=== PATIENT | female | born 1970 | race Caucasian/White ===

== ENCOUNTER 2018-01-17 07:38 | Inpatient (IN) ==
--- NOTE | 2018-01-17 07:41 | Emergency Department Note ---
Disposition Clinical Impression: Chest pain, Elevated troponin I level, NSTEMI (non-ST elevated myocardial infarction) Disposition: Admitted As Inpatient Condition: Good General Adult HPI - General Chief complaint: ED Chest Pain Stated complaint: Chest pain Time Seen by Provider: 01/17/18 07:40 - Related Data Home Medications Medication Instructions Recorded Confirmed Atorvastatin [Lipitor] 10 mg PO HS 10/12/17 01/17/18 Clopidogrel [Plavix] 75 mg PO DAILY 10/12/17 01/17/18 Levothyroxine [Synthroid] 75 mcg PO 0630 10/12/17 01/17/18 Lisinopril [Zestril] 10 mg PO DAILY 10/12/17 01/17/18 Aspirin [Lo-Dose Aspirin EC] 81 mg PO DAILY 01/17/18 01/17/18 Previous Rx's Medication Instructions Recorded Tramadol HCl [Ultram] 50 mg PO TID PRN 3 Days #9 tab 01/14/18 Allergies Allergy/AdvReac Type Severity Reaction Status Date / Time codeine AdvReac Vomiting Verified 01/17/18 08:16 anesthesia AdvReac Drowsy Uncoded 01/17/18 08:16 Past Medical History - Past Medical History Medical history: Reports: non-contributory Surgical history: Reports: angioplasty/stent Psychiatric history: Reports: no psych history - Social History Smoking Status: Never smoker Smokeless Tobacco Status: No Alcohol use: Reports: none Drug use: Reports: none Course Vital Signs Temperature 98.5 F 01/17/18 07:39 Pulse Rate 75 01/17/18 07:39 Respiratory Rate 16 01/17/18 07:39 Blood Pressure 126/65 01/17/18 07:39 O2 Sat by Pulse Oximetry 100 01/17/18 07:39 Temperature 98.2 F 01/17/18 15:30 Pulse Rate 79 01/17/18 15:30 Respiratory Rate 18 01/17/18 15:30 Blood Pressure 107/64 01/17/18 15:30 O2 Sat by Pulse Oximetry 95 01/17/18 15:30 Oxygen Delivery Oxygen Delivery Room Air Medical Decision Making - Lab Data Result diagrams: 01/17/18 14:35 01/17/18 08:06 Lab Results 01/17/18 01/17/18 01/17/18 Range/Units 08:06 08:06 08:06 WBC 14.2 H (4.3-11.1) K/mcL RBC 4.61 (3.82-4.97) M/mcL Hgb 13.1 (11.5-15.4) g/dL Hct 40.6 (35.3-44.9) % MCV 88.1 (83.0-100.0) fL MCH 28.4 (28.0-33.3) pg MCHC 32.3 (31.6-35.5) g/dL RDW 13.2 (11.5-14.5) % Plt Count 269 (140-400) K/mcL MPV 10.6 (9.4-12.4) fL Immature Gran % 0.7 (0-4) % Seg Neutrophils % 65.4 % Lymphocytes % 26.3 % Monocytes % 5.9 % Eosinophils % 1.3 % Basophils % 0.4 % Neutrophils # 9.3 H (1.6-8.9) K/mcL Lymphocytes # 3.7 (0.6-4.6) K/mcL Monocytes # 0.8 (0.0-1.3) K/mcL Eosinophils # 0.2 (0.0-0.6) K/mcL Basophils # 0.1 (0.0-0.2) K/mcL Immature Plt Fraction 5.1 (1.1-6.1) % PT 10.9 (9.4-12.1) Seconds INR 1.0 APTT 26.3 (26.0-36.0) Seconds Sodium 137 (136-145) mEq/L Potassium 4.5 (3.5-5.1) mEq/L Chloride 105 (98-107) mEq/L Carbon Dioxide 26 (23-29) mEq/L BUN 14 (6-20) mg/dL Creatinine 0.83 (0.60-1.20) mg/dL Est GFR ( Amer) > 60 (> 60) Est GFR (Non-Af Amer) > 60 (> 60) BUN/Creatinine Ratio 17 (6-26) Glucose 150 H (70-105) mg/dL Calculated Osmolality 287 (280-300) Calcium 8.9 (8.6-10.3) mg/dL Troponin I (< 0.04) ng/mL 01/17/18 Range/Units 08:06 WBC (4.3-11.1) K/mcL RBC (3.82-4.97) M/mcL Hgb (11.5-15.4) g/dL Hct (35.3-44.9) % MCV (83.0-100.0) fL MCH (28.0-33.3) pg MCHC (31.6-35.5) g/dL RDW (11.5-14.5) % Plt Count (140-400) K/mcL MPV (9.4-12.4) fL Immature Gran % (0-4) % Seg Neutrophils % % Lymphocytes % % Monocytes % % Eosinophils % % Basophils % % Neutrophils # (1.6-8.9) K/mcL Lymphocytes # (0.6-4.6) K/mcL Monocytes # (0.0-1.3) K/mcL Eosinophils # (0.0-0.6) K/mcL Basophils # (0.0-0.2) K/mcL Immature Plt Fraction (1.1-6.1) % PT (9.4-12.1) Seconds INR APTT (26.0-36.0) Seconds Sodium (136-145) mEq/L Potassium (3.5-5.1) mEq/L Chloride (98-107) mEq/L Carbon Dioxide (23-29) mEq/L BUN (6-20) mg/dL Creatinine (0.60-1.20) mg/dL Est GFR ( Amer) (> 60) Est GFR (Non-Af Amer) (> 60) BUN/Creatinine Ratio (6-26) Glucose (70-105) mg/dL Calculated Osmolality (280-300) Calcium (8.6-10.3) mg/dL Troponin I 0.05 H* (< 0.04) ng/mL Attestation Statement - Attestation Attestation: I examined this patient and my medical decision-making was reviewed with the Resident Physician. I agree with the documented findings, disposition and treatment plan as described except to the extent set forth below. Reri-[id number]-[id number] time provided Patient arrives complaining of chest discomfort. She arrives by EMS from home. She was evaluated upon arrival by both myself and the resident physician Dr. Soria. ECG ordered
--- NOTE | 2018-01-17 07:44 | Emergency Department Note ---
Disposition Clinical Impression: Elevated troponin I level, NSTEMI (non-ST elevated myocardial infarction) Chest pain Qualifiers: Chest pain type: unspecified Qualified Code(s): R07.9 - Chest pain, unspecified Disposition: Admitted As Inpatient Condition: Good Chest Pain HPI - General Chief Complaint: ED Chest Pain Stated Complaint: Chest pain Time Seen by Provider: 01/17/18 07:40 Source: patient Limitations: no limitations Vital Signs Reviewed: Yes Nursing Notes Reviewed: Yes - History of Present Illness HPI Narrative: 39-year-old female history of CAD, status post 2 stents, presents complaint of chest pain, substernal with radiation to her neck, she did take aspirin in route by EMS but refused nitroglycerin initially. She states her pain is 8 out of 10, cramping feels like pressure and tightness in quality. Patient is no history of DVT or PE. No history of recent hemoptysis hematochezia or melena. Pt complaint: chest pain Severity scale (1-10): 9 - Related Data Home Medications Medication Instructions Recorded Confirmed Atorvastatin [Lipitor] 10 mg PO HS 10/12/17 01/17/18 Clopidogrel [Plavix] 75 mg PO DAILY 10/12/17 01/17/18 Levothyroxine [Synthroid] 75 mcg PO 0630 10/12/17 01/17/18 Lisinopril [Zestril] 10 mg PO DAILY 10/12/17 01/17/18 Aspirin [Lo-Dose Aspirin EC] 81 mg PO DAILY 01/17/18 01/17/18 Previous Rx's Medication Instructions Recorded Tramadol HCl [Ultram] 50 mg PO TID PRN 3 Days #9 tab 01/14/18 Allergies Allergy/AdvReac Type Severity Reaction Status Date / Time codeine AdvReac Vomiting Verified 01/17/18 08:16 anesthesia AdvReac Drowsy Uncoded 01/17/18 08:16 All systems ED: reviewed and negative except as stated. Review of Systems: As Per HPI Constitutional: Denies: fever, chills Eyes: Denies: eye pain ENT ED: Denies: ear pain Cardiovascular: Reports: as per HPI, chest pain Respiratory: Denies: cough, dyspnea Gastrointestinal: Denies: abdominal pain Genitourinary: Denies: urgency, dysuria Musculoskeletal: Denies: back pain Integumentary: Denies: rash Chest Pain PMH - Past Medical History Medical history: Reports: non-contributory Surgical history: Reports: angioplasty/stent Psychiatric history: Reports: no psych history - Social History Smoking Status: Never smoker Alcohol use: Reports: none Drug use: Reports: none Physical Exam Constitutional: Middle-aged female appears uncomfortable. Vital signs stable Neck: normal inspection, neck is supple, no JVD Resp: normal chest inspection, CTA bilaterally, no resp distress, no wheezes/ rales/rhonchi CV: RRR, no murmurs/gallops/rubs, S1 and S2 heard Extremity: +2 bilateral radial and posterial tibial pulses, no pedal edema GI: normal inspection, Soft, NTND, no peritoneal signs, no palpable abdominal aortic aneurysm Back: normal inspection, no tenderness to palpation Neuro: A&O3, no gross motor or sensory deficits bilaterally MSK: normal inspection, bilateral UE and LE with normal ROM Skin: No rashes, skin warm, dry, intact - General Limitations: no limitations General appearance: alert, in distress Course Course Narrative: 39-year-old female with CAD, records request obtain CBC BMP troponin, EKG shows no acute ischemic changes, nitroglycerin trial started. Aspirin was already given prehospital. - Reevaluation(s) Reevaluation #1: Admitted to the hospitalist Dr. Ventura currently completely chest pain- free, admitted for an STEMI, elevated troponin chest pain, hospital service Time: 10:51 Vital Signs Temperature 98.5 F 01/17/18 07:39 Pulse Rate 75 01/17/18 07:39 Respiratory Rate 16 01/17/18 07:39 Blood Pressure 126/65 01/17/18 07:39 O2 Sat by Pulse Oximetry 100 01/17/18 07:39 Temperature 98.5 F 01/17/18 07:39 Pulse Rate 78 01/17/18 08:37 Respiratory Rate 20 01/17/18 09:46 Blood Pressure 137/75 01/17/18 09:46 O2 Sat by Pulse Oximetry 98 01/17/18 08:37 Oxygen Delivery Oxygen Delivery Room Air Chest Pain - Differential Diagnosis Likely: atypical chest pain, chest pain - Medical Records Medical records reviewed: Yes I reviewed the patient's medical records. - Lab Data Lab results reviewed: Yes I reviewed the patient's lab results. Result diagrams: 01/17/18 08:06 01/17/18 08:06 Lab Results 01/17/18 01/17/18 01/17/18 Range/Units 08:06 08:06 08:06 WBC 14.2 H (4.3-11.1) K/mcL RBC 4.61 (3.82-4.97) M/mcL Hgb 13.1 (11.5-15.4) g/dL Hct 40.6 (35.3-44.9) % MCV 88.1 (83.0-100.0) fL MCH 28.4 (28.0-33.3) pg MCHC 32.3 (31.6-35.5) g/dL RDW 13.2 (11.5-14.5) % Plt Count 269 (140-400) K/mcL MPV 10.6 (9.4-12.4) fL Immature Gran % 0.7 (0-4) % Seg Neutrophils % 65.4 % Lymphocytes % 26.3 % Monocytes % 5.9 % Eosinophils % 1.3 % Basophils % 0.4 % Neutrophils # 9.3 H (1.6-8.9) K/mcL Lymphocytes # 3.7 (0.6-4.6) K/mcL Monocytes # 0.8 (0.0-1.3) K/mcL Eosinophils # 0.2 (0.0-0.6) K/mcL Basophils # 0.1 (0.0-0.2) K/mcL Immature Plt Fraction 5.1 (1.1-6.1) % PT 10.9 (9.4-12.1) Seconds INR 1.0 APTT 26.3 (26.0-36.0) Seconds Sodium 137 (136-145) mEq/L Potassium 4.5 (3.5-5.1) mEq/L Chloride 105 (98-107) mEq/L Carbon Dioxide 26 (23-29) mEq/L BUN 14 (6-20) mg/dL Creatinine 0.83 (0.60-1.20) mg/dL Est GFR ( Amer) > 60 (> 60) Est GFR (Non-Af Amer) > 60 (> 60) BUN/Creatinine Ratio 17 (6-26) Glucose 150 H (70-105) mg/dL Calculated Osmolality 287 (280-300) Calcium 8.9 (8.6-10.3) mg/dL Troponin I (< 0.04) ng/mL 01/17/18 Range/Units 08:06 WBC (4.3-11.1) K/mcL RBC (3.82-4.97) M/mcL Hgb (11.5-15.4) g/dL Hct (35.3-44.9) % MCV (83.0-100.0) fL MCH (28.0-33.3) pg MCHC (31.6-35.5) g/dL RDW (11.5-14.5) % Plt Count (140-400) K/mcL MPV (9.4-12.4) fL Immature Gran % (0-4) % Seg Neutrophils % % Lymphocytes % % Monocytes % % Eosinophils % % Basophils % % Neutrophils # (1.6-8.9) K/mcL Lymphocytes # (0.6-4.6) K/mcL Monocytes # (0.0-1.3) K/mcL Eosinophils # (0.0-0.6) K/mcL Basophils # (0.0-0.2) K/mcL Immature Plt Fraction (1.1-6.1) % PT (9.4-12.1) Seconds INR APTT (26.0-36.0) Seconds Sodium (136-145) mEq/L Potassium (3.5-5.1) mEq/L Chloride (98-107) mEq/L Carbon Dioxide (23-29) mEq/L BUN (6-20) mg/dL Creatinine (0.60-1.20) mg/dL Est GFR ( Amer) (> 60) Est GFR (Non-Af Amer) (> 60) BUN/Creatinine Ratio (6-26) Glucose (70-105) mg/dL Calculated Osmolality (280-300) Calcium (8.6-10.3) mg/dL Troponin I 0.05 H* (< 0.04) ng/mL - Radiology Data Radiology results reviewed: Yes I reviewed the patient's radiology results. Chest X-Ray 01/17/18 07:43 IMPRESSION: No acute process. D/ / Kaleb Renee MD / Kaleb Renee MD Interpreting Provider: Kaleb Renee MD - EKG Data EKG attestation: Yes I reviewed and interpreted this EKG. EKG shows normal: sinus rhythm Rate: normal Rhythm: NSR (95 bpm [place] 120 QRS [address] segment elevations or depressions.) [place]/QRS: normal Heart Score - Score History: Moderately Suspicious EKG: Non Specific repolarisation Disturbance Age: 45-65 Risk Factors: 1-2 risk factors Troponin: Less than normal limit HEART Score Total: 4
[2018-01-17 08:14] LABS: Basophils # 0.1 K/mcL (0.0-0.2); Basophils % 0.4 %; Eosinophils # 0.2 K/mcL (0.0-0.6); Eosinophils % 1.3 %; Hematocrit 40.6 % (35.3-44.9); Hemoglobin 13.1 g/dL (11.5-15.4); Immature Granulocytes % 0.7 % (0-4); Immature Platelets 5.1 % (1.1-6.1); Lymphocytes # 3.7 K/mcL (0.6-4.6); Lymphocytes % 26.3 %; Mean Corpuscular HGB Conc 32.3 g/dL (31.6-35.5); Mean Corpuscular Hemoglobin 28.4 pg (28.0-33.3); Mean Corpuscular Volume 88.1 fL (83.0-100.0); Mean Platelet Volume 10.6 fL (9.4-12.4); Monocytes # 0.8 K/mcL (0.0-1.3); Monocytes % 5.9 %; Neutrophils # 9.3 K/mcL (1.6-8.9); Platelet Count 269 K/mcL (140-400); Red Blood Count 4.61 M/mcL (3.82-4.97); Red Cell Distribution Width 13.2 % (11.5-14.5); Segmented Neutrophils % 65.4 %
[2018-01-17 08:23] LABS: Prothrombin Time 10.9 Seconds (9.4-12.1)
[2018-01-17 08:25] LABS: Activated Partial Thrombo Time 26.3 Seconds (26.0-36.0)
[2018-01-17] MEDS: Nitroglycerin 0.4 MG TAB.SUBL SL ONE ×2 (08:28→08:33)
[2018-01-17 08:30] LABS: BUN/Creatinine Ratio 17 (6-26); Blood Urea Nitrogen 14 mg/dL (6-20); Calcium 8.9 mg/dL (8.6-10.3); Carbon Dioxide 26 mEq/L (23-29); Chloride 105 mEq/L (98-107); Glucose 150 mg/dL (70-105); Osmolality,Calculated 287 (280-300); Potassium 4.5 mEq/L (3.5-5.1); Sodium 137 mEq/L (136-145); eGFR For African Americans > 60 (> 60); eGFR For Non-African Americans > 60 (> 60)
[2018-01-17] MEDS ORDERED: *HR* HYDROcodone/Acet 5/325 mg TABLET PO PRN (09:31)
[2018-01-17] MEDS ORDERED: *HR* Promethazine 25 MG/ML VIAL IVP PRN (09:31)
[2018-01-17] MEDS ORDERED: Acetaminophen 325 MG TABLET PO PRN (09:31)
[2018-01-17] MEDS ORDERED: Ondansetron ODT 4 MG TAB.RAPDIS SL PRN (09:31)
[2018-01-17] MEDS ORDERED: Naloxone 0.4 MG/ML INJ IVP PRN (09:31)
[2018-01-17] MEDS ORDERED: traMADol 50 MG TABLET PO PRN (11:00)
[2018-01-17] MEDS ORDERED: Nitroglycerin 0.4 MG TAB.SUBL SL PRN (11:00)
--- NOTE | 2018-01-17 12:35 | Internal Med History&Physical ---
Date of Encounter: 01/17/18 Time of Encounter: 11:40 Assessment and Plan (1) Chest pain Current visit: Yes Status: Acute Will admit the pt into Tele for observation Will place pt on topline beading machine tender check serial troponin Her initial troponin slightly elevated at 0.05 EKG reviewed - NSR, no acute ischemic changes, Cont ASA + Plavix + Statin + B mireille Will check FLP in AM Card consulted Keep her NPO until next Troponin, if her troponin keep trending up will consider starting her on Heparin gtt and may need LHC too Will defer to Card about further testing LHC vs Stress test Qualifiers: Chest pain type: unspecified Qualified Code(s): R07.9 - Chest pain, unspecified (2) Elevated troponin I level Current visit: Yes Status: Acute trend on trop (3) CAD (coronary artery disease) Current visit: Yes Status: Acute s/p stent as per pt will try to obtain medical records from [facility] cont ASA + Plavix + Statin + BB Qualifiers: Coronary Disease-Associated Artery/Lesion type: [place] artery [place] vs. transplanted heart: [place] heart Associated angina: with stable angina Qualified Code(s): I25.118 - Atherosclerotic heart disease of [place] coronary artery with other forms of angina pectoris (4) HTN (hypertension) Current visit: Yes Status: Acute stable resumed home meds will give hydralazine IV PRN Qualifiers: Hypertension type: essential hypertension Qualified Code(s): I10 - Essential (primary) hypertension (5) HLD (hyperlipidemia) Current visit: Yes Status: Acute on statin Qualifiers: Hyperlipidemia type: unspecified Qualified Code(s): E78.5 - Hyperlipidemia , unspecified (6) Tobacco dependence Current visit: Yes Status: Acute counseled to quit on nicotine patch (7) Borderline diabetes mellitus Current visit: Yes Status: Acute will check HbA1C In AM Internal Medicine - H&P: HPI Chief complaint: Chest pain Admitted From: Emergency Dept Plans for Post Hospital Care: Home History of present illness: Ms. Youssef is a 47 year old female with known borderline DM2, HTN, HLD and CAD s/p stent x 2 in March 2017 @ [place], [place] now she presented to our ER with worsening Left chest wall pain radiating to her left side of neck and left arm. Pt stated her pain started this morning 8/10 in severity, radiating to her Left arm, associated with some nausea, pressure and tightness like pain which improved with SL Nitro. She does smoke 1/2 PPD. Denied any cold / cough / SOB. Past Med Surg Social Fam HX - Past Medical History Medical history: hyperlipidemia, hypertension, myocardial infarction Psychiatric history: no psych history - Past Surgical History Surgical History: angioplasty/stent - Social History Smoking Status: Never smoker Smokeless Tobacco Status: No Alcohol use: none Drug use: none - Family History Father Age at : 42 Cause of : MD Hx Family Cardiac Disorders: Yes Mother Living Status: Cause of : COPD Hx Family Respiratory Disorders: Yes Internal Medicine - H&P: Meds Atorvastatin [Lipitor] 10 mg PO HS 10/12/17 [History] Clopidogrel [Plavix] 75 mg PO DAILY 10/12/17 [History] Levothyroxine [Synthroid] 75 mcg PO 0630 10/12/17 [History] Lisinopril [Zestril] 10 mg PO DAILY 10/12/17 [History] Tramadol HCl [Ultram] 50 mg PO TID PRN 3 Days #9 tab 01/14/18 [Rx] Aspirin [Lo-Dose Aspirin EC] 81 mg PO DAILY 01/17/18 [History] 3 Allergy/AdvReac Type Severity Reaction Status Date / Time codeine AdvReac Vomiting Verified 01/17/18 08:16 anesthesia AdvReac Drowsy Uncoded 01/17/18 08:16 All Systems PM: A 10-system review of systems was performed and is negative for pertinent findings except as documented above in the HPI. Review of systems: All the systems are reviewed everything is benign except the systems and symptoms I mentioned in the history of present illness - Constitutional Vitals: Temp Pulse Resp BP Pulse Ox 98.0 F 73 14 145/76 97 01/17/18 11:32 01/17/18 11:32 01/17/18 11:32 01/17/18 11:32 01/17/18 11:32 General appearance: Present: cooperative, A&O X 3, answers questions appropriately - Head Head exam: Present: atraumatic, normal inspection - Neck Neck exam general surgery: Present: supple - Respiratory Respiratory exam: Present: decreased breath sounds. Absent: rales, respiratory distress, rhonchi, wheezes - Cardiovascular Cardiovascular exam: Present: RRR, +S1, +S2. Absent: tachycardia - GI/Abdominal GI/Abdominal exam: Present: normal bowel sounds, soft. Absent: rebound, rigid, tenderness - Extremities Exam Extremities exam: Absent: calf tenderness, pedal edema, tenderness - Back Exam Back exam: Absent: CVA tenderness (L), CVA tenderness (R) - Neurological Exam Neurological exam: Present: alert, oriented X3 - Psychiatric Psychiatric exam: Present: normal affect, normal mood - Skin Skin exam: Absent: rash Internal Med - H&P Results - Labs CBC & Chem 7: 01/17/18 08:06 01/17/18 08:06
--- NOTE | 2018-01-17 13:02 | Electrocardiograph Report ---
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
--- NOTE | 2018-01-17 13:03 | Electrocardiograph Report ---
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
[2018-01-17] MEDS: Nicotine 14 MG PATCH.TD24 TD SCH (13:38)
--- NOTE | 2018-01-17 14:12 | Cardiology Consult Note ---
<Jaspal Kamara R - Last Filed: 01/17/18 14:38> Date of Encounter: 01/17/18 Time of Encounter: 14:04 Assessment and Plan (1) NSTEMI (non-ST elevated myocardial infarction) Current Visit: Yes Status: Acute Troponin 0.05, 0.35. Trend for total of 3. EKG shows no acute ischemic changes compared to prior 09/2017. Per HPI, woke to left sided chest pain, heaviness with radiation to left arm and neck, associated with nausea, vomiting, diaphoresis. Pain improved with nitro in ED, has now subsided and currently chest pain free. Hx CAD with PCI 03/2017 at [place]. C report reviewed. Pt initially had LHC , revealed 50% mLAD, 90% distal LCx, 90% OM1, 80-90% pRCA, RPDA diffuse plaque disease. Cath report states consider CABG vs medical management. Upon questioning pt, she states CABG was never mentioned to her. No family at bedside to confirm or deny this. Cath report 04/16/17 states KAVITA was placed to OM1 with residual stenosis of 0% with ANN 3 flow. Pt admits to missing Plavix multiple times per week due to "being bad at taking medication". Echo to evaluate structure and function. Will request prior echo from [facility] as it does not appear LV gram was done on [facility] and EF is unknown. Heparin gtt started. Continue ASA, Plavix, Statin. Start BB and Imdur. Given her known remaining disease that was not intervened on and noncompliance with Plavix, will need to determine if LHC is warranted vs. medical management. Further recommendations to follow once seen and evaluated by Dr. Villalobos. (2) CAD (coronary artery disease) Current Visit: Yes Status: Acute As above. ASA, Plavix, Statin, BB, Imdur. Qualifiers: Coronary Disease-Associated Artery/Lesion type: [place] artery [place] vs. transplanted heart: [place] heart Associated angina: with stable angina Qualified Code(s): I25.118 - Atherosclerotic heart disease of [place] coronary artery with other forms of angina pectoris (3) Chest pain Current Visit: Yes Status: Acute As above and HPI. Woke from sleep, improved with nitro and now chest pain free. NSTEMI, troponin 0.05, 0.35. Add Imdur 30mg daily. Qualifiers: Chest pain type: unspecified Qualified Code(s): R07.9 - Chest pain, unspecified (4) Tobacco dependence Current Visit: Yes Status: Acute Smoking cessation counseling given. Discussion w patient/family: The assessment and plan as outlined above was discussed with the patient and/or family members who expressed understanding and agreement. All questions were answered. Thank you for involving us in the care of your patient. Please call with any questions. I will discuss all the above with Dr. Villalobos and make changes as necessary. History of Present Illness Consult date: 01/17/18 Requesting physician: Nathalia Ventura Consult reason: elevated troponin Chief complaint: chest pain History of present illness: Ms. Youssef is a 47 year old female with known borderline DM2, HTN, retroperitoneal fibrosis, HLD and CAD s/p PCI in March 2017 at [facility] that presented to ED with left sided chest pain, described as heaviness, radiating to her left side of neck and left arm. Pt states her pain started this morning 810 in severity waking her from sleep. It was also associated with an episode of nausea/vomiting, diaphoresis. She states pain was improved after receiving nitro in ED and has since subsided. Currently chest pain free. Initial troponin 0.05, then 0.35. Cardiology consulted for further recommendations. Pt reports she misses doses of Plavix multiple times per week due to "being bad at taking medicine and difficult to remember". She unfortunately continues to smoke 1PPD. EKG no significant change from prior 2016. Reviewed C records from [place]. Appears she had a LHC 04/15/17 with 50% mLAD , 90% distal LCx, 90% OM1, 80-90% pRCA, RPDA diffuse plaque disease. Cath report states consider CABG vs medical management. Upon questioning pt, she states CABG was never mentioned to her. Cath report 04/16/17 states KAVITA was placed to OM1 with residual stenosis of 0% with TIMI3. Past Med Surg Social Fam HX - Past Medical History Medical history: hyperlipidemia, hypertension, myocardial infarction Psychiatric history: no psych history - Past Surgical History Surgical History: angioplasty/stent - Social History Smoking Status: Never smoker Smokeless Tobacco Status: No Alcohol use: none Drug use: none - Family History Father Age at : 42 Cause of : NC Hx Family Cardiac Disorders: Yes Mother Living Status: Cause of : COPD Hx Family Respiratory Disorders: Yes Medications and Allergies Atorvastatin [Lipitor] 10 mg PO HS 10/12/17 [History] Clopidogrel [Plavix] 75 mg PO DAILY 10/12/17 [History] Levothyroxine [Synthroid] 75 mcg PO 0630 10/12/17 [History] Lisinopril [Zestril] 10 mg PO DAILY 10/12/17 [History] Tramadol HCl [Ultram] 50 mg PO TID PRN 3 Days #9 tab 01/14/18 [Rx] Aspirin [Lo-Dose Aspirin EC] 81 mg PO DAILY 01/17/18 [History] 3 Allergy/AdvReac Type Severity Reaction Status Date / Time codeine AdvReac Vomiting Verified 01/17/18 08:16 anesthesia AdvReac Drowsy Uncoded 01/17/18 08:16 All Systems Review: The remainder of the systems were reviewed and are negative - Cardiovascular Cardiovascular: as per HPI, chest pain at rest, chest pain with exertion, diaphoresis, dyspnea on exertion, radiating jaw, neck or arm pain - Gastrointestinal Gastrointestinal: nausea Physical Examination Vital Signs, Last 4 Hours Temp Pulse Resp BP Pulse Ox 01/17/18 11:32 98.0 F 73 14 145/76 97 01/17/18 10:13 98.4 F 70 18 153/71 92 Vital Signs Temp Pulse Resp BP Pulse Ox 01/17/18 11:32 98.0 F 73 14 145/76 97 01/17/18 10:13 98.4 F 70 18 153/71 92 01/17/18 09:46 20 137/75 01/17/18 08:37 78 20 103/61 98 01/17/18 08:32 79 20 129/74 96 01/17/18 08:28 78 20 140/77 98 01/17/18 08:18 65 20 141/72 96 01/17/18 08:17 99 01/17/18 07:39 98.5 F 75 16 126/65 100 Intake and Output 01/16/18 01/17/18 01/17/18 23:59 07:59 15:59 Other: # Voids 1 Weight 86.183 kg 85.36 kg Blood Glucose* 100 Patient Weight 01/17/18 23:59 Weight 85.36 kg General: Conversant, No Apparent Distress HEENT: Atraumatic, Normocephaly, Mucus Membranes Moist Neck: No JVD, Normal carotid pulses Cardiac: Reg Rate and Rhythm, Normal S1 and S2, No Murmur Lungs: Normal Breath Sounds, No Wheeze, Rales, Rhonchi Neuro: Alert and responsive, No focal deficits noted Abdomen: Soft, Non-Tender Skin: No rashes noted on visualized skin Musculoskeletal: No Chest Wall Tenderness Extremities: No Clubbing, No Cyanosis, No Edema, Normal Pulses Results 01/17/18 08:06 01/17/18 08:06 Short CBC 01/17/18 Range/Units 08:06 WBC 14.2 H (4.3-11.1) K/mcL Hgb 13.1 (11.5-15.4) g/dL Hct 40.6 (35.3-44.9) % Plt Count 269 (140-400) K/mcL Neutrophils # 9.3 H (1.6-8.9) K/mcL BMP 01/17/18 Range/Units 08:06 Sodium 137 (136-145) mEq/L Potassium 4.5 (3.5-5.1) mEq/L Chloride 105 (98-107) mEq/L Carbon Dioxide 26 (23-29) mEq/L BUN 14 (6-20) mg/dL Creatinine 0.83 (0.60-1.20) mg/dL Glucose 150 H (70-105) mg/dL Calcium 8.9 (8.6-10.3) mg/dL Cardiac Enzymes 01/17/18 01/17/18 Range/Units 13:47 08:06 Troponin I 0.35 H* 0.05 H* (< 0.04) ng/mL Impressions Chest X-Ray 01/17/18 07:43 IMPRESSION: No acute process. D/ / Kaleb Renee MD / Kaleb Renee MD Interpreting Provider: Kaleb Renee MD Active Medications Acetaminophen (Tylenol) 650 mg PO Q6HR PRN PRN Reason: Mild Pain/Fever Stop: 07/19/18 09:32 Hydrocodone Bitart/Acetaminophen (Switchback 5-325 Mg) 1 tab PO Q6HR PRN PRN Reason: Moderate Pain Stop: 07/19/18 09:32 Aspirin (Aspirin Ec) 81 mg PO DAILY [facility] Stop: 07/20/18 09:01 Atorvastatin Calcium (Lipitor) 10 mg PO HS [facility] Stop: 07/19/18 21:01 Clopidogrel Bisulfate (Plavix) 75 mg PO DAILY [facility] Stop: 07/19/18 11:01 Last Admin: 01/17/18 11:43 Dose: 75 mg Heparin Sodium (Porcine) (Heparin) 4,000 unit IVP Q6HR PRN PRN Reason: SEE COMMENTS Stop: 07/19/18 14:18 Heparin Sodium (Porcine) (Heparin) 2,000 unit IVP Q6H PRN PRN Reason: SEE COMMENTS Stop: 07/19/18 14:18 Hydralazine HCl (Hydralazine) 10 mg IVP Q6HR PRN PRN Reason: Hypertension Stop: 07/19/18 12:47 Heparin Sodium/Dextrose (Heparin 25,000 Unit/500 Ml D5w) 25,000 unit in 500 mls @ 20.486 mls/hr IVC .Q24H PARUL; 12 UNIT/KG/HR PRN Reason: Protocol Stop: 07/19/18 14:31 Levothyroxine Sodium (Synthroid) 75 mcg PO 0630 [facility] Stop: 07/20/18 06:31 Lisinopril (Zestril) 10 mg PO DAILY [facility] PRN Reason: Protocol Stop: 07/19/18 11:01 Last Admin: 01/17/18 11:43 Dose: 10 mg Naloxone HCl (Narcan) 0.4 mg IVP Q2MIN PRN PRN Reason: SEE COMMENTS Stop: 07/19/18 09:32 Nicotine (Nicoderm) 14 mg TD DAILY [facility] PRN Reason: Protocol Stop: 07/19/18 12:46 Last Admin: 01/17/18 13:38 Dose: 14 mg Nitroglycerin (Nitroglycerin) 0.4 mg SL Q5MIN PRN PRN Reason: Chest Pain Stop: 07/19/18 11:01 Ondansetron HCl (Zofran Odt) 4 mg SL Q8HR PRN PRN Reason: Nausea And Vomiting Stop: 07/19/18 09:32 Promethazine HCl (Phenergan) 12.5 mg IVP Q6HR PRN PRN Reason: Nausea And Vomiting Stop: 07/19/18 09:32 Tramadol HCl (Ultram) 50 mg PO TID PRN PRN Reason: Pain Stop: 07/19/18 11:01 - Imaging and Cardiology Cardiac cath: report reviewed - EKG Interpretation EKG results cardiology: personally reviewed, other (12 hr tele AVG HR 77, SR, no significant pauses or arrhythmias) Consult Discharge Plan - Plan Referrals: Evangelina Mehta MD [Primary Care Provider] - <DarianlalitHelen - Last Filed: 01/17/18 16:56> Date of Encounter: 01/17/18 - Attending Attestation I examined this patient and my medical decision-making was reviewed with the APARTMENT COORDINATOR. I agree with the documented findings, disposition and treatment plan as described. Ms. Youssef presents with acute onset chest pain overnight. She is presently chest pain free. ECG demonstrates no acute changes compared to prior. Troponin initially 0.05, now 0.35. Reviewed cath report from [place] in March 2017 demonstrating significant multivessel disease. Impression from the report states medical management vs. CABG. It appears they placed a KAVITA in OM1. Details of the admission are unclear - will request admission and discharge report and consultations. Recommend heparin for anticoagulation, asa, plavix, statin. Discussed consideration for LHC with patient - recommend review of records, trend troponin and await echo. Further recommendations to follow clinical course and review of records. Of note, patient states that she doesn't always remember to take her plavix. She doesn't seem to be aware of DAPT recommendations post PCI. When asked if she would be able to be compliant with DAPT after PCI, she says she would be able to take medicines regularly. Assessment and Plan Discussion w patient/family: The assessment and plan as outlined above was discussed with the patient and/or family members who expressed understanding and agreement. All questions were answered. Thank you for involving us in the care of your patient. Please call with any questions. History of Present Illness History of present illness: Ms. Youssef is a 47 year old female All Systems Review: The remainder of the systems were reviewed and are negative Physical Examination Vital Signs, Last 4 Hours Temp Pulse Resp BP Pulse Ox 01/17/18 15:30 98.2 F 79 18 107/64 95 Results 01/17/18 14:35 01/17/18 08:06 Lab Results 01/17/18 01/17/18 01/17/18 13:47 14:35 14:35 WBC 13.7 H Hgb 12.8 Hct 39.3 Plt Count 294 INR 1.1 APTT 28.2 Troponin I 0.35 H*
[2018-01-17] MEDS ORDERED: *HR* Heparin 5,000 UNIT/ML VIAL IVP PRN ×2 (14:17)
[2018-01-17] MEDS ORDERED: *HR* Heparin 5,000 UNIT/ML VIAL IVP ONE (14:17)
[2018-01-17] MEDS ORDERED: Heparin 25,000 UNIT/500 ML D5W 25,000 UNIT/500 ML BAG IVC SCH (14:30)
[2018-01-17 14:48] LABS: Hematocrit 39.3 % (35.3-44.9); Hemoglobin 12.8 g/dL (11.5-15.4); Mean Corpuscular HGB Conc 32.6 g/dL (31.6-35.5); Mean Corpuscular Hemoglobin 28.6 pg (28.0-33.3); Mean Corpuscular Volume 87.7 fL (83.0-100.0); Mean Platelet Volume 10.5 fL (9.4-12.4); Platelet Count 294 K/mcL (140-400); Red Blood Count 4.48 M/mcL (3.82-4.97); Red Cell Distribution Width 13.2 % (11.5-14.5)
[2018-01-17 14:53] LABS: INR 1.1; Prothrombin Time 11.4 Seconds (9.4-12.1)
[2018-01-17 14:55] LABS: Activated Partial Thrombo Time 28.2 Seconds (26.0-36.0)
[2018-01-17] MEDS: Isosorbide MONOnitrate (24 HR) 30 MG TAB.ER.24H PO SCH (16:06)
[2018-01-17] MEDS: Metoprolol XL (24 HR) Succ 25 MG TAB.ER.24H PO SCH (16:06)
[2018-01-18 02:53] LABS: Basophils # 0.1 K/mcL (0.0-0.2); Basophils % 0.4 %; Eosinophils # 0.2 K/mcL (0.0-0.6); Eosinophils % 1.8 %; Hematocrit 40.2 % (35.3-44.9); Hemoglobin 13.1 g/dL (11.5-15.4); Immature Granulocytes % 0.7 % (0-4); Immature Platelets 4.3 % (1.1-6.1); Lymphocytes # 4.7 K/mcL (0.6-4.6); Lymphocytes % 38.4 %; Mean Corpuscular HGB Conc 32.6 g/dL (31.6-35.5); Mean Corpuscular Hemoglobin 28.9 pg (28.0-33.3); Mean Corpuscular Volume 88.5 fL (83.0-100.0); Mean Platelet Volume 10.6 fL (9.4-12.4); Monocytes # 0.7 K/mcL (0.0-1.3); Monocytes % 5.5 %; Neutrophils # 6.5 K/mcL (1.6-8.9); Platelet Count 284 K/mcL (140-400); Red Blood Count 4.54 M/mcL (3.82-4.97); Red Cell Distribution Width 13.2 % (11.5-14.5); Segmented Neutrophils % 53.2 %
[2018-01-18 03:02] LABS: Hemoglobin A1C 6.5 %
[2018-01-18 03:18] LABS: Chol/HDL Ratio 8.4 (0-4.9); Cholesterol 235 mg/dL (< 200); HDL Cholesterol 28 mg/dL (40-59); Triglycerides 451 mg/dL (< 150)
[2018-01-18] MEDS: Aspirin Enteric Coated 81 MG Tablet PO SCH (08:51)
[2018-01-18] MEDS: Nicotine 14 MG PATCH.TD24 TD SCH (08:51)
[2018-01-18] MEDS: Metoprolol XL (24 HR) Succ 25 MG TAB.ER.24H PO SCH (08:51)
[2018-01-18] MEDS: Isosorbide MONOnitrate (24 HR) 30 MG TAB.ER.24H PO SCH (08:51)
--- NOTE | 2018-01-18 10:06 | Event Note ---
Date of Encounter: 01/18/18 Time of Encounter: 10:00 - Cardiology Event Note Reviewed outside cath records from [facility]. Discussed options with pt and - LHC vs aggressive medical tx. Pt opts for LHC to evaluate for progession of known CAD in setting of nonSTEMI. All risks/benefits discussed by me with patient and . All questions answered. Pt agreeable to proceed with LHC today.
--- NOTE | 2018-01-18 10:07 | Pre-Sedation Evaluation ---
Pre-sedation evaluation - Pre-sedation checklist Date of procedure: 01/18/18 Procedure: [facility] Recent Vitals: Last Vital Signs Temp 98.4 F 01/18/18 06:21 Pulse 89 01/18/18 06:21 Resp 14 01/18/18 06:21 BP 119/69 01/18/18 06:21 Pulse Ox 97 01/18/18 06:21 H&P (including ROS) documented in medical record: Yes Previous reaction to sedatives/anesthetics: No Dietary Status: NPO after Midnight Airway Assessment: Patient can open mouth completely, TMJ function normal, Micrognathia (under-bite, receding chin) absent, Neck with adequate range of motion Dentition: No loose teeth or bridges Possible difficult airway: No ASA Classification *see protocol: CLASS II-Mild systemic disease Plan of Care: Pt appropriate candidate for procedure/moderate/conscious sedation , Risks/benefits of procedure/sedation discussed w/ patient/family
--- NOTE | 2018-01-18 10:43 | Internal Med Progress Note ---
Date of Encounter: 01/18/18 Time of Encounter: 10:20 - Assessment and plan (1) NSTEMI (non-ST elevated myocardial infarction) Current Visit: Yes Status: Acute Assessment and plan: Patient with acute non-ST elevation NC. Cardiology consultation. On IV heparin. Plan for left heart catheterization today. High risk for complications. (2) Diabetes mellitus Current Visit: Yes Status: Chronic Assessment and plan: A1c 6.5. New diagnosis of diabetes. Place patient on diabetic diet. Monitor blood sugars. Sliding scale insulin. Qualifiers: Diabetes mellitus type: type 2 Diabetes mellitus complication status: without complication Diabetes mellitus fci insulin use: without fci use Qualified Code(s): E11.9 - Type 2 diabetes mellitus without complications (3) CAD (coronary artery disease) Current Visit: Yes Status: Chronic Assessment and plan: With chest pain and acute non-ST elevation NC. Continue aspirin and Plavix. Cardiology following. Qualifiers: Coronary Disease-Associated Artery/Lesion type: [place] artery [place] vs. transplanted heart: [place] heart Associated angina: with stable angina Qualified Code(s): I25.118 - Atherosclerotic heart disease of [place] coronary artery with other forms of angina pectoris (4) HTN (hypertension) Current Visit: Yes Status: Chronic Assessment and plan: Controlled at this time. Continue current medications. Qualifiers: Hypertension type: essential hypertension Qualified Code(s): I10 - Essential (primary) hypertension (5) Tobacco dependence Current Visit: Yes Status: Acute Assessment and plan: On nicotine patch. - Subjective Interval history: Patient is doing better today. Denies any chest pain but continues to have some twinges of pain intermittently. On IV heparin. No overt bleeding. Awaiting left heart catheterization planned for later today. - Constitutional Vitals: Temp Pulse Resp BP Pulse Ox 98.4 F 89 14 119/69 97 01/18/18 06:21 01/18/18 06:21 01/18/18 06:21 01/18/18 06:21 01/18/18 06:21 General appearance: Present: cooperative, A&O X 3, answers questions appropriately - Neck Neck exam general surgery: Present: supple, trachea midline. Absent: lymphadenopathy - Respiratory Respiratory exam: Present: CTAB. Absent: accessory muscle use, rales, rhonchi, wheezes - Cardiovascular Cardiovascular exam: Present: RRR, +S1, +S2. Absent: diastolic murmur, gallop, rubs, systolic murmur - GI/Abdominal GI/Abdominal exam: Present: normal bowel sounds, soft, no peritoneal signs. Absent: distended, tenderness - Extremities Exam Extremities exam: Present: warm, radial pulses palpable and symmetrical. Absent : calf tenderness, cyanotic, pedal edema - Neurological Exam Neurological exam: Present: oriented X3, no focal deficits. Absent: facial droop, speech deficit Internal Medicine: Result - Labs CBC & Chem 7: 01/18/18 02:37 01/17/18 08:06 Labs: Short CBC 01/17/18 01/18/18 Range/Units 14:35 02:37 WBC 13.7 H 12.3 H (4.3-11.1) K/mcL Hgb 12.8 13.1 (11.5-15.4) g/dL Hct 39.3 40.2 (35.3-44.9) % Plt Count 294 284 (140-400) K/mcL Neutrophils # 6.5 (1.6-8.9) K/mcL Cardiac Enzymes 01/17/18 01/17/18 Range/Units 13:47 20:28 Troponin I 0.35 H* 0.32 H* (< 0.04) ng/mL - ABG Interpretation ABG results: PT/INR, D-dimer PT 11.4 Seconds (9.4-12.1) 01/17/18 14:35 Consult Discharge Plan - Plan Referrals: Evangelina Mehta MD [Primary Care Provider] -
[2018-01-18] MEDS ORDERED: 0.9 % Sodium Chloride 1,000 ML ONE ×2 (11:38→11:57)
[2018-01-18] MEDS ORDERED: Heparin 1,000 UNITS/500 mL 500 ML ONE (11:38)
[2018-01-18] MEDS ORDERED: ISOVUE-370 200 ML INFUS..BTL IV ONE (11:39)
[2018-01-18] MEDS ORDERED: *HR* Heparin 10,000 UNIT/10 ML VIAL ONE (11:39)
[2018-01-18] MEDS ORDERED: *HR* FentaNYL (PF) 100 MCG/2 ML VIAL ONE (11:40)
[2018-01-18] MEDS ORDERED: *HR* Midazolam HCl 2 MG/2 ML VIAL ONE ×2 (11:40→12:31)
[2018-01-18] MEDS ORDERED: Nitroglycerin 1,000 MCG/10 ML VIAL IV ONE (11:47)
[2018-01-18] MEDS ORDERED: *HR* Bivalirudin 250 MG VIAL IVC ONE (12:30)
--- NOTE | 2018-01-18 14:52 | Invasive Diagnostic Lab Proc ---
Name: Benita Youssef Date of Study: 01/18/2018 Date: 1970 Ht: 65.0in Medical Record#: [id number] Age: 47 Wt: 182.98lb Gender: Female BSA: 1.9 Order #: [id number] BMI: 30.49 Physicians Procedure Physician: Talisha Baker MD, [facility] Referring MD: Referring MD: Staff Name Position Time In Maria M Treviño RN Monitor 12:03 PM Yuridia Zhao RN [employer] 12:03 PM Dipika Prather RT (R) Scrub 12:03 PM Indications Indication Non-Stemi Procedures Performed Procedure L HRT ARTERY/VENTRICLE ANGIO PRQ CARD KAVITA STENT W/ANGIO 1 VSL Pre-Procedure Checklist Informed consent is complete signed and on chart. H&P is on chart. ID band is on and ID verified with patient. Patient NPO for procedure The procedure was described for the patient and questions were answered. ECG is on chart. Plan of Care Patient will tolerate the procedure without complications. Adequate level of comfort will be maintained. Hemodynamics will remain stable Patient will recover from procedure without complications. Respiratory function will be maintained. Cardiac rhythm will remain stable. Patient temperature will be maintained. Patient and/or family have verbalized understanding of the procedure. Patient Education Chief Complaint/Reason for Test: Cardiac Cath Developmental Category: Adult (18-64 years) Developmentally Appropriate for Age: Yes Learning Barriers: None Education Needs: Procedure Education Method: Verbal Information Taught: Cardiac Cath Educational Evaluation: Able to repeat information Intravenous Access Time IV Size Location DC'd Fluid/Drip Rate Units RN 09:04 PM 20g 1 11/28" Patent On Arrival Lt Arm 0.9NaCl 25 ml/hr Yuridia Zhao RN Allergies codeine anesthesia Vital Signs Time BP (mmHg) HR (bpm) O2 Sat. RR (bpm) LOC 12:06 PM / % 5 = Fully awake and oriented or at pre-proc level 12:06 PM / % 4 = Oriented but drowsy 12:21 PM / % 4 = Oriented but drowsy 12:36 PM / % 5 = Fully awake and oriented or at pre-proc level 12:02 PM 119 / 70 91 98 % 11 12:07 PM 127 / 72 90 100 % 9 12:12 PM 119 / 68 89 92 % 19 12:17 PM 98 / 56 91 93 % 15 12:22 PM 105 / 60 93 93 % 15 12:27 PM 108 / 65 90 92 % 15 12:32 PM 121 / 69 83 94 % 13 12:37 PM 124 / 72 85 95 % 16 12:42 PM 135 / 83 80 97 % 15 12:47 PM 140 / 84 87 98 % 9 12:53 PM 162 / 87 77 97 % 10 01:05 PM 123 / 79 80 99 % 18 5 = Fully awake and oriented or at pre-proc level 01:20 PM 114 / 77 84 92 % 18 5 = Fully awake and oriented or at pre-proc level 01:30 PM 103 / 76 80 93 % 16 5 = Fully awake and oriented or at pre-proc level 01:45 PM 106 / 76 80 92 % 16 5 = Fully awake and oriented or at pre-proc level 02:00 PM 124 / 77 77 96 % 13 5 = Fully awake and oriented or at pre-proc level 02:15 PM 112 / 77 79 98 % 13 5 = Fully awake and oriented or at pre-proc level 02:30 PM 121 / 76 84 93 % 13 5 = Fully awake and oriented or at pre-proc level Procedural Medications Time Medication Dose Units Method Given By 12:06 PM Oxygen 2 L/min nasal cannula Yuridia Zhao RN 12:06 PM Versed 2 mg Intravenous Yuridia Zhao RN 12:06 PM Fentanyl 50 mcg Intravenous Yuridia Zhao RN 12:15 PM Lidocaine 2% 17 ml Subcutaneous Talisha Baker MD, FACC 12:33 PM Angiomax 0.75mg/kg bolus: 13 ml Intravenous Yuridia Zhao RN 12:33 PM Angiomax 1.75mg/kg/hr: 30 ml/hr Intravenous Yuridia Zhao RN 12:46 PM Nitroglycerin 200 mcg Intracoronary Talisha Baker MD, FACC 12:48 PM Plavix 600 mg Orally Yuridia Zhao RN 01:38 PM Angiomax 1.75mg/kg/hr: Dc'd Yuridia Zhao RN ASA Classification: CLASS II- Mild systemic disease (i.e. well-controlled diabetes, hypertension, asthma, cigarette smoking) Bart Score Preprocedure Postprocedure Activity 2- Moves 4 extremities sustained head lift Activity 2- Moves 4 extremities sustained head lift Circulation 2- SBP +/= 20 points of pre-anesthetic level Circulation 2- SBP +/= 20 points of pre-anesthetic level Consciousness 2- Awake and alert oriented x 3 Consciousness 2- Awake and alert oriented x 3 O2 Saturation 2- Able to maintain O2 satruation of 92% on room air O2 Saturation 2- Able to maintain O2 satruation of 92% on room air Respiratory 2- Able to deep breathe and cough well Respiratory 2- Able to deep breathe and cough well Total Score 10 Total Score 10 Contrast Agent: Isovue Diagnostic Contrast: 232 ml Total Contrast: 232 ml Fluoro Dose: 425 mGy Procedure Log Time Note Enter By 12:02 PM CathStat 12:02 PM Vitals capture started with the following parameters, Patient=Adult, Interval=5 min, Initial Oljudbfh=702 mmHg, Deflation Rate=5 mmHg, Cuff placed on Right Arm 12:02 PM Pt arrived to dairy lab technician 2 at 12:02 [facility] 12:02 PM HR=91 bpm, MOFB=334/70 mmhg, SpO2=98.0 %, Resp=11 B/min, Comment=NSR 12:02 PM Physician arrived 12: [facility] 12:02 PM ASA Class CLASS II- Mild systemic disease (i.e. well-controlled diabetes, hypertension, asthma, cigarette smoking) [facility] 12:[facility] PM Jose and luca completed [facility] 12:02 PM Sign in performed according to hospital policy. [facility] 12:02 PM Procedure start 12:02 [facility] 12:03 PM Recorded ECG: HR=85 Condition=Condition 1 12:03 PM Maria M Treviño RN Position: Monitor Time in: 12:03 [facility] 12:03 PM Yuridia Zhao RN Position: [employer] Time in: 12:03 [facility] 12:03 PM Dipika Prather RT (R) Position: Scrub Time in: 12:03 [facility] 12:04 PM Patient charges- Angio tray pack, Navilyst 3mm J, Pulse Oximetry and ACIST tubing and transducer [facility] 12:05 PM Case Delayed No [facility] 12:06 PM Hair removed from procedure site in procedure lab using clippers. Bilateral groin prepped with Chloraprep by Yuridia Zhao RN, then patient was draped. Skin intact. [facility] 12:06 PM Time: 12:06 Oxygen on at 2 L/min per nasal cannula [facility] PM Time: 12: Versed 2 mg Intravenous Given by Yuridia Zhao RN 12: PM Time: 12:06 Fentanyl 50 mcg Intravenous Given by Yuridia Zhao RN 12: PM Time: 12:06 Patient comfortable and pain free: Yes [facility] 12: PM Time: 12:LOC: 5 = Fully awake and oriented or at pre-proc level [facility] 12:06 PM Clinical Presentation: Non-STEMI [facility] 12:07 PM HR=90 bpm, IAIV=687/72 mmhg, YcA7=010.0 %, Resp=9 B/min, Comment=NSR 12:12 PM Pressure channel 1 zeroed. 12:12 PM HR=89 bpm, GGSF=089/68 mmhg, SpO2=92.0 %, Resp=19 B/min, Comment=NSR 12:13 PM Time out performed according to hospital policy [facility] 12:15 PM Time: :15 17 ml Lidocaine 2% to right groin Subcutaneous Given by Talisha Baker MD, [facility] 12:15 PM Access obtained by percutaneous puncture. 5Fr 10cm Terumo [place] sheath placed in right Femoral artery. [id number] [facility] 12:16 PM 5Fr FL 4 catheter inserted over the wire [facility] 12:16 PM 0.035 145cm Navilyst 3mmJ wire [id number] [facility] 12:16 PM LCA angiography performed in multiple views. [facility] 12:16 PM Recorded Pressure: Ao, HR=94, Condition=Condition 1 (Aorta) Ao 94/73/82 12:17 PM HR=91 bpm, NIBP=98/56 mmhg, SpO2=93.0 %, Resp=15 B/min, Comment=NSR 12:19 PM Catheter removed [facility] 12:19 PM 5Fr FL3.5 catheter inserted over the wire [id number] [facility] 12: PM Time: 12:LOC: 4 = Oriented but drowsy [facility] 12: PM Time: 12:06 Patient comfortable and pain free: Yes [facility] 12: PM LCA angiography performed in multiple views. [facility] 12:21 PM Recorded Pressure: Ao, HR=90, Condition=Condition 1 (Aorta) Ao 94/74/84 12:22 PM HR=93 bpm, QBUM=692/60 mmhg, SpO2=93.0 %, Resp=15 B/min, Comment=NSR 12:23 PM [facility]ter [facility] 12:23 PM 5Fr FR 4 catheter inserted over the wire [facility] 12:23 PM RCA angiography performed in multiple views. [facility] 12:24 PM Recorded Pressure: Ao, HR=93, Condition=Condition 1 (Aorta) Ao 96/79/88 12:24 PM Catheter removed [facility] 12:24 PM 5Fr Pigtail catheter inserted over the wire [facility] 12:24 PM Catheter selectively placed in left ventricle [facility] 12:25 PM Bolus angiogram of left Ventricle complete: 8 ml/sec for a total of 24 mls [facility] 12:25 PM Pressure channel 1 zero failed. 12:25 PM Pressure channel 1 zeroed. 12:26 PM Recorded Pressure: LV, HR=93, Condition=Condition 1 (Left Ventricle) LV 80/5/7 12:26 PM Recorded Pressure: LV, Ao, HR=95, Condition=Condition 1 (Left Ventricle) LV 81/14/23, (Aorta) Ao 88/64/77 12:26 PM [facility]atheter [facility] 12:27 PM HR=90 bpm, ESTS=811/65 mmhg, SpO2=92.0 %, Resp=15 B/min, Comment=NSR 12:29 PM Coronary Dominance: right [facility] 12:30 PM Spoke with bed management regarding needs for a bed on 2N. No beds available at this time. Will move patient and clean room for 2N bed. [facility] 12:31 PM PCI Status Urgent [facility] 12:31 PM PCI Indication: PCI for high risk Non-STEMI or unstable angina [facility] 12:32 PM PCI lesion in Mid Circumflex. Pre Stenosis: 95 Pre ANN Flow: 3: Complete and Brisk Flow/Perfusion [facility] 12:32 PM PCI lesion in Distal Circumflex. Pre Stenosis: 95 Pre ANN Flow: 3: Complete and Brisk Flow/Perfusion [facility] 12:32 PM HR=83 bpm, CZVZ=748/69 mmhg, SpO2=94.0 %, Resp=13 B/min, Comment=NSR 12:32 PM Sheath exchanged for a 6 Fr 11 cm Cordis Amparo sheath [id number] [facility] 12:33 PM Time: 12:33 Angiomax 0.75mg/kg bolus: 13 ml Intravenous Given by Yuridia Zhao RN Good pump [facility] 12:33 PM Time: 12:33 Angiomax 1.75mg/kg/hr: 30 ml/hr Intravenous Given by Yuridia Zhao RN Good pump [facility] 12:33 PM 6Fr XB LAD 3.5 Culver Bright-Tip guide catheter was used to cannulate the PCI vessel successfully. reused? No [facility] 12:34 PM Recorded Pressure: Ao, HR=85, Condition=Condition 1 (Aorta) Ao 102/54/75 12:34 PM .014 Prowater 180cm guide wire across target lesion- successful. reused? No [facility] 12:36 PM Inflation device was opened. [facility] 12:36 PM 2.0 mm x 12 mm Emerge Monorail balloon across target lesion- successful. reused? No [facility] 12:36 PM Time: 12:21 Patient comfortable and pain free: Yes [facility] 12:36 PM Time: 12:21LOC: 4 = Oriented but drowsy [facility] 12:37 PM Balloon inflated @ 8 slick for 20 seconds [facility] 12:37 PM HR=85 bpm, BLZO=213/72 mmhg, SpO2=95.0 %, Resp=16 B/min, Comment=NSR 12:37 PM Balloon inflated @ 8 slick for 20 seconds [facility] 12:38 PM Recorded Pressure: Ao, HR=87, Condition=Condition 1 (Aorta) Ao 99/72/85 12:40 PM Balloon catheter removed intact. [facility] 12:41 PM 2.25mm x 24mm Synergy drug-eluting stent across target lesion- successful Lot #[id number] [facility] 12:42 PM Recorded Pressure: Ao, HR=85, Condition=Condition 1 (Aorta) Ao 108/70/86 12:42 PM HR=80 bpm, GIVN=708/83 mmhg, SpO2=97.0 %, Resp=15 B/min, Comment=NSR 12:44 PM Stent deployed @ 12 slick for 30 seconds [facility] 12:44 PM Stent balloon reinflated @ 18 slick for 15 seconds [facility] 12:45 PM Stent delivery system removed intact. [facility] 12:45 PM Recorded Pressure: Ao, HR=82, Condition=Condition 1 (Aorta) Ao 143/76/104 12:46 PM Time: 12:46 Nitroglycerin 200 mcg Intracoronary Given by Talisha Baker MD, [facility] 12:47 PM Guide wire removed intact. [facility] 12:47 PM HR=87 bpm, CTJP=095/84 mmhg, SpO2=98.0 %, Resp=9 B/min, Comment=NSR 12:47 PM Guide catheter removed intact. [facility] 12:48 PM Time: 12:48 Plavix 600 mg Orally Given by Yuridia Zhao RN [facility] 12:49 PM Bolus angiogram of right Femoral complete: 4 ml/sec for a total of 7 mls [facility] 12:51 PM Procedure completed at 12:51 [facility] 12:51 PM Did you address ANN flow and Dominance? Yes [facility] 12:51 PM Time: 12:36LOC: 5 = Fully awake and oriented or at pre-proc level [facility] 12:51 PM Time: 12:36 Patient comfortable and pain free: Yes [facility] 12:52 PM Sign out completed: Radiation Dose 424.87 mGy Fluoro Time: 8.8 Isovue 370 - 200ml contrast 232 ml given by Talisha Baker MD, [facility]. Complications: NoneCardiac Rehab Consult needed: YesConfirmed administered medications: Yes [facility] 12:52 PM Isovue 370 - 200ml,2 Bottle(s) used. [facility] 12:52 PM Sheath left in place to be pulled on floor/holding area [facility] 12:52 PM Estimated Blood Loss: less than 20cc [facility] 12:53 PM Post ECG NSR [facility] 12:53 PM Post Blood Pressure 140/84 [facility] 12:53 PM 12:53 Post Pulses Bilateral DP & PT 2+ [facility] 12:53 PM Information taught Cardiac Cath and PCI [facility] 12:53 PM HR=77 bpm, ZSCG=789/87 mmhg, SpO2=97.0 %, Resp=10 B/min, Comment=NSR 12:53 PM Education needs Procedure, Plan of Care, and Safe & Effective Use of Medications [facility] 12:53 PM Learning barriers :None [facility] 12:53 PM Education Methods Verbal [facility] 12:53 PM Education evaluation Able to repeat information [facility] 12:53 PM Site status No bleeding/hematoma - Rt Groin as reported by Dipika Prather RT (R) at 12:53 [facility] 12:53 PM Opsite applied [facility] 01:02 PM Lesion found in Proximal RCA. Pre Stenosis: 99 [facility] 01:02 PM Lesion found in Mid RCA. Pre Stenosis: 60 [facility] 01:02 PM Lesion found in Proximal LAD. Pre Stenosis: 30 [facility] 01:02 PM Lesion found in 2nd Diagonal. Pre Stenosis: 30 [facility] 01:02 PM Lesion found in Proximal Circumflex. Pre Stenosis: 30 [facility] 01:03 PM Proximal Left Anterior Descending Coronary Artery with 30% stenosis. [facility] 01:03 PM Mid/Distal Left Anterior Descending Coronary Artery and diagonal branches with 30% stenosis. [facility] 01:03 PM Circumflex, Obtuse Marginal, Left Posterior Descending, and Left Posterolateral Coronary Arteries with 95 % stenosis. [facility] 01:04 PM Right Coronary, Right Posterior Descending Arteries with Right Posterolateral and Acute Marginal branches with 99 % stenosis. [facility] 01:05 PM Plavix, Effient or Brilinta given Yes [facility] 01:05 PM Delay to floor Bed availability [facility] 01:05 PM Patient out of room: 13:05 Taken to holding area while waiting for bed on 2N [facility] 01:05 PM Family placed in holding area. [facility] 01:05 PM Complications: None [facility] 01:05 PM Fluoro Time: 8.8 [facility] 01:05 PM Isovue 370 - 200ml contrast 232 ml given by Talisha Baker MD, [facility]. [facility] 01:05 PM Radiation Dose 424.87 mGy [facility] 01:24 PM Report given to Libia WEEKS. Waiting for report from 2A so patient can be moved [facility] 01:38 PM Time: 13:38 Angiomax 1.75mg/kg/hr: D/C'd Given by Yuridia Zhao RN Good pump [facility] 02:00 PM Called 2N spoke with Moira. Bed still not available. [facility] 02:02 PM Spoke with Pinky on 2A. Bed is available. [facility] 02:15 PM Called housekeeping for stat clean in 2N5. [facility] 02:36 PM Patient out of room: 14:36 taken to 2N5 cande Complications Complication None Hemodynamics Pressures Site Systolic/A Wave Diastolic/V Wave Mean AO 94 73 82 AO 94 74 84 AO 96 79 88 LV 80 5 7 LV 81 14 23 AO 88 64 77 AO 102 54 75 AO 99 72 85 AO 108 70 86 AO 143 76 104 Post Procedure Information Blood Pressure: 140/84 mmHg Rhythm: NSR Post procedural instructions were given Site Checks Time Location Status Staff Sheath In? Note 12:53 PM Rt Groin No bleeding/hematoma Dipika Prather RT (R) Yes 01:00 PM Rt Groin No bleeding/ No Hematoma Maria M Treviño RN Yes 01:15 PM Rt Groin No bleeding/ No Hematoma Maria M Treviño RN Yes 01:30 PM Rt Groin No bleeding/ No Hematoma Maria M Treviño RN Yes 01:45 PM Rt Groin No bleeding/ No Hematoma Maria M Treviño RN Yes 02:00 PM Rt Groin No bleeding/ No Hematoma Maria M Treviño RN Yes 02:15 PM Rt Groin No bleeding/ No Hematoma Maria M Treviño RN Yes 02:30 PM Rt Groin No bleeding/ No Hematoma Maria M Treviño RN Yes Pulses Time Site Pre-Procedure Post-Procedure Note 01/18/2018 12:04:00 PM Bilateral DP & PT 2+ 01/18/2018 12:04:00 PM Bilateral radial 2+ 12:53:00 PM Bilateral DP & PT 2+ 01/18/2018 1:05:00 PM Bilateral DP & PT 2+ 01/18/2018 1:20:00 PM Bilateral DP & PT 2+ 01/18/2018 1:30:00 PM Bilateral DP & PT 2+ 01/18/2018 1:45:00 PM Bilateral DP & PT 2+ 01/18/2018 2:00:00 PM Bilateral DP & PT 2+ 01/18/2018 2:15:00 PM Bilateral DP & PT 2+ 01/18/2018 2:30:00 PM Bilateral DP & PT 2+ Updated by Maria M Treviño RN on 01/18/2018 2:46:18 PM electronically signed on 01/18/2018 2:46:42 PM with status of Final
[2018-01-18] MEDS ORDERED: *HR* Atropine Sulfate 1 MG/10 ML SYRINGE ONE (15:43)
[2018-01-19 04:55] LABS: Hematocrit 40.6 % (35.3-44.9); Hemoglobin 13.5 g/dL (11.5-15.4)
[2018-01-19 05:16] LABS: BUN/Creatinine Ratio 15 (6-26); Blood Urea Nitrogen 14 mg/dL (6-20); eGFR For African Americans > 60 (> 60); eGFR For Non-African Americans > 60 (> 60)
[2018-01-19 06:55] VITALS: BP 118/71
[2018-01-19] MEDS: Metoprolol XL (24 HR) Succ 25 MG TAB.ER.24H PO SCH (07:50)
[2018-01-19] MEDS: Aspirin Enteric Coated 81 MG Tablet PO SCH (07:50)
[2018-01-19] MEDS: Nicotine 14 MG PATCH.TD24 TD SCH (07:50)
[2018-01-19] MEDS: Isosorbide MONOnitrate (24 HR) 30 MG TAB.ER.24H PO SCH (07:50)
--- NOTE | 2018-01-19 08:53 | Cardiology Progress Note ---
Date of Encounter: 01/19/18 Time of Encounter: 08:30 Assessment and Plan (1) NSTEMI (non-ST elevated myocardial infarction) Current Visit: Yes Status: Acute Pt underwent cardiac catheterization and PCI of mid/distal Cx yesterday with good angiographic results. Has residual RCA disease- would medically treat at this time- would be complex, high risk PCI. No recurrent angina overnight. Continue DAPT. Emphasized importance of compliance with DAPT and other medications multiple times yesterday with patient and . Can be discharged from cardiology standpoint. Will f/u as outpatient. (2) CAD (coronary artery disease) Current Visit: Yes Status: Chronic As above. ASA, Plavix, Statin, BB, Imdur. Qualifiers: Coronary Disease-Associated Artery/Lesion type: [place] artery [place] vs. transplanted heart: [place]q heart Associated angina: with unstable angina Qualified Code(s): I25.110 - Atherosclerotic heart disease of [place]q coronary artery with unstable angina pectoris (3) S/P drug eluting coronary stent placement Current Visit: Yes Status: Acute (4) HTN (hypertension) Current Visit: Yes Status: Chronic Controlled. Continue current meds. Qualifiers: Hypertension type: essential hypertension Qualified Code(s): I10 - Essential (primary) hypertension (5) HLD (hyperlipidemia) Current Visit: Yes Status: Acute Statin increased to 80mg daily atorvastatin. Qualifiers: Hyperlipidemia type: unspecified Qualified Code(s): E78.5 - Hyperlipidemia , unspecified (6) Tobacco dependence Current Visit: Yes Status: Acute Smoking cessation counseling given. Discussion w patient/family: The assessment and plan as outlined above was discussed with the patient and/or family members who expressed understanding and agreement. All questions were answered. Thank you for involving us in the care of your patient. Please call with any questions. Subjective Principal diagnosis: nonSTEMI Interval history: Pt did well overnight. No recurrent angina. No pain/bleeding at cathterization site. Had LHC with PCI of mid/distal Cx yesterday with good angiographic results. Objective Vital Signs, Last 4 Hours Temp Pulse Resp BP Pulse Ox 01/19/18 08:01 91 20 94 01/19/18 07:57 91 01/19/18 07:56 91 20 93 01/19/18 07:55 90 01/19/18 06:53 98.3 F 86 19 118/71 95 General: Conversant, No Apparent Distress HEENT: Atraumatic, Normocephaly, Mucus Membranes Moist Neck: No JVD, Normal carotid pulses Cardiac: Reg Rate and Rhythm, Normal S1 and S2, No Murmur Lungs: Normal Breath Sounds, No Wheeze, Rales, Rhonchi Neuro: Alert and responsive, No focal deficits noted Abdomen: Soft, Non-Tender Skin: No rashes noted on visualized skin Musculoskeletal: No Chest Wall Tenderness Extremities: No Clubbing, No Cyanosis, No Edema, Normal Pulses, Other (R groin cath site- no bleeding, no hematoma, soft, nontender) Results 01/19/18 04:37 01/19/18 04:37 Lab Results 01/18/18 01/19/18 01/19/18 17:40 04:37 04:37 Hgb 13.5 Hct 40.6 Plt Count 278 APTT 44.6 H BUN 14 Creatinine 0.92 Troponin I 01/19/18 04:37 Hgb Hct Plt Count APTT BUN Creatinine Troponin I 0.08 H* Consult Discharge Plan - Plan Referrals: Evangelina Mehta MD [Primary Care Provider] -
--- NOTE | 2018-01-19 09:57 | Discharge Summary ---
- NOTES TO OUTPATIENT PROVIDER Notes to Outpatient Provider: Pt underwent cardiac catheterization and PCI of mid/distal Cx. Has residual RCA disease - treating medically at this time as it would be complex, high risk PCI. Orders not resulted at time of discharge: Pending orders 01/18/18 13:11 ECG 12 lead ECG [ECG] Stat 01/19/18 06:00 ECG 12 lead ECG [ECG] AM 0600 Date of Encounter: 01/19/18 Time of Encounter: 09:52 - Discharge Diagnosis (1) NSTEMI (non-ST elevated myocardial infarction) Priority: Primary Status: Acute (2) Diabetes mellitus Priority: Secondary Status: Chronic Qualifiers: Diabetes mellitus type: type 2 Diabetes mellitus complication status: without complication Diabetes mellitus extermination inspector insulin use: without fdc use Qualified Code(s): E11.9 - Type 2 diabetes mellitus without complications (3) CAD (coronary artery disease) Priority: Secondary Status: Chronic Qualifiers: Coronary Disease-Associated Artery/Lesion type: [place] artery [place] vs. transplanted heart: [place] heart Associated angina: with unstable angina Qualified Code(s): I25.110 - Atherosclerotic heart disease of [place] coronary artery with unstable angina pectoris (4) HTN (hypertension) Priority: Secondary Status: Chronic Qualifiers: Hypertension type: essential hypertension Qualified Code(s): I10 - Essential (primary) hypertension (5) Tobacco dependence Priority: Secondary Status: Acute Hospital course: Ms. Youssef is a 47 year old female with history of coronary artery disease and prior coronary stents presented to the ER with complaints of chest pain. She had elevation in her troponin and was diagnosed with non-ST elevation [place]. Cardiology was consulted. Patient underwent left heart catheterization yesterday and was found to have double vessel coronary artery disease. Previously stented OM1 was patent. Patient underwent PTCA with drug-eluting stent placement in the mid to distal left circumflex artery. She also has residual RCA disease which will be treated medically. At this time cardiology has cleared her for discharge. She is advised to stay on general antiplatelet therapy compliantly and to follow up with cardiology after discharge. In addition, she was also diagnosed with diabetes mellitus. Her A1c is 6.5%. She is being placed on metformin And diabetic diet. Discharge discussed with: patient - Time Spent with Patient Total time spent providing and/or coordinating discharge services: Greater than 30 minutes (35 min) - Discharge Medications Prescriptions: Atorvastatin [Lipitor] 80 mg PO HS #60 tablet Clopidogrel [Plavix] 75 mg PO DAILY #30 tablet Isosorbide MONOnitrate (24 HR) [Imdur] 30 mg PO DAILY #30 tab.er.24h Metformin HCl [Metformin HCl ER] 500 mg PO DAILY #30 [id number] Metoprolol XL (24 HR) Succ [Toprol Xl] 25 mg PO DAILY #30 tab.er.24h Home Medications: Levothyroxine [Synthroid] 75 mcg PO 0630 10/12/17 [History] Lisinopril [Zestril] 10 mg PO DAILY 10/12/17 [History] Aspirin [Lo-Dose Aspirin EC] 81 mg PO DAILY 01/17/18 [History] Atorvastatin [Lipitor] 80 mg PO HS #60 tablet 01/19/18 [Rx] Clopidogrel [Plavix] 75 mg PO DAILY #30 tablet 01/19/18 [Rx] Isosorbide MONOnitrate (24 HR) [Imdur] 30 mg PO DAILY #30 tab.er.24h 01/19/18 [ Rx] Metformin HCl [Metformin HCl ER] 500 mg PO DAILY #30 [id number] 01/19/18 [Rx] Metoprolol XL (24 HR) Succ [Toprol Xl] 25 mg PO DAILY #30 tab.er.24h 01/19/18 [ Rx] Allergies/Adverse Reactions: 3 Allergy/AdvReac Type Severity Reaction Status Date / Time codeine AdvReac Vomiting Verified 01/17/18 08:16 anesthesia AdvReac Drowsy Uncoded 01/17/18 08:16 Date of admission: 01/18/18 10:42 Primary care physician: Evangelina Mehta Consults: 01/18/18 13:11 Consult to Cardiac Rehabilitation-Phase1 [CONS] Routine Comment: Reason for Consult: post op PCI Call Completed: Yes Discharging clinician: Moose Pennington Anticipated date of discharge: 01/19/18 - Constitutional Vitals: Temp Pulse Resp BP Pulse Ox 98.3 F 91 20 118/71 94 01/19/18 06:53 01/19/18 08:01 01/19/18 08:01 01/19/18 06:53 01/19/18 08:01 General appearance: Present: cooperative, A&O X 3, answers questions appropriately - Neck Neck exam general surgery: Present: supple, trachea midline. Absent: lymphadenopathy - Respiratory Respiratory exam: Present: CTAB. Absent: accessory muscle use, rales, rhonchi, wheezes - Cardiovascular Cardiovascular exam: Present: RRR, +S1, +S2. Absent: diastolic murmur, gallop, rubs, systolic murmur - GI/Abdominal GI/Abdominal exam: Present: normal bowel sounds, soft, no peritoneal signs. Absent: distended, tenderness - Extremities Exam Extremities exam: Present: warm, radial pulses palpable and symmetrical. Absent : calf tenderness, cyanotic, pedal edema - Patient Status Disposition: Home, Self-Care Condition: Good Functional capacity at discharge: independent ambulation Overall status at discharge: patient is progressing back to baseline - Discharge Instructions Instructions: Diabetes Mellitus Type 2 in Adults (DC) Follow Up With: Evangelina Mehta MD [Primary Care Provider] - (in 1-2 weeks) Talisha Baker MD [Partnered Physician] - (in 1-2 weeks) - Diet and Activity Activity: as per the cardiac rehab, increase activity as tolerated Diet: diabetic diet, low fat, low cholesterol, low salt diet
--- NOTE | 2018-01-21 18:21 | Electrocardiograph Report ---
[address] [address] Test Date: 2018-01-18 Pat Name: Benita Youssef Department: 110 Room: [facility] Gender: F Labeling Strategist: : 1970 Requested By: Talisha Baker Order Number: [id number] Reading MD: Aravind Baker Measurements Intervals [place] Rate: 78 P: 44 [place]: 157 QRS: -17 QRSD: 114 T: 34 QT: 385 QTc: 418 Interpretive Statements SINUS RHYTHM MODERATE INTRAVENTRICULAR CONDUCTION DELAY Electronically Signed On 01-21-2018 18:19:59 EST by Aravind Baker
== END 2018-01-19 11:51 | disposition home or self-care (01) | DRG 247 ==
LOC: EMEROO 07:38 → 2ANU 07:38 → 2NNU 01-18 14:55
PROVIDERS: ADMIT Family Medicine; ATTEND Internal Medicine

== ENCOUNTER 2018-12-01 04:12 | Inpatient (IN) ==
[2018-12-01] MEDS ORDERED: Nitroglycerin 0.4 MG TAB.SUBL SL PRN (04:24)
[2018-12-01] MEDS ORDERED: Aspirin 325 MG TABLET PO ONE (04:24)
--- NOTE | 2018-12-01 04:24 | Emergency Department Note ---
Disposition Clinical Impression: Chest pain Qualifiers: Chest pain type: unspecified Qualified Code(s): R07.9 - Chest pain, unspecified Disposition: Admitted As Inpatient Condition: Fair Time of Disposition: 06:25 Chest Pain HPI - General Chief Complaint: ED Chest Pain Stated Complaint: chest pain Time Seen by Provider: 12/01/18 04:13 Source: patient Mode of arrival: ambulatory Limitations: no limitations Vital Signs Reviewed: Yes Nursing Notes Reviewed: Yes - History of Present Illness HPI Narrative: 45 year old female history of hypertension, CAD with stents presents for evaluation of chest pain. Noted to occur approximately 2 hours prior to ED arrival. States it woke her up. Notes anterior chest pain without radiation. States it feels similar to her prior heart attacks. Patient states he took 2 nitroglycerin prior to ED arrival which did not improve the pain. Patient denies any nausea vomiting or diaphoresis. Patient states he has not been able to take her Plavix and aspirin or any of her medicines for approximately 6mo due to financial reasons. Patient denies any abdominal pain. No history of PE or DVTs. Patient states her last stent was last year. - Related Data Home Medications Medication Instructions Recorded Confirmed RX: Aspirin [Lo-Dose Aspirin EC] 81 mg PO DAILY 01/17/18 12/01/18 Allergies Allergy/AdvReac Type Severity Reaction Status Date / Time codeine AdvReac Vomiting Verified 12/01/18 07:44 anesthesia AdvReac Drowsy Uncoded 12/01/18 07:44 All systems ED: reviewed and negative except as stated. Constitutional: Denies: fever Cardiovascular: Reports: chest pain Respiratory: Denies: cough, dyspnea, sputum production Gastrointestinal: Denies: abdominal pain, nausea, vomiting Chest Pain PMH - Past Medical History Medical history: Reports: non-contributory Surgical history: Reports: angioplasty/stent Psychiatric history: Reports: no psych history - Social History Smoking Status: Never smoker Alcohol use: Reports: none Drug use: Reports: none Physical Exam - General Limitations: no limitations General appearance: alert, in no apparent distress - Head Head exam: atraumatic, normocephalic, normal inspection - Eye Eye exam: Present: normal appearance - ENT ENT exam: normal exam, mucous membranes moist - Neck Neck exam: Present: normal inspection - Chest Chest inspection: Present: normal inspection, symmetric chest wall rise - Respiratory Respiratory exam: Present: normal lung sounds bilaterally. Absent: respiratory distress - Cardiovascular Cardiovascular exam: Present: regular rate, normal rhythm. Absent: systolic murmur - Abdominal Exam Abdominal exam: Present: soft, Non-Tender - Extremities Exam Extremities exam: Present: normal inspection. Absent: pedal edema - Expanded Lower Extremity Exam Neurovascular/Tendon exam: Present: normal capillary refill - Back Exam Back exam: Present: normal inspection - Neurological Exam Neurological exam: Present: alert, oriented X3, CN II-XII intact - Skin Skin exam: Present: warm, dry, intact, normal color Course Course Narrative: Patient seen and examined. Known coronary artery disease. Patient history is concerning for unstable angina. We will pursue cardiopulmonary evaluation likely admission for chest pain. - Reevaluation(s) Reevaluation #1: Patient seen and examined. Patient's resting comfortably. States that her pain has improved. Given the patient's extensive cardiac history as well as chest pain with similar presentation with [place] in the past patient will be admitted to the hospital service for continued cardiopulmonary evaluation. Time: 05:05 Vital Signs Temperature 98.8 F 12/01/18 04:16 Pulse Rate 86 12/01/18 04:16 Respiratory Rate 18 12/01/18 04:16 Blood Pressure 150/84 12/01/18 04:16 O2 Sat by Pulse Oximetry 98 12/01/18 04:16 Temperature 98.8 F 12/01/18 04:16 Pulse Rate 102 12/01/18 05:23 Respiratory Rate 18 12/01/18 05:23 Blood Pressure 127/79 12/01/18 05:23 O2 Sat by Pulse Oximetry 97 12/01/18 05:23 Oxygen Delivery Oxygen Delivery Room Air Chest Pain - [facility] Narrative Medical decision making narrative: Patient presented for concerns of chest pain. Does have history of coronary artery disease. Patient's chest pain resolved in the ED. Received aspirin. Patient's been off her Plavix and aspirin for proximally 6 months due to financial reasons. With this concern and the patient's presentation the patient will be admitted to the hospital service for continued cardiopulmonary evaluation. No concerns for PE or DVT. - Medical Records Medical records reviewed: Yes I reviewed the patient's medical records. [facility] 12/2017 Impressions: Double vessel coronary artery disease. The left ventricle is normal and has normal contractility EF 65% Previously stented OM1 patent. Patient had successful PTCA/Drug-Eluting Stent placement in the mid-distal Circ. - Lab Data Lab results reviewed: Yes I reviewed the patient's lab results. Result diagrams: 12/02/18 05:14 12/01/18 04:24 Lab Results 12/01/18 12/01/18 12/01/18 Range/Units 04:24 04:24 04:24 WBC 14.1 H (4.3-11.1) K/mcL RBC 4.82 (3.82-4.97) M/mcL Hgb 14.1 (11.5-15.4) g/dL Hct 42.2 (35.3-44.9) % MCV 87.6 (83.0-100.0) fL MCH 29.3 (28.0-33.3) pg MCHC 33.4 (31.6-35.5) g/dL RDW 13.3 (11.5-14.5) % Plt Count 302 (140-400) K/mcL MPV 10.5 (9.4-12.4) fL Immature Gran % 0.5 (0-4) % Seg Neutrophils % 50.6 % Lymphocytes % 38.9 % Monocytes % 6.1 % Eosinophils % 3.3 % Basophils % 0.6 % Neutrophils # 7.1 (1.6-8.9) K/mcL Lymphocytes # 5.5 H (0.6-4.6) K/mcL Monocytes # 0.9 (0.0-1.3) K/mcL Eosinophils # 0.5 (0.0-0.6) K/mcL Basophils # 0.1 (0.0-0.2) K/mcL PT 10.2 (9.4-12.1) Seconds INR 0.9 APTT 34.0 (26.0-36.0) Seconds Sodium 138 (136-145) mEq/L Potassium 4.0 (3.5-5.1) mEq/L Chloride 106 (98-107) mEq/L Carbon Dioxide 23 (23-29) mEq/L BUN 11 (6-20) mg/dL Creatinine 0.88 (0.60-1.20) mg/dL Est GFR ( Amer) > 60 (> 60) Est GFR (Non-Af Amer) > 60 (> 60) BUN/Creatinine Ratio 13 (6-26) Glucose 166 H (70-105) mg/dL Calculated Osmolality 289 (280-300) Calcium 9.1 (8.6-10.3) mg/dL Troponin I 0.03 (< 0.04) ng/mL - Radiology Data Radiology results reviewed: Yes I reviewed the patient's radiology results. Chest X-Ray 12/01/18 04:17 IMPRESSION: Diffuse airway inflammation may be seen with asthma, bronchitis or smoking. No consolidative airspace disease. D/ / Magdy Denis / Magdy Denis Interpreting Provider: Magdy Denis - EKG Data EKG attestation: Yes I reviewed and interpreted this EKG. EKG shows normal: sinus rhythm Rate: normal Rhythm: NSR [place]/QRS: right axis deviation T wave inversions noted in: v1 When compared to previous EKG there are: changes noted Interpretation: no acute changes, nonspecific ST-T wave changes Heart Score - Score History: Highly Suspicious EKG: Non Specific repolarisation Disturbance Age: 45-65 Risk Factors: Equal/Greater than 3 risk factor or history of atherosclerotic disease Troponin: Less than normal limit HEART Score Total: 6 S.B.A.R. - S.B.A.R. Situation: Demographics Background: Presenting Complaint Assessment: Vital Signs, Course and respsone to treatment, Patient/Family Expectation Recommendation: Barrier(s) to disposition, Recommendation based on pending studi es, treatments, or consults S.B.A.R. Report Given to: Dr. Sher S.B.AMando Repor Time: 06:25 Attestation Statement - Attestation Attestation: Resident Attestation: I examined this patient and my medical decision making was reviewed with the Resident Physician. I agree with the documented findings, disposition and treatment plan as described except to the extent set forth below. We independently had [id number] contact with the patient. Patient history of CAD here for evaluation of chest pain that started to our prior to arrival. Patient will undergo further evaluation for chest pain No acute distress, regular rate and rhythm, clear to auscultation bilaterally, no significant peripheral edema. Patient's workup unremarkable at this time. Will be admitted for further inv estigation.
[2018-12-01 04:34] LABS: Basophils # 0.1 K/mcL (0.0-0.2); Basophils % 0.6 %; Eosinophils # 0.5 K/mcL (0.0-0.6); Eosinophils % 3.3 %; Hematocrit 42.2 % (35.3-44.9); Hemoglobin 14.1 g/dL (11.5-15.4); Immature Granulocytes % 0.5 % (0-4); Lymphocytes # 5.5 K/mcL (0.6-4.6); Lymphocytes % 38.9 %; Mean Corpuscular HGB Conc 33.4 g/dL (31.6-35.5); Mean Corpuscular Hemoglobin 29.3 pg (28.0-33.3); Mean Corpuscular Volume 87.6 fL (83.0-100.0); Mean Platelet Volume 10.5 fL (9.4-12.4); Monocytes # 0.9 K/mcL (0.0-1.3); Monocytes % 6.1 %; Neutrophils # 7.1 K/mcL (1.6-8.9); Platelet Count 302 K/mcL (140-400); Red Blood Count 4.82 M/mcL (3.82-4.97); Red Cell Distribution Width 13.3 % (11.5-14.5); Segmented Neutrophils % 50.6 %
[2018-12-01 04:41] LABS: INR 0.9; Prothrombin Time 10.2 Seconds (9.4-12.1)
[2018-12-01 04:57] LABS: BUN/Creatinine Ratio 13 (6-26); Blood Urea Nitrogen 11 mg/dL (6-20); Calcium 9.1 mg/dL (8.6-10.3); Carbon Dioxide 23 mEq/L (23-29); Chloride 106 mEq/L (98-107); Glucose 166 mg/dL (70-105); Osmolality,Calculated 289 (280-300); Sodium 138 mEq/L (136-145); eGFR For Non-African Americans > 60 (> 60)
[2018-12-01 04:59] LABS: Troponin I 0.03 ng/mL (< 0.04)
[2018-12-01] MEDS ORDERED: Acetaminophen 325 MG TABLET PO PRN (08:56)
[2018-12-01] MEDS ORDERED: Naloxone 0.4 MG/ML INJ IVP PRN (08:56)
--- NOTE | 2018-12-01 09:10 | Internal Med History&Physical ---
Date of Encounter: 12/01/18 Time of Encounter: 09:10 Internal Medicine - H&P: HPI Chief complaint: CP Admitted From: Emergency Dept Plans for Post Hospital Care: Home History of present illness: Ms. Youssef is a 48 year old female past medical history of hypertension CAD with stents diabetes retroperitoneal fibrosis hyperlipidemia presented to [facility] ED after experiencing anterior chest pain without radiation that woke her from sleep. She described the pain is similar to her prior heart attacks. She did take 2 nitroglycerin prior to ED arrival which did not improve her pain. She denied any associated symptoms of nausea vomiting or diaphoresis. The patient did have LHC approximately one year ago previous stented OM1 patent and drug- eluting stent placed and mid distal circumflex. She was placed on dual antipl atelet therapy however according to the patient she has not taken it for 6 months due to financial difficulties. EKG with sinus rhythm with no ST-T wave abnormality initial troponin negative she was given an aspirin and has been admitted for further workup and evaluation. Currently patient complains of 4 out of 10 midsternal chest pain which is reproducible with palpation. She does have tenderness across chest upon palpation as well as when she moves her left arm. Patient has been admitted for further work up and evaluation of chest pain I did discuss treatment plan with the patient who verbalized understanding currently she is hemodynamically stable at this time. Past Med Surg Social Fam HX - Past Medical History Medical history: coronary artery disease, hypertension Additional medical history: [place] disease Psychiatric history: no psych history - Past Surgical History Surgical History: angioplasty/stent, appendectomy, carotid endarterectomy, hysterectomy Additional surgical history: multiple urinary stent placement. wisdom teeth removal - Social History Smoking Status: Current every day smoker Packs per day: 1 Smokeless Tobacco Status: No Alcohol use: none Drug use: none - Family History Father Living Status: Hx Family Cardiac Disorders: Yes Mother Living Status: Hx Family Cardiac Disorders: Yes Hx Family Respiratory Disorders: Yes Internal Medicine - H&P: Meds Aspirin [Lo-Dose Aspirin EC] 81 mg PO DAILY 01/17/18 [History] Allergy/AdvReac Type Severity Reaction Status Date / Time codeine AdvReac Vomiting Verified 12/01/18 07:44 anesthesia AdvReac Drowsy Uncoded 12/01/18 07:44 All Systems PM: A 10-system review of systems was performed and is negative for pertinent findings except as documented above in the HPI. - Constitutional Constitutional: no chills, no fever(s), no night sweats - EENT Eyes: no change in vision, no discharge, no pain, no photophobia Ears: no ear discharge, no ear pain, no tinnitus Nose, mouth and throat: no dysphagia, no nasal discharge, no neck pain, no sore throat - Cardiovascular Cardiovascular ROS IM: chest pain - Respiratory Respiratory: no cough, no dyspnea, no wheezing, no excessive phlegm production - Gastrointestinal Gastrointestinal: no abdominal pain, no diarrhea, no hematemesis, no hematochezia, no melena, no nausea, no vomiting - Genitourinary Genitourinary: no change in urinary stream, no dysuria, no flank pain, no hematu sona - Musculoskeletal Musculoskeletal ROS IM: no numbness, no tingling - Integumentary Integumentary IM: no rash, no unusual bruising - Neurological Neurological ROS: no confusion, no convulsions, no focal weakness, no numbness, no tingling, no tremor(s) - Hematologic/Lymphatic Hematologic/Lymphatic: no easy bruising - Constitutional Vitals: Temp Pulse Resp BP Pulse Ox 98.8 F 102 18 190/89 97 12/01/18 04:16 12/01/18 05:23 12/01/18 07:05 12/01/18 07:05 12/01/18 05:23 General appearance: Present: A&O X 3 Exam: . - Head Head exam: Present: atraumatic, normocephalic - Eye Eye exam: Present: PERRL, conjuntiva pink, sclera anicteric Pupils: Present: PERRL - Neck Neck exam general surgery: Present: supple, trachea midline. Absent: lymphadenopathy - Respiratory Respiratory exam: Present: CTAB. Absent: accessory muscle use, rales, rhonchi, wheezes - Cardiovascular Cardiovascular exam: Present: RRR, +S1, +S2. Absent: diastolic murmur, gallop, rubs, systolic murmur - GI/Abdominal GI/Abdominal exam: Present: normal bowel sounds, soft, no peritoneal signs. Ab sent: distended, tenderness - Extremities Exam Extremities exam: Present: warm, radial pulses palpable and symmetrical. Absent: calf tenderness, cyanotic, pedal edema - Neurological Exam Neurological exam: Present: CN II-XII intact, oriented X3, no focal deficits. Absent: pronater drift, facial droop, speech deficit - Skin Skin exam: Present: dry, intact Internal Med - H&P Results - Labs CBC & Chem 7: 12/01/18 04:24 12/01/18 04:24 Labs: Short CBC 12/01/18 Range/Units 04:24 WBC 14.1 H (4.3-11.1) K/mcL Hgb 14.1 (11.5-15.4) g/dL Hct 42.2 (35.3-44.9) % Plt Count 302 (140-400) K/mcL Neutrophils # 7.1 (1.6-8.9) K/mcL BMP 12/01/18 04:24 Sodium 138 Potassium 4.0 Chloride 106 Carbon Dioxide 23 BUN 11 Creatinine 0.88 Glucose 166 H Calcium 9.1 Cardiac Enzymes 12/01/18 Range/Units 04:24 Troponin I 0.03 (< 0.04) ng/mL - Impressions ITS Impressions Chest X-Ray 12/01/18 04:17 IMPRESSION: Diffuse airway inflammation may be seen with asthma, bronchitis or smoking. No consolidative airspace disease. D/ / Magdy Denis / Magdy Denis Interpreting Provider: Magdy Denis - Diagnostic Studies Other Images Additional comments: Chest X-Ray 12/01/18 04:17 IMPRESSION: Diffuse airway inflammation may be seen with asthma, bronchitis or smoking. No consolidative airspace disease. D/ / Magdy Denis / Magdy Denis Interpreting Provider: Magdy Denis - Assessment and plan (1) Chest pain Current Visit: Yes Status: Acute Assessment and plan: Erin presented with chest pain which was nonradiating and is reproducible upon palpation of chest. EKG with no ST-T wave abnormalities Initial troponin has been negative we will continue to trend. Second troponin is 0.04 -I did have a curbside consult with cardiology FAMILY DENTIST Praveena Wilson we will continue to trend troponin and obtain TTE-if any abnormalities we will consult cardiology. Suspect possible musculoskeletal I will continue to observe-will hold off on stress test at this time may be performed as outpatient Resume aspirin and Plavix educate patient on importance of dual antiplatelet therapy and will have social media marketing manager consulted concerning financial hardship Beta mireille statin Will check lipid profile in a.m. Nitroglycerin as needed for chest pain Cardiac echo pending Qualifiers: Chest pain type: unspecified Qualified Code(s): R07.9 - Chest pain, unspecified (2) HLD (hyperlipidemia) Current Visit: No Status: Acute Assessment and plan: Atorvastatin 40 mg We will check lipid profile in a.m. Qualifiers: Hyperlipidemia type: unspecified Qualified Code(s): E78.5 - Hyperlipidemia, unspecified (3) Tobacco dependence Current Visit: No Status: Acute Assessment and plan: Encouraged patient to stop smoking (4) Diabetes mellitus Current Visit: No Status: Chronic Assessment and plan: Patient states she is diet-controlled Accu-Cheks before meals at bedtime with signs go and so I will check A1c in a.m. Qualifiers: Diabetes mellitus type: type 2 Diabetes mellitus extermination inspector insulin use: without assisted use Diabetes mellitus complication status: without complication Qualified Code(s): E11.9 - Type 2 diabetes mellitus without complications (5) HTN (hypertension) Current Visit: No Status: Chronic Assessment and plan: Stable at this time we will continue with low-dose beta mireille Qualifiers: Hypertension type: essential hypertension Qualified Code(s): I10 - Essential (primary) hypertension (6) DVT prophylaxis Current Visit: Yes Status: Acute Assessment and plan: Patient's ambulatory - Time Spent With Patient Total time spent is greater than 50% in coordination of care (as documented) at patient's floor/unit and/or counseling patient:
[2018-12-01] MEDS: Aspirin 81 MG TAB.CHEW PO SCH (09:47)
--- NOTE | 2018-12-01 15:27 | Electrocardiograph Report ---
[place] [address] Test Date: 2018-12-01 Pat Name: Benita Youssef Department: EXAM3 Room: [facility] Gender: F Supervisor Finish End: : 1970 Requested By: Migel Wilson Order Number: [id number] Reading MD: Aravind Baker Measurements Intervals [place] Rate: 89 P: 45 MD: 153 QRS: -30 QRSD: 103 T: 57 QT: 397 QTc: 484 Interpretive Statements Sinus rhythm Abnormal R-wave progression, late transition Left ventricular hypertrophy Electronically Signed On 12-01-2018 15:25:39 EST by Aravind Baker
[2018-12-01] MEDS ORDERED: D5% in Water 1,000 ML IVC PRN (15:59)
[2018-12-01] MEDS ORDERED: Dextrose Gel 15 GM/37.5 ML TUBE PO PRN ×2 (15:59)
[2018-12-01] MEDS ORDERED: *HR* Dextrose 50 % in Water (Syg) 50 ML SYRINGE IVP PRN (15:59)
[2018-12-01 16:51] LABS: Amphetamine Screen,Urine Negative ng/mL (Cutoff=1000); Barbiturate Screen,Urine Negative ng/mL (Cutoff=200); Benzodiazepines Screen,Urine Negative ng/mL (Cutoff=200); Cannabinoid Screen,Urine Negative ng/mL (Cutoff = 50); Cocaine Screen,Urine Negative ng/mL (Cutoff= 300); Opiate Screen,Urine Negative ng/mL (Cutoff=300); Phencyclidine Screen,Urine Negative ng/mL (Cutoff=25)
[2018-12-01] MEDS: Insulin LISPRO 300 UNITS/3 ML VIAL SQ SCH ×2 (17:27→21:15)
[2018-12-02 05:57] LABS: Basophils # 0.1 K/mcL (0.0-0.2); Basophils % 0.6 %; Eosinophils # 0.4 K/mcL (0.0-0.6); Eosinophils % 3.9 %; Hematocrit 41.8 % (35.3-44.9); Hemoglobin 13.6 g/dL (11.5-15.4); Immature Granulocytes % 0.6 % (0-4); Lymphocytes # 2.5 K/mcL (0.6-4.6); Lymphocytes % 24.2 %; Mean Corpuscular HGB Conc 32.5 g/dL (31.6-35.5); Mean Corpuscular Hemoglobin 28.9 pg (28.0-33.3); Mean Corpuscular Volume 88.9 fL (83.0-100.0); Mean Platelet Volume 10.9 fL (9.4-12.4); Monocytes # 0.8 K/mcL (0.0-1.3); Monocytes % 7.7 %; Neutrophils # 6.6 K/mcL (1.6-8.9); Platelet Count 284 K/mcL (140-400); Red Cell Distribution Width 13.4 % (11.5-14.5)
[2018-12-02 06:17] LABS: BUN/Creatinine Ratio 16 (6-26); Blood Urea Nitrogen 14 mg/dL (6-20); Calcium 9.4 mg/dL (8.6-10.3); Carbon Dioxide 26 mEq/L (23-29); Chloride 106 mEq/L (98-107); Chol/HDL Ratio 8.5 (0-4.9); Cholesterol 290 mg/dL (< 200); Glucose 181 mg/dL (70-105); HDL Cholesterol 34 mg/dL (40-59); LDL Cholesterol,Calculated 199 mg/dL (0-99); Magnesium 2.1 mg/dL (1.6-2.6); Osmolality,Calculated 291 (280-300); Potassium 3.9 mEq/L (3.5-5.1); Sodium 138 mEq/L (136-145); Triglycerides 283 mg/dL (< 150); eGFR For Non-African Americans > 60 (> 60)
[2018-12-02 06:43] LABS: Estimated Average Glucose 160 mg/dl; Hemoglobin A1C 7.2 %
[2018-12-02] MEDS: Insulin LISPRO 300 UNITS/3 ML VIAL SQ SCH ×4 (08:18→20:40)
[2018-12-02] MEDS: Aspirin 81 MG TAB.CHEW PO SCH (08:31)
--- NOTE | 2018-12-02 13:01 | Internal Med Progress Note ---
Hospitalist Progress Note - Encounter Date of Encounter: 12/02/18 Time of Encounter: 13:00 - Subjective Interval History: Patient seen and examined at bedside. Patient states that she feels better at this time. She reports some mild chest pain overnight but otherwise has been chest pain-free this morning. She does state due to financial difficulties she has not taken any of her cardiac medications other than aspirin for the last several months. She denies chest pain or shortness of breath, lower extremity edema - Exam Vitals: Temp Pulse Resp BP Pulse Ox 97.7 F 81 17 134/72 98 12/02/18 11:11 12/02/18 11:11 12/02/18 11:11 12/02/18 11:11 12/02/18 11:11 Exam: Gen.: Alert and oriented 3, no acute distress HEENT: Mucous membranes moist, no oral lesions noted Heart: Regular rate and rhythm, no murmurs, rubs, gallops Lungs: Clear to auscultation bilaterally, no rales, rhonchi, wheezes Chest: Tenderness to palpation. No deformity noted. Abdomen: Soft, nontender, nondistended. Normoactive bowel sounds Extremities: No clubbing, cyanosis, edema Neuro: CN 2-12 intact, no focal deficits. - Assessment and Plan (1) Chest pain Current Visit: Yes Status: Acute Assessment and Plan: Patient chest pain overnight but is chest pain-free at this time. Troponins were 0.03, 0.04, 0.03. No EKG changes. Echo unchanged from previous. Patient does have reproducible chest pain but she states this is different pain than what led to her admission. Discussed with patient given that she has been noncompliant due to financial reasons with her medication regimen and had a cardiac stent less than a year ago I do think it would be worthwhile for her to undergo stress test. Plan for stress test tomorrow, if negative then we will discharge. (2) HTN (hypertension) Current Visit: Yes Status: Chronic Assessment and Plan: Blood pressure stable. Continue home medications. (3) HLD (hyperlipidemia) Current Visit: No Status: Acute Assessment and Plan: Patient has been noncompliant with statin regimen. We will restart atorvastatin 40 mg daily (4) Tobacco dependence Current Visit: No Status: Acute Assessment and Plan: Encourage cessation (5) Diabetes mellitus Current Visit: Yes Status: Chronic Assessment and Plan: Hemoglobin A1c 7.2 on presentation. Not on any treatment currently. Continue sliding scale insulin while admitted, consider metformin at discharge. (6) Hip pain Current Visit: Yes Status: Chronic Assessment and Plan: Patient reports chronic and progressive right hip pain. Denies any trauma. Able to walk and put weight on it. We will obtain right hip x-ray. (7) DVT prophylaxis Current Visit: Yes Status: Acute Assessment and Plan: Patient's ambulatory - Time Spent with Patient Total time spent is greater than 50% in coordination of care (as documented) at patient's floor/unit and/or counseling patient: 25 - 35 minutes Plan of Care Discussed with: patient Internal Medicine: Result - Labs CBC & Chem 7: 12/02/18 05:14 12/02/18 05:14 Labs: Short CBC 12/02/18 Range/Units 05:14 WBC 10.4 (4.3-11.1) K/mcL Hgb 13.6 (11.5-15.4) g/dL Hct 41.8 (35.3-44.9) % Plt Count 284 (140-400) K/mcL Neutrophils # 6.6 (1.6-8.9) K/mcL BMP 12/02/18 05:14 Sodium 138 Potassium 3.9 Chloride 106 Carbon Dioxide 26 BUN 14 Creatinine 0.85 Glucose 181 H Calcium 9.4 Cardiac Enzymes 12/01/18 Range/Units 16:42 Troponin I 0.03 (< 0.04) ng/mL - ABG Interpretation ABG results: PT/INR, D-dimer PT 10.2 Seconds (9.4-12.1) 12/01/18 04:24 - Impressions Impressions Echocardiogram 12/01/18 08:58 Impressions: LVEF 55-60%. Mild segmental LV wall motion abnormality previously seen. Mild left ventricular diastolic dysfunction. Normal right ventricular structure and function. Mild mitral regurgitation. Mild tricuspid regurgitation. No pulmonary hypertension. Left Ventricular Wall Motion: Rest Echo Findings The basal inferior and basal inferior septal hills were hypokinetic. All other wall segments showed normal motion. Findings: Study Quality * Technically adequate exam. ECG Findings * Normal sinus rhythm. Left Ventricle * LVEF 55-60%. * Normal LV chamber size, wall thickness and function. * Mild left ventricular diastolic dysfunction. Right Ventricle * Normal right ventricular structure and function. Left Atrium * Moderately dilated left atrium. Right Atrium * Normal right atrial size. Aortic Valve * Trileaflet aortic valve. * No aortic stenosis. * Trace aortic regurgitation. Mitral Valve * No mitral stenosis. * Mild mitral regurgitation. * Normal mitral valve structure. Tricuspid Valve * Tricuspid valve not well visualized. * Mild tricuspid regurgitation. * Estimated RA pressure is 3 mmHg. * Estimated RVSP is 24 mmHg. * No pulmonary hypertension. Pulmonic Valve * Pulmonic valve is not well visualized. * No pulmonic stenosis. * No pulmonic regurgitation. Pulmonary Artery * Pulmonary artery not well visualized. Aorta * Normally sized aortic root. Pericardium * There is no pericardial effusion present. Interatrial Septum * No evidence of PFO by color Doppler. IVC * Normal IVC dimensions and inspiratory collapse. Hip X-Ray 12/02/18 08:25 IMPRESSION: No acute osseous abnormality or significant degenerative changes. D/ / Annetta Macario MD / Annetta Macario MD Interpreting Provider: Annetta Macario MD Consult Discharge Plan - Plan Referrals: NONE,PCP [Primary Care Provider] - (1) Chest pain Qualifiers: Chest pain type: unspecified Qualified Code(s): R07.9 - Chest pain, unspecified (2) HTN (hypertension) Qualifiers: Hypertension type: essential hypertension Qualified Code(s): I10 - Essential (primary) hypertension (3) HLD (hyperlipidemia) Qualifiers: Hyperlipidemia type: unspecified Qualified Code(s): E78.5 - Hyperlipidemia, unspecified (5) Diabetes mellitus Qualifiers: Diabetes mellitus type: type 2 Diabetes mellitus fdc insulin use: without fdc use Diabetes mellitus complication status: without complication Qualified Code(s): E11.9 - Type 2 diabetes mellitus without complications (6) Hip pain Qualifiers: Laterality: right Qualified Code(s): M25.551 - Pain in right hip
[2018-12-02] MEDS ORDERED: traMADol 50 MG TABLET PO ONE (21:14)
[2018-12-02] MEDS ORDERED: *HR* HYDROcodone/Acet 5/325 mg TABLET PO ONE (23:35)
[2018-12-03] MEDS ORDERED: Regadenoson 0.4 MG/5 ML SYRINGE IVP ONE (06:08)
[2018-12-03] MEDS: Insulin LISPRO 300 UNITS/3 ML VIAL SQ SCH ×4 (07:17→21:37)
[2018-12-03] MEDS: Aspirin 81 MG TAB.CHEW PO SCH (09:21)
[2018-12-03 09:39] LABS: Basophils # 0.1 K/mcL (0.0-0.2); Basophils % 0.5 %; Eosinophils # 0.4 K/mcL (0.0-0.6); Eosinophils % 3.6 %; Hematocrit 43.4 % (35.3-44.9); Hemoglobin 14.3 g/dL (11.5-15.4); Immature Granulocytes % 0.5 % (0-4); Lymphocytes # 3.2 K/mcL (0.6-4.6); Mean Corpuscular HGB Conc 32.9 g/dL (31.6-35.5); Mean Corpuscular Hemoglobin 29.3 pg (28.0-33.3); Mean Corpuscular Volume 88.9 fL (83.0-100.0); Mean Platelet Volume 10.8 fL (9.4-12.4); Monocytes # 0.7 K/mcL (0.0-1.3); Monocytes % 6.7 %; Neutrophils # 6.6 K/mcL (1.6-8.9); Platelet Count 284 K/mcL (140-400); Red Blood Count 4.88 M/mcL (3.82-4.97); Red Cell Distribution Width 13.2 % (11.5-14.5); Segmented Neutrophils % 59.7 %
[2018-12-03 09:52] LABS: BUN/Creatinine Ratio 20 (6-26); Blood Urea Nitrogen 16 mg/dL (6-20); Carbon Dioxide 25 mEq/L (23-29); Chloride 106 mEq/L (98-107); Glucose 143 mg/dL (70-105); Magnesium 1.8 mg/dL (1.6-2.6); Osmolality,Calculated 288 (280-300); Potassium 4.1 mEq/L (3.5-5.1); Sodium 137 mEq/L (136-145); eGFR For Non-African Americans > 60 (> 60)
--- NOTE | 2018-12-03 14:03 | Cardiology Consult Note ---
<Chelsie Wilson - Last Filed: 12/03/18 14:28> Date of Encounter: 12/03/18 Time of Encounter: 13:00 Assessment and Plan (1) Chest pain Current Visit: Yes Status: Acute Per cardiology: -Chest pain atypical, however states is similar to previous angina. -Denies current chest pain. -Troponin negative, 0.04, negative. -No acute ischemic ECG changes -Stress test with small sized, moderate intensity reversible basal inferoseptal perfusion defect consistent with ischemia. -LHC 01/2018 with 30% proximal LAD, 30% diagonal 2, 30% proximal circumflex, 95% mid to distal circumflex with KAVITA placed, 99% proximal RCA further noted to be tortuous and diffusely diseased, 60% mid RCA. -Of note, patient reports lost her insurance and was not taking any of her medications for about 6 months, including dual anti-platelet therapy. Reports insurance issues have now been resolved. -TTE with LVEF 55-60%, mild diastolic dysfunction, mild MR, mild TR, basal inferior and basal inferior septal hills hypokinetic. TTE similar to previous TTE. -On asa, plavix, statin, BB. -Recommend LHC, discussed with patient who is undecided whether she would proceed with LHC. Will make NPO after midnight for possible LHC in am. Qualifiers: Chest pain type: unspecified Qualified Code(s): R07.9 - Chest pain, unspecified (2) CAD (coronary artery disease) Current Visit: No Status: Chronic Per cardiology: -Known CAD s/p Previous PCI. -See chest pain as above. Qualifiers: Coronary Disease-Associated Artery/Lesion type: [place] artery [place] vs. transplanted heart: [place] heart Associated angina: with unspecified angina Qualified Code(s): I25.119 - Atherosclerotic heart disease of [place] coronary artery with unspecified angina pectoris Discussion w patient/family: The assessment and plan as outlined above was discussed with the patient and/or family members who expressed understanding and agreement. All questions were answered. Thank you for involving us in the care of your patient. Please call with any questions. Discussed and reviewed with History of Present Illness Consult date: 12/03/18 Requesting physician: Santosh Segovia Consult reason: abnormal stress test Chief complaint: chest pain History of present illness: Ms. Youssef is a 48 year old female with a relevant past medical history of DM, HTN, HLD, CAD s/p PCI, CA, hypothyroidism, Ormand's disease, retroperitoneal fibrosis, tobacco abuse, carotid stenosis s/p CEA who presented to [facility] with complaints of chest pressure. Patient reports chest pressure woke her up from sleeping. Denies aggravating or alleviating factors. Patient reports took 2 nitro without relief or change in symptoms. Patient reports symptoms spontaneously resolved after admission to [facility]. Reports symptoms lasted about 5 hours. Denies current chest pain, pressure. Denies shortness of breath. Past Med Surg Social Fam HX - Past Medical History Attestation: Yes The following information was validated with the patient. Source: patient, old records reviewed Medical history: coronary artery disease, diabetes, hyperlipidemia, hypertension, myocardial infarction Additional medical history: Ormands disease Psychiatric history: no psych history - Past Surgical History Surgical History: angioplasty/stent Additional surgical history: multiple urinary stent placement. wisdom teeth removal - Social History Smoking Status: Never smoker Packs per day: 1 Smokeless Tobacco Status: No Alcohol use: none Drug use: none - Family History Father Living Status: Hx Family Cardiac Disorders: Yes Mother Living Status: Hx Family Cardiac Disorders: Yes Hx Family Respiratory Disorders: Yes Medications and Allergies Aspirin [Lo-Dose Aspirin EC] 81 mg PO DAILY 01/17/18 [History] Allergy/AdvReac Type Severity Reaction Status Date / Time codeine AdvReac Vomiting Verified 12/01/18 07:44 anesthesia AdvReac Drowsy Uncoded 12/01/18 07:44 All Systems Review: The remainder of the systems were reviewed and are negative - Cardiovascular Cardiovascular: as per HPI, chest pain at rest Physical Examination Vital Signs, Last 4 Hours Temp Pulse Resp BP Pulse Ox 12/03/18 12:46 97.8 F 85 18 136/85 95 General: Conversant, No Apparent Distress HEENT: Atraumatic, Normocephaly, Mucus Membranes Moist Neck: No JVD, Normal carotid pulses Cardiac: Reg Rate and Rhythm, Normal S1 and S2, No Murmur Lungs: Normal Breath Sounds, No Wheeze, Rales, Rhonchi Neuro: Alert and responsive, No focal deficits noted Abdomen: Soft, Non-Tender Skin: No rashes noted on visualized skin Musculoskeletal: No Chest Wall Tenderness Extremities: No Clubbing, No Cyanosis, No Edema, Normal Pulses Results 12/03/18 09:21 12/03/18 09:21 Lab Results Active Medications Acetaminophen (Tylenol) 650 mg PO Q6HR PRN PRN Reason: Mild Pain/Fever Stop: 06/02/19 08:57 Last Admin: 12/01/18 11:21 Dose: 650 mg Aspirin (Aspirin) 81 mg PO DAILY [facility] Stop: 06/02/19 09:01 Last Admin: 12/03/18 09:21 Dose: 81 mg Atorvastatin Calcium (Lipitor) 40 mg PO HS [facility] Stop: 06/02/19 21:01 Last Admin: 12/02/18 20:22 Dose: 40 mg Clopidogrel Bisulfate (Plavix) 75 mg PO DAILY [facility] Stop: 06/02/19 11:01 Last Admin: 12/03/18 09:21 Dose: 75 mg Dextrose/Water (Dextrose 50% (Syg)) 25 ml IVP AD PRN PRN Reason: Hypoglycemia Stop: 06/02/19 16:00 Glucagon (Glucagen) 1 mg IM ONCE PRN PRN Reason: Hypoglycemia Stop: 06/02/19 16:00 Glucose (Gluctose) 15 gm PO ONCE PRN PRN Reason: Hypoglycemia Stop: 06/02/19 16:00 Glucose (Gluctose) 30 gm PO ONCE PRN PRN Reason: Hypoglycemia Stop: 06/02/19 16:00 Dextrose (Dextrose 5%) 1,000 mls @ 100 mls/hr IVC .Q10H PRN PRN Reason: HYPOGLYCEMIA Stop: 06/02/19 16:00 Insulin Human [facility]alog) [facility]; Protocol Stop: 06/02/19 16:31 Last Admin: 12/03/18 11:07 Dose: Not Given Insulin Human Lispro (Humalog) 0 units SQ [facility]; Protocol Stop: 06/02/19 21:01 Last Admin: 12/02/18 20:40 Dose: Not Given Metoprolol Tartrate (Lopressor) 25 mg PO BID [facility] Stop: 06/03/19 09:01 Last Admin: 12/02/18 20:22 Dose: 25 mg Naloxone HCl (Narcan) 0.4 mg IVP Q2MIN PRN PRN Reason: SEE COMMENTS Stop: 06/02/19 08:57 Nitroglycerin (Nitroglycerin) 0.4 mg SL Q5MIN PRN PRN Reason: Chest Pain Stop: 06/02/19 04:25 Last Admin: 12/01/18 05:18 Dose: 0.4 mg Ondansetron HCl (Zofran) 4 mg IVP Q8HR PRN PRN Reason: Nausea And Vomiting Stop: 06/02/19 08:59 Laboratory Tests 12/01/18 12/01/18 12/01/18 04:24 10:05 16:42 Hgb Creatinine Troponin I 0.03 0.04 H* 0.03 LDL Cholesterol, Calc 12/02/18 12/03/18 12/03/18 05:14 09:21 09:21 Hgb 14.3 Creatinine 0.81 Troponin I LDL Cholesterol, Calc 199 H - Imaging and Cardiology Chest Xray: report reviewed Stress Test: report reviewed Echo: report reviewed Cardiac cath: report reviewed - EKG Interpretation EKG results cardiology: personally reviewed (ECG with SR, HR 89. Non-specific T wave abnormalities noted, similar to previous.) Consult Discharge Plan - Plan Referrals: Evangelina Mehta MD [Partnered Physician] - 12/04/18 1:00 pm <Josiah Quick - Last Filed: 12/03/18 15:46> Date of Encounter: 12/03/18 - Attending Attestation I have personally performed a face to face evaluation on this patient. I have reviewed and agree with the documented findings and care plan as documented by the POSITION CLASSIFICATION MANAGER. History and Exam by me shows: 48-year-old female current everyday smoker with history of CAD status post stent, presenting with chest pressure at rest similar to her previous presentation last year when she received a stent to the left circumflex. She has missed multiple doses of her dual antiplatelets because of insurance issues. Now back on insurance. Found to have positive stress test in the right coronary artery territory. AAOX3 in NAD at the bedside Hemodynamically stable Cardiopulmonary exam revealed S1, S2, no murmur. Clear lungs Echo shows preserved ejection fraction. Impression/plan: Unstable angina with positive stress test, warrants cardiac catheterization. Details of procedure, risks, benefits and alternatives were explained to the patient and she agrees to proceed. It was explained to her in detail the need to take her dual antiplatelets unfailingly. She was encouraged to quit smoking as well. ThanksJosiah MD [facility] Assessment and Plan Discussion w patient/family: The assessment and plan as outlined above was discussed with the patient and/or family members who expressed understanding and agreement. All questions were answered. Thank you for involving us in the care of your patient. Please call with any questions. History of Present Illness History of present illness: Ms. Youssef is a 48 year old female All Systems Review: The remainder of the systems were reviewed and are negative Physical Examination Vital Signs, Last 4 Hours Temp Pulse Resp BP Pulse Ox 12/03/18 12:46 97.8 F 85 18 136/85 95 Results 12/03/18 09:21 12/03/18 09:21 Lab Results 12/03/18 12/03/18 09:21 09:21 WBC 11.0 Hgb 14.3 Hct 43.4 Plt Count 284 Sodium 137 Potassium 4.1 Chloride 106 Carbon Dioxide 25 BUN 16 Creatinine 0.81 Glucose 143 H Calcium 9.0 Magnesium 1.8
--- NOTE | 2018-12-03 16:20 | Internal Med Progress Note ---
Hospitalist Progress Note - Encounter Date of Encounter: 12/03/18 Time of Encounter: 16:17 - Subjective Interval History: Patient seen and examined at bedside. Patient states that she continues to feel good. She denies any active chest pain since admission. She denies shortness of breath, diaphoresis, nausea. - Exam Vitals: Temp Pulse Resp BP Pulse Ox 97.8 F 85 18 136/85 95 12/03/18 12:46 12/03/18 12:46 12/03/18 12:46 12/03/18 12:46 12/03/18 12:46 Exam: Gen.: Alert and oriented 3, no acute distress HEENT: Mucous membranes moist, no oral lesions noted Heart: Regular rate and rhythm, no murmurs, rubs, gallops Lungs: Clear to auscultation bilaterally, no rales, rhonchi, wheezes Chest: Mild tenderness to palpation. No deformity noted. Abdomen: Soft, nontender, nondistended. Normoactive bowel sounds Extremities: No clubbing, cyanosis, edema Neuro: CN 2-12 intact, no focal deficits. - Assessment and Plan (1) Abnormal stress test Current Visit: Yes Status: Acute Assessment and Plan: She underwent cardiac stress testing revealed small size, moderate intensity, reversible basal inferoseptal defect consistent with ischemia. Given these re sults cardiology was consulted and recommended left heart cath. Discussed with patient I recommended that she proceed with left heart cath, possibly tomorrow. (2) Chest pain Current Visit: Yes Status: Acute Assessment and Plan: Chest pain-free since admission. Likely due to underlying CAD given results of stress test as above. Cardiology following and recommended left heart catheterization. (3) Diabetes mellitus Current Visit: Yes Status: Chronic Assessment and Plan: Hemoglobin 7.2 on presentation. Discussed with patient she states she has been attempting to diet control her diabetes however she states this is her the highest her A1c has ever been. Discussed with patient the risks and complicat ions of diabetes including coronary disease and therefore have recommended that she go on medical therapy. Patient is agreeable to this. Continue sliding scale insulin while admitted and start metformin at discharge. (4) HTN (hypertension) Current Visit: Yes Status: Chronic Assessment and Plan: Blood pressure stable. Continue home medications. (5) HLD (hyperlipidemia) Current Visit: Yes Status: Acute Assessment and Plan: Continue statin therapy. (6) Tobacco dependence Current Visit: No Status: Acute Assessment and Plan: Encourage cessation (7) Hip pain Current Visit: Yes Status: Chronic Assessment and Plan: Stable. X-ray were reviewed from yesterday. No abnormality. Recommend outpatient follow-up (8) DVT prophylaxis Current Visit: Yes Status: Acute Assessment and Plan: Patient's ambulatory - Time Spent with Patient Total time spent is greater than 50% in coordination of care (as documented) at patient's floor/unit and/or counseling patient: Internal Medicine: Result - Labs CBC & Chem 7: 12/03/18 09:21 12/03/18 09:21 Labs: Short CBC 12/03/18 Range/Units 09:21 WBC 11.0 (4.3-11.1) K/mcL Hgb 14.3 (11.5-15.4) g/dL Hct 43.4 (35.3-44.9) % Plt Count 284 (140-400) K/mcL Neutrophils # 6.6 (1.6-8.9) K/mcL BMP 12/03/18 09:21 Sodium 137 Potassium 4.1 Chloride 106 Carbon Dioxide 25 BUN 16 Creatinine 0.81 Glucose 143 H Calcium 9.0 - ABG Interpretation ABG results: PT/INR, D-dimer PT 10.2 Seconds (9.4-12.1) 12/01/18 04:24 Consult Discharge Plan - Plan Referrals: Evangelina Mehta MD [Partnered Physician] - 12/04/18 1:00 pm (2) Chest pain Qualifiers: Chest pain type: unspecified Qualified Code(s): R07.9 - Chest pain, unspecified (3) Diabetes mellitus Qualifiers: Diabetes mellitus type: type 2 Diabetes mellitus long term care administrator insulin use: without long term care administrator use Diabetes mellitus complication status: without complication Qualified Code(s): E11.9 - Type 2 diabetes mellitus without complications (4) HTN (hypertension) Qualifiers: Hypertension type: essential hypertension Qualified Code(s): I10 - Essential (primary) hypertension (5) HLD (hyperlipidemia) Qualifiers: Hyperlipidemia type: unspecified Qualified Code(s): E78.5 - Hyperlipidemia, unspecified (7) Hip pain Qualifiers: Laterality: right Qualified Code(s): M25.551 - Pain in right hip
[2018-12-03] MEDS: *HR* HYDROcodone/Acet 5/325 mg TABLET PO PRN ×2 (16:54→23:47)
[2018-12-03] MEDS: Acetaminophen 325 MG TABLET PO PRN (20:11)
[2018-12-04 05:06] LABS: Basophils # 0.1 K/mcL (0.0-0.2); Basophils % 0.6 %; Eosinophils # 0.5 K/mcL (0.0-0.6); Eosinophils % 4.8 %; Hematocrit 39.8 % (35.3-44.9); Hemoglobin 13.2 g/dL (11.5-15.4); Immature Granulocytes % 0.7 % (0-4); Lymphocytes # 3.4 K/mcL (0.6-4.6); Lymphocytes % 33.3 %; Mean Corpuscular HGB Conc 33.2 g/dL (31.6-35.5); Mean Corpuscular Volume 87.5 fL (83.0-100.0); Mean Platelet Volume 10.4 fL (9.4-12.4); Monocytes # 0.8 K/mcL (0.0-1.3); Monocytes % 7.5 %; Neutrophils # 5.4 K/mcL (1.6-8.9); Platelet Count 277 K/mcL (140-400); Red Blood Count 4.55 M/mcL (3.82-4.97); Red Cell Distribution Width 13.2 % (11.5-14.5); Segmented Neutrophils % 53.1 %
[2018-12-04 05:23] LABS: BUN/Creatinine Ratio 21 (6-26); Blood Urea Nitrogen 17 mg/dL (6-20); Calcium 9.1 mg/dL (8.6-10.3); Carbon Dioxide 25 mEq/L (23-29); Chloride 107 mEq/L (98-107); Glucose 169 mg/dL (70-105); Magnesium 1.8 mg/dL (1.6-2.6); Osmolality,Calculated 293 (280-300); Potassium 3.9 mEq/L (3.5-5.1); Sodium 139 mEq/L (136-145); eGFR For Non-African Americans > 60 (> 60)
[2018-12-04] MEDS: Aspirin 81 MG TAB.CHEW PO SCH (08:20)
[2018-12-04] MEDS: Insulin LISPRO 300 UNITS/3 ML VIAL SQ SCH ×4 (08:20→22:48)
[2018-12-04] MEDS: *HR* HYDROcodone/Acet 5/325 mg TABLET PO PRN ×2 (08:25→18:42)
--- NOTE | 2018-12-04 12:19 | Internal Med Progress Note ---
Hospitalist Progress Note - Encounter Date of Encounter: 12/04/18 Time of Encounter: 09:00 - Subjective Interval History: Patient denies any recurrence of chest pain, shortness of breath, nausea/vomiting, or diaphoresis. No fever/chills - Exam Vitals: Temp Pulse Resp BP Pulse Ox 97.9 F 72 14 143/79 97 12/04/18 08:19 12/04/18 08:19 12/04/18 08:19 12/04/18 08:19 12/04/18 08:19 Exam: Gen.: Alert and oriented 3, no acute distress Heart: Regular rate and rhythm, no murmurs Lungs: Clear to auscultation bilaterally, no rales, rhonchi, wheezes Abdomen: Soft, nontender, nondistended. Normoactive bowel sounds Neuro: CN 2-12 intact, no focal deficits. - Assessment and Plan (1) Abnormal stress test Current Visit: Yes Status: Acute Assessment and Plan: History of PCI in 12/2017 cardiac stress test on 12/03 revealed small size, moderate intensity, reversible basal inferoseptal defect consistent with ischemia. Cardiology input appreciated, for [facility] today Continue aspirin, Plavix, statin, bb (2) Chest pain Current Visit: Yes Status: Acute Assessment and Plan: as above (3) HTN (hypertension) Current Visit: Yes Status: Chronic Assessment and Plan: Blood pressure stable. Continue home medications. (4) HLD (hyperlipidemia) Current Visit: Yes Status: Acute Assessment and Plan: Continue statin therapy. (5) Tobacco dependence Current Visit: No Status: Acute Assessment and Plan: Encourage cessation (6) Diabetes mellitus Current Visit: Yes Status: Chronic Assessment and Plan: A1c 7.2 low dose sliding scale metformin upon discharge (7) DVT prophylaxis Current Visit: Yes Status: Acute Assessment and Plan: EPCD - Time Spent with Patient Total time spent is greater than 50% in coordination of care (as documented) at patient's floor/unit and/or counseling patient: Plan of Care Discussed with: patient Internal Medicine: Result - Labs CBC & Chem 7: 12/04/18 04:50 12/04/18 04:50 Labs: Short CBC 12/04/18 Range/Units 04:50 WBC 10.1 (4.3-11.1) K/mcL Hgb 13.2 (11.5-15.4) g/dL Hct 39.8 (35.3-44.9) % Plt Count 277 (140-400) K/mcL Neutrophils # 5.4 (1.6-8.9) K/mcL BMP 12/04/18 04:50 Sodium 139 Potassium 3.9 Chloride 107 Carbon Dioxide 25 BUN 17 Creatinine 0.80 Glucose 169 H Calcium 9.1 - ABG Interpretation ABG results: PT/INR, D-dimer PT 10.2 Seconds (9.4-12.1) 12/01/18 04:24 Consult Discharge Plan - Plan Referrals: Evangelina Mehta MD [Partnered Physician] - 12/04/18 1:00 pm (2) Chest pain Qualifiers: Chest pain type: unspecified Qualified Code(s): R07.9 - Chest pain, unspecified (3) HTN (hypertension) Qualifiers: Hypertension type: essential hypertension Qualified Code(s): I10 - Essential (primary) hypertension (4) HLD (hyperlipidemia) Qualifiers: Hyperlipidemia type: unspecified Qualified Code(s): E78.5 - Hyperlipidemia, unspecified (6) Diabetes mellitus Qualifiers: Diabetes mellitus type: type 2 Diabetes mellitus intermodal dispatcher insulin use: without fci use Diabetes mellitus complication status: without complication Qualified Code(s): E11.9 - Type 2 diabetes mellitus without c omplications
[2018-12-04] MEDS ORDERED: Heparin 1,000 UNITS/500 mL 500 ML ONE (12:38)
[2018-12-04] MEDS ORDERED: *HR* Heparin 10,000 UNIT/10 ML VIAL ONE (12:38)
[2018-12-04] MEDS ORDERED: Nitroglycerin 1,000 MCG/10 ML VIAL IV ONE (12:38)
[2018-12-04] MEDS ORDERED: ISOVUE-370 200 ML INFUS..BTL ONE (12:38)
[2018-12-04] MEDS ORDERED: 0.9 % Sodium Chloride 1,000 ML ONE ×2 (12:38→13:15)
[2018-12-04] MEDS ORDERED: Verapamil 5 MG/2 ML VIAL ONE (12:38)
[2018-12-04] MEDS ORDERED: *HR* Midazolam HCl 2 MG/2 ML VIAL ONE ×2 (13:08→13:30)
[2018-12-04] MEDS ORDERED: *HR* FentaNYL (PF) 100 MCG/2 ML VIAL ONE (13:08)
--- NOTE | 2018-12-04 13:11 | Pre-Sedation Evaluation ---
Pre-sedation evaluation - Pre-sedation checklist Date of procedure: 12/04/18 Procedure: Heart cath Recent Vitals: Last Vital Signs Temp 97.9 F 12/04/18 08:19 Pulse 72 12/04/18 08:19 Resp 14 12/04/18 08:19 BP 143/79 12/04/18 08:19 Pulse Ox 97 12/04/18 08:19 H&P (including ROS) documented in medical record: Yes Previous reaction to sedatives/anesthetics: Yes; explain in comment Dietary Status: Clear fluids after Midnight Dentition: dentures removed ASA Classification *see protocol: CLASS II-Mild systemic disease Plan of Care: Pt appropriate candidate for procedure/moderate/conscious sedation, Risks/benefits of procedure/sedation discussed w/ patient/family Cardiac Registry (Cardio Only) - Functional Capacity Functional Capacity: >=4 METS with symptoms - Clincal Frailty Scale Clinical Frailty Scale: Managing Well
--- NOTE | 2018-12-04 14:05 | Invasive Diagnostic Lab Proc ---
Name: Benita Youssef Date of Study: 12/04/2018 Date: 1970 Ht: 65.0in Medical Record#: [id number] Age: 48 Wt: 189.82lb Gender: Female BSA: 1.93 Order #: [id number] BMI: 31.63 Physicians Procedure Physician: Berry Bianchi MD, [facility] Referring MD: Referring MD: Staff Name Position Time In Sites, Sandra RT (R) Monitor 01:17 PM Sandra Connell RT (R) Scrub 01:17 PM Maria M Treviño RN Truck Sales Representative 01:17 PM Indications Indication Abnormal Test - Stress Procedures Performed Procedure L HRT ARTERY/VENTRICLE ANGIO Pre-Procedure Checklist Informed consent is complete signed and on chart. H&P is on chart. ID band is on and ID verified with patient. Patient NPO for procedure The procedure was described for the patient and questions were answered. Blood Pressure: 143/79 ECG is on chart. Rhythm: NSR Plan of Care Patient will tolerate the procedure without complications. Adequate level of comfort will be maintained. Hemodynamics will remain stable Patient will recover from procedure without complications. Respiratory function will be maintained. Cardiac rhythm will remain stable. Patient temperature will be maintained. Patient and/or family have verbalized understanding of the procedure. Patient Education Chief Complaint/Reason for Test: Cardiac Cath Developmental Category: Adult (18-64 years) Developmentally Appropriate for Age: Yes Learning Barriers: None Education Needs: Procedure Education Method: Verbal Information Taught: Cardiac Cath Educational Evaluation: Able to repeat information Intravenous Access Time IV Size Location DC'd Fluid/Drip Rate Units RN 18g 1 /" Patent On Arrival Rt Arm 0.9NaCl Maria M Treviño RN Allergies codeine anesthesia Vital Signs Time BP (mmHg) HR (bpm) O2 Sat. RR (bpm) LOC 01:18 PM / % 5 = Fully awake and oriented or at pre-proc level 01:18 PM / % 4 = Oriented but drowsy 01:16 PM 142 / 77 60 100 % 32 01:21 PM 134 / 76 70 97 % 14 01:26 PM 111 / 73 72 96 % 15 01:31 PM 106 / 66 71 99 % 10 01:36 PM 115 / 65 67 97 % 11 01:41 PM 102 / 64 72 97 % 11 01:47 PM 135 / 76 68 98 % 17 Procedural Medications Time Medication Dose Units Method Given By 01:17 PM Oxygen 2 L/min nasal cannula Maria M Treviño RN 01:18 PM Versed 2 mg Intravenous Maria M Treviño RN 01:18 PM Fentanyl 50 mcg Intravenous Maria M Treviño RN 01:29 PM Versed 1 mg Intravenous Maria M Treviño RN 01:30 PM Lidocaine 2% 20 ml Subcutaneous Berry Bianchi MD, [facility] Bart Score Preprocedure Postprocedure Activity 2- Moves 4 extremities sustained head lift Activity 2- Moves 4 extremities sustained head lift Circulation 2- SBP +/= 20 points of pre-anesthetic level Circulation 2- SBP +/= 20 points of pre-anesthetic level Consciousness 2- Awake and alert oriented x 3 Consciousness 2- Awake and alert oriented x 3 O2 Saturation 2- Able to maintain O2 satruation of 92% on room air O2 Saturation 2- Able to maintain O2 satruation of 92% on room air Respiratory 2- Able to deep breathe and cough well Respiratory 2- Able to deep breathe and cough well Total Score 10 Total Score 10 Contrast Agent: Isovue Diagnostic Contrast: 74 ml Total Contrast: 74 ml Fluoro Dose: 3978 mGy Procedure Log Time Note Enter By 01:15 PM Vitals capture started with the following parameters, Patient=Adult, Interval=5 min, Initial Fubvzalt=242 mmHg, Deflation Rate=5 mmHg, Cuff placed on Right Arm 01:15 PM CathStat 01:15 PM Recorded ECG: HR=63 Condition=Condition 1 01:16 PM HR=60 bpm, ARGD=867/77 mmhg, VuD7=917.0 %, Resp=32 B/min 01:17 PM Pt arrived to lab systems analyst 2 at 13:17 tsites 01:17 PM Sandra West RT (R) Position: Monitor Time in: 13:17 tsites 01:17 PM Sandra Connell RT (R) Position: Scrub Time in: 13:17 tsites 01:17 PM Maria M Treviño RN Position: Truck Sales Representative Time in: 13:17 tsites 01:17 PM Patient charges- Angio tray pack, Navilyst 3mm J, Pulse Oximetry and ACIST tubing and transducer tsites 01:17 PM Physician arrived 13:17 tsites 01:17 PM Meet and greet completed tsites 01:17 PM Sign in performed according to hospital policy. Informed consent was obtained. tsites 01:17 PM Procedure start 13:17 tsites :17 PM Hair removed from procedure site in holding area using clippers. Bilateral groin prepped with Chloraprep by Sandra Connell (R), then patient was draped. Skin intact. tsites :18 PM Time: 13:17 Oxygen on at 2 L/min per nasal cannula by Maria M Treviño RN tsites :18 PM Time: 13:18 Versed 2 mg Intravenous Given by Maria M Treviño RN tsites :18 PM Time: 13:18 Fentanyl 50 mcg Intravenous Given by Maria M Treviño RN tsites :18 PM Time: 13:18 Patient comfortable and pain free: Yes tsites :18 PM Time: 13:18LOC: 5 = Fully awake and oriented or at pre-proc level tsites :18 PM Clinical Presentation: Unstable angina tsites 01:20 PM Pressure channel 1 zero failed. 01:20 PM Pressure channel 1 zero failed. 01:20 PM Pressure channel 1 zero failed. 01:21 PM HR=70 bpm, RRHW=546/76 mmhg, SpO2=97 %, Resp=14 B/min 01:26 PM HR=72 bpm, JOQG=891/73 mmhg, SpO2=96.0 %, Resp=15 B/min 01:29 PM Time out was performed according to hospital policy. Conscious sedation and anesthesia was achieved (see medication log with in this report above) tsites 01:30 PM Time: 13:29 Versed 1 mg Intravenous Given by Maria M Treviño RN tsites 01:30 PM Time: 13:30 20 ml Lidocaine 2% to right groin Subcutaneous Given by Berry Bianchi MD, FAC tsites :31 PM HR=71 bpm, MGAN=866/66 mmhg, SpO2=99.0 %, Resp=10 B/min 01:31 PM Access obtained by percutaneous puncture. 6Fr 10cm Terumo Bronson sheath placed in right Femoral artery. [id number] tsites :31 PM 5Fr FL 4 catheter inserted over the wire [facility] tsites 01:31 PM 0.035 145cm Navilyst 3mmJ wire [id number] tsites 01:32 PM LCA angiography performed in multiple views. tsites 01:33 PM Recorded Pressure: Ao, HR=65, Condition=Condition 1 (Aorta) Ao 121/76/95 01:33 PM Time: 13:18LOC: 4 = Oriented but drowsy tsites 01:33 PM Time: 13:18 Patient comfortable and pain free: Yes tsites 01:35 PM wire reinserted catheter removed tsites 01:35 PM 5Fr FL3.5 catheter inserted over the wire [id number] tsites 01:36 PM Lesion found in Proximal Circumflex. Pre Stenosis: 20 Pre ANN Flow: tsites 01:36 PM HR=67 bpm, RQXY=873/65 mmhg, SpO2=97.0 %, Resp=11 B/min 01:36 PM Lesion found in Mid Circumflex. Pre Stenosis: 50 Pre ANN Flow: tsites 01:37 PM LCA angiography performed in multiple views. tsites 01:38 PM Lesion found in Proximal LAD. Pre Stenosis: 90 Pre NAN Flow: tsites 01:39 PM Lesion found in Mid LAD. Pre Stenosis: 70 Pre ANN Flow: tsites 01:39 PM Lesion found in 1st Marginal. Pre Stenosis: 70 Pre ANN Flow: tsites 01:40 PM Recorded Pressure: LV, HR=91, Condition=Condition 1 (Left Ventricle) LV 96/-5/2 01:40 PM wire reinserted catheter removed tsites 01:40 PM 5Fr FR 4 catheter inserted over the wire DN tsites 01:40 PM Catheter crossed the aortic valve and was selectively placed in the left ventricle. Pressures recorded on pullback for left heart catheterization. tsites 01:40 PM Bolus angiogram of left Ventricle complete: 10 ml/sec for a total of 30 mls tsites 01:41 PM HR=72 bpm, ZPUK=689/64 mmhg, SpO2=97.0 %, Resp=11 B/min 01:41 PM Recorded Pressure: LV, Ao, HR=67, Condition=Condition 1 (Left Ventricle) LV 116/1/9, (Aorta) Ao 113/61/81 01:42 PM RCA angiography performed in multiple views. tsites 01:42 PM wire reinserted catheter removed tsites 01:43 PM Lesion found in Proximal RCA. Pre Stenosis: 100 Pre ANN Flow: tsites 01:43 PM Proximal Left Anterior Descending Coronary Artery with 90% stenosis. If graft is supplying this territory, 0 % stenosis. tsites 01:43 PM Mid/Distal Left Anterior Descending Coronary Artery and diagonal branches with 70% stenosis. If graft is supplying this area, 0 % stenosis tsites 01:43 PM Circumflex, Obtuse Marginal, Left Posterior Descending, and Left Posterolateral Coronary Arteries with 70 % stenosis. If graft is supplying this area, 0 % stenosis tsites 01:43 PM Right Coronary, Right Posterior Descending Arteries with Right Posterolateral and Acute Marginal branches with 100 % stenosis. If graft is supplying this area, 0 % stenosis tsites 01:43 PM Bolus angiogram of right Femoral complete: 2 ml/sec for a total of 4 mls tsites 01:45 PM Cardiothoracic surgeon consulted by physician tsites 01:45 PM Procedure completed at 13:45 12/04/2018 tsites 01:45 PM Did you address ANN flow and Dominance? Yes tsites 01:45 PM Coronary Dominance: right tsites 01:46 PM Sign out completed: Radiation Dose 370 mGy, 3978 cGy/cm2 Fluoro Time: 3.2 Isovue 370 - 200ml contrast 74 ml given by Berry Bianchi MD, FACC. Complications: None. The patient was discharged out of the lab systems analyst in stable condition. Cardiac Rehab Consult needed: NoConfirmed administered medications: Yes tsites 01:46 PM Isovue 370 - 200ml,1 Bottle(s) used. tsites 01:47 PM HR=68 bpm, BYQT=320/76 mmhg, SpO2=98.0 %, Resp=17 B/min 01:47 PM Arterial sheath pulled, Mynx closure device used and was Successful S/N. tsites 01:47 PM Estimated Blood Loss: minimal tsites 01:47 PM Post ECG NSR tsites 01:47 PM Post Blood Pressure 135/76 tsites 01:47 PM 13:47 Post Pulses Bilateral DP & PT 2+ tsites 01:47 PM Information taught Cardiac Cath and Mynx tsites 01:47 PM Education needs Procedure, Plan of Care, and Responsibilities of Patient in Care tsites 01:47 PM Learning barriers :None tsites 01:47 PM Education Methods Verbal tsites 01:47 PM Education evaluation Able to repeat information tsites 01:48 PM Site status No bleeding/hematoma - Rt Groin as reported by Sandra Connell RT (R) at 13:47 tsites 01:48 PM Opsite applied tsites 01:49 PM Report given to delfino WEEKS Pt taken to [address] [place] [address] Room #2. 13:49 tsites 01:50 PM Delay to floor No tsites 01:50 PM Patient out of room: 13:50 tsites 01:50 PM Family placed in consult room. tsites Complications Complication None Hemodynamics Pressures Site Systolic/A Wave Diastolic/V Wave Mean AO 121 76 95 LV 96 -5 2 LV 116 1 9 AO 113 61 81 Post Procedure Information Blood Pressure: 135/76 mmHg Rhythm: NSR Post procedural instructions were given Closure Device Time Device Success/Fail 12/04/2018 1:50:00 PM MynxGrip Successful Site Checks Time Location Status Staff Sheath In? Note 01:47 PM Rt Groin No bleeding/hematoma Sandra Connell RT (R) Pulses Time Site Pre-Procedure Post-Procedure Note Bilateral radial 2+ Bilateral DP 2+ 1:47:00 PM Bilateral DP & PT 2+ Updated by Sandra West RT (R) on 12/04/2018 1:54:35 PM RT Justino electronically signed on 12/04/2018 1:56:01 PM with status of Final
--- NOTE | 2018-12-04 15:56 | Cardiothoracic Consult Note ---
Date of Encounter: 12/04/18 Time of Encounter: 15:53 Assessment and Plan (1) CAD (coronary artery disease) Current Visit: No Status: Chronic The assessment and plan as outlined above was discussed with the patient and/or family members who expressed understanding and agreement. All questions were answered. The patient has triple-vessel disease and is a candidate for coronary artery bypass grafting. This would include a ODOM to LAD and a saphenous vein graft to the obtuse marginal branch #1 of the circumflex. The right coronary artery may or may not be graftable. I have stopped her Plavix and she would need to be off this for 5 days prior to surgery. It is okay to use a heparin drip and or baby aspirin. The procedure, its risks, benefits and alternatives were explained and she will consider. We will check a carotid duplex as she has not had one in 2 years. Qualifiers: Coronary Disease-Associated Artery/Lesion type: [place] artery [place] vs. transplanted heart: [place] heart Associated angina: with unspecified angina Qualified Code(s): I25.119 - Atherosclerotic heart disease of [place] coronary artery with unspecified angina pectoris - History of Present Illness History of present illness: Ms. Youssef is a 48 year old female The patient is a 48-year-old female who presented with chest pain. She states that she has had 4 previous myocardial infarctions and has had stents in the past. She has been on Plavix since admission, but was not taking it at home. Echocardiogram revealed ejection fraction of 55-60% with no significant valvular disease. She did have a positive stress test. Cardiac catheterization revealed triple-vessel disease. She had 100% right coronary artery lesion which filled by collaterals and may or may not be graftable. She had serial lesions in her LAD of 90 and 70%. She had a 70% lesion in the first obtuse marginal branch of her circumflex. Past medical history is notable for hypertension, diabetes controlled with diet, hyperlipidemia and retroperitoneal fibrosis. She occasionally takes steroids for this but has not taken any recently. She is status post left carotid endarterectomy in 2016. She had TIAs prior to this, but no recent TIAs or strokes. She is also had a hysterectomy and appendectomy. She has had ureteral stents for her retroperitoneal fibrosis. Social history. She lives in [place]. She smokes less than 1 pack of cigarettes per day. Rarely drinks alcohol. Family history is positive for coronary artery disease including a father who at age 42 of a myocardial infarction. Review of systems negative for saphenous vein varicosities or strippings. Past Med Surg Social Fam HX - Past Medical History Medical history: coronary artery disease, diabetes, hyperlipidemia, hypertension, myocardial infarction Additional medical history: [place] disease Psychiatric history: no psych history - Past Surgical History Surgical History: angioplasty/stent Additional surgical history: multiple urinary stent placement. wisdom teeth removal - Social History Smoking Status: Never smoker Packs per day: 1 Smokeless Tobacco Status: No Alcohol use: none Drug use: none - Family History Father Living Status: Hx Family Cardiac Disorders: Yes Mother Living Status: Hx Family Cardiac Disorders: Yes Hx Family Respiratory Disorders: Yes Medications and Allergies Aspirin [Lo-Dose Aspirin EC] 81 mg PO DAILY 01/17/18 [History] Allergy/AdvReac Type Severity Reaction Status Date / Time codeine AdvReac Vomiting Verified 12/01/18 07:44 anesthesia AdvReac Drowsy Uncoded 12/01/18 07:44 All Systems Review: The remainder of the systems were reviewed and are negative Physical Examination Vital Signs, Last 4 Hours Temp Pulse Resp BP Pulse Ox 12/04/18 15:51 69 13 126/76 98 12/04/18 14:53 78 15 112/79 97 12/04/18 14:35 67 11 116/74 97 12/04/18 14:13 97.7 F 66 8 133/80 98 Pupils are equal, round and reactive to light and accommodation. She is missing her upper teeth and has a denture. Neck is supple. Trachea in the midline. No thyromegaly or carotid bruits. She is status post left carotid endarterectomy. Lungs are clear to percussion and auscultation. Heart is in a regular rate and rhythm. No murmurs, gallops or rubs. Abdomen is benign. No tenderness, rebound or guarding. She is status post appendectomy and hysterectomy. Extremities without edema. No saphenous vein varicosities or strippings. Cranial nerves, motor and sensory intact. Results 12/04/18 04:50 12/04/18 04:50 Lab Results, Last 24 hours 12/04/18 12/04/18 04:50 04:50 WBC 10.1 Hgb 13.2 Hct 39.8 Plt Count 277 Sodium 139 Potassium 3.9 Chloride 107 Carbon Dioxide 25 BUN 17 Creatinine 0.80 Glucose 169 H Calcium 9.1 Magnesium 1.8 Consult Discharge Plan - Plan Referrals: Evangelina Mehta MD [Partnered Physician] - 12/04/18 1:00 pm
[2018-12-05 07:05] LABS: Hematocrit 41.2 % (35.3-44.9); Hemoglobin 13.6 g/dL (11.5-15.4); Immature Granulocytes % 0.4 % (0-4); Mean Corpuscular Hemoglobin 29.3 pg (28.0-33.3); Mean Corpuscular Volume 88.8 fL (83.0-100.0); Mean Platelet Volume 10.6 fL (9.4-12.4); Platelet Count 267 K/mcL (140-400); Red Blood Count 4.64 M/mcL (3.82-4.97); Red Cell Distribution Width 13.2 % (11.5-14.5); Segmented Neutrophils % 58.1 %
[2018-12-05 07:06] LABS: Basophils % 0.4 %; Eosinophils # 0.5 K/mcL (0.0-0.6); Eosinophils % 4.6 %; Lymphocytes # 2.9 K/mcL (0.6-4.6); Lymphocytes % 28.6 %; Monocytes # 0.8 K/mcL (0.0-1.3); Monocytes % 7.9 %; Neutrophils # 5.8 K/mcL (1.6-8.9)
[2018-12-05] MEDS: Insulin LISPRO 300 UNITS/3 ML VIAL SQ SCH ×4 (07:17→21:23)
[2018-12-05] MEDS: Aspirin 81 MG TAB.CHEW PO SCH (07:24)
[2018-12-05 07:29] LABS: BUN/Creatinine Ratio 19 (6-26); Blood Urea Nitrogen 16 mg/dL (6-20); Calcium 9.1 mg/dL (8.6-10.3); Carbon Dioxide 26 mEq/L (23-29); Chloride 105 mEq/L (98-107); Glucose 137 mg/dL (70-105); Magnesium 1.9 mg/dL (1.6-2.6); Osmolality,Calculated 285 (280-300); Potassium 4.1 mEq/L (3.5-5.1); Sodium 136 mEq/L (136-145); eGFR For Non-African Americans > 60 (> 60)
--- NOTE | 2018-12-05 08:53 | Cardiothoracic Progress Note ---
Date of Encounter: 12/05/18 Time of Encounter: 08:52 - Assessment and plan (1) CAD (coronary artery disease) Current Visit: No Status: Chronic Carotid duplex results are pending. Today is her first day off Plavix. We will tentatively schedule her surgery for next Saturday. At this point, she has no questions. Qualifiers: Coronary Disease-Associated Artery/Lesion type: [place] artery [place] vs. transplanted heart: [place] heart Associated angina: with unspecified angina Qualified Code(s): I25.119 - Atherosclerotic heart disease of [place] coronary artery with unspecified angina pectoris - Subjective Interval history: The patient has had no chest pain. Vital Signs, Last 4 Hours Temp Pulse Resp BP Pulse Ox 12/05/18 06:47 98.1 F 70 17 146/81 97 12/05/18 05:16 98.4 F 68 16 144/75 96 Clinical Data, last 8 Hours Output, Urine Amount 0 Weight 12/03/18 12/04/18 12/05/18 23:59 23:59 23:59 Weight 86.1 kg 88.1 kg 88.1 kg Lungs are clear to percussion and auscultation. Heart is in a normal sinus rhythm. - Labs 12/05/18 06:54 12/05/18 06:54 Lab Results, Last 24 hours 12/05/18 12/05/18 06:54 06:54 WBC 10.0 Hgb 13.6 Hct 41.2 Plt Count 267 Sodium 136 Potassium 4.1 Chloride 105 Carbon Dioxide 26 BUN 16 Creatinine 0.83 Glucose 137 H Calcium 9.1 Magnesium 1.9 Consult Discharge Plan - Plan Referrals: Evangelina Mehta MD [Partnered Physician] - 12/04/18 1:00 pm
[2018-12-05] MEDS: *HR* HYDROcodone/Acet 5/325 mg TABLET PO PRN ×3 (08:58→21:19)
--- NOTE | 2018-12-05 09:05 | Event Note ---
Date of Encounter: 12/05/18 Time of Encounter: 09:03 - Cardiology Event Note Patient was admitted with chest pain. [facility] yesterday with severe triple vessel disease. CT surgery note reviewed and plan for CABG tentatively next week. LVEF preserved. Cardiology will sign off, will arrange post CABG follow up. Re-co nsult if needed. Thank you.
[2018-12-05 09:48] LABS: Prothrombin Time 11.2 Seconds (9.4-12.1)
[2018-12-05 09:51] LABS: Activated Partial Thrombo Time 34.7 Seconds (26.0-36.0)
--- NOTE | 2018-12-05 10:41 | Internal Med Progress Note ---
Hospitalist Progress Note - Encounter Date of Encounter: 12/05/18 Time of Encounter: 08:15 - Subjective Interval History: Patient denies any recurrence of chest pain, shortness of breath, nausea/vomiting, or diaphoresis. No fever/chills - Exam Vitals: Temp Pulse Resp BP Pulse Ox 98.1 F 70 17 146/81 97 12/05/18 06:47 12/05/18 06:47 12/05/18 06:47 12/05/18 06:47 12/05/18 06:47 Exam: Gen.: Alert and oriented 3, no acute distress Heart: Regular rate and rhythm, no murmurs Lungs: Clear to auscultation bilaterally, no rales, rhonchi, wheezes Abdomen: Soft, nontender, nondistended. Normoactive bowel sounds Neuro: CN 2-12 intact, no focal deficits. - Assessment and Plan (1) CAD (coronary artery disease) Current Visit: Yes Status: Acute Assessment and Plan: underwent LHC yesterday which showed 100% pRCA stenosis with collaterals, pLAD 90%, mid-distal LAD 70%, LCX 70% Cardiothoracic input appreciated, for CABG next week after being off on plavix f or 5 days carotid doppler in preparation for OR continue ASA, statin, bb (2) Abnormal stress test Current Visit: Yes Status: Acute Assessment and Plan: as above (3) Chest pain Current Visit: Yes Status: Acute Assessment and Plan: as above (4) HTN (hypertension) Current Visit: Yes Status: Chronic Assessment and Plan: Blood pressure stable. Continue home medications. (5) HLD (hyperlipidemia) Current Visit: Yes Status: Acute Assessment and Plan: Continue statin therapy. (6) Tobacco dependence Current Visit: No Status: Acute Assessment and Plan: Encourage cessation (7) Diabetes mellitus Current Visit: Yes Status: Chronic Assessment and Plan: A1c 7.2 low dose sliding scale metformin upon discharge (8) DVT prophylaxis Current Visit: Yes Status: Acute Assessment and Plan: EPCD - Time Spent with Patient Total time spent is greater than 50% in coordination of care (as documented) at patient's floor/unit and/or counseling patient: Plan of Care Discussed with: patient (discussed with cardiothoracic surgery and cardiology) Internal Medicine: Result - Labs CBC & Chem 7: 12/05/18 06:54 12/05/18 06:54 Labs: Short CBC 12/05/18 Range/Units 06:54 WBC 10.0 (4.3-11.1) K/mcL Hgb 13.6 (11.5-15.4) g/dL Hct 41.2 (35.3-44.9) % Plt Count 267 (140-400) K/mcL Neutrophils # 5.8 (1.6-8.9) K/mcL BMP 12/05/18 06:54 Sodium 136 Potassium 4.1 Chloride 105 Carbon Dioxide 26 BUN 16 Creatinine 0.83 Glucose 137 H Calcium 9.1 - ABG Interpretation ABG results: PT/INR, D-dimer PT 11.2 Seconds (9.4-12.1) 12/05/18 09:21 Consult Discharge Plan - Plan Referrals: Evangelina Mehta MD [Partnered Physician] - (1) CAD (coronary artery disease) Qualifiers: Coronary Disease-Associated Artery/Lesion type: [place] artery [place] vs. transplanted heart: [place] heart Associated angina: with unspecified angina Qualified Code(s): I25.119 - Atherosclerotic heart disease of [place] coronary artery with unspecified angina pectoris (3) Chest pain Qualifiers: Chest pain type: unspecified Qualified Code(s): R07.9 - Chest pain, unspecified (4) HTN (hypertension) Qualifiers: Hypertension type: essential hypertension Qualified Code(s): I10 - Essential (primary) hypertension (5) HLD (hyperlipidemia) Qualifiers: Hyperlipidemia type: unspecified Qualified Code(s): E78.5 - Hyperlipidemia, unspecified (7) Diabetes mellitus Qualifiers: Diabetes mellitus type: type 2 Diabetes mellitus prison insulin use: without 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
[2018-12-05 10:44] LABS: Estimated Average Glucose 163 mg/dl; Hemoglobin A1C 7.3 %
[2018-12-05 11:20] LABS: Bilirubin,Urine Negative (Negative); Blood,Urine Negative (Negative); Clarity,Urine Clear (Clear); Color,Urine Yellow (Yellow); Glucose,Urine (UA) Normal (Normal); Ketones,Urine Negative (Negative); Leukocyte Esterase,Urine Small (Negative); Nitrite,Urine Negative (Negative); Protein,Urine Negative (Neg-Trace); Specific Gravity,Urine 1.017 (1.010-1.025); Urobilinogen,Urine Normal (Normal)
[2018-12-05 11:28] LABS: Bacteria,Urine Many per hpf (None-Few); Hyaline Casts,Urine None Seen per lpf (None-Few); RBC,Urine 0-3 per hpf (0-3); Squamous Epithelial Cell,Urine Many per lpf (None-Few)
[2018-12-05] MEDS: Acetaminophen 325 MG TABLET PO PRN (19:04)
[2018-12-06] MEDS: *HR* HYDROcodone/Acet 5/325 mg TABLET PO PRN ×2 (04:24→18:22)
[2018-12-06 04:56] LABS: Basophils # 0.1 K/mcL (0.0-0.2); Basophils % 0.5 %; Eosinophils # 0.4 K/mcL (0.0-0.6); Eosinophils % 3.6 %; Hematocrit 41.4 % (35.3-44.9); Immature Granulocytes % 0.4 % (0-4); Lymphocytes # 4.4 K/mcL (0.6-4.6); Lymphocytes % 39.1 %; Mean Corpuscular HGB Conc 31.4 g/dL (31.6-35.5); Mean Corpuscular Hemoglobin 28.1 pg (28.0-33.3); Mean Corpuscular Volume 89.4 fL (83.0-100.0); Mean Platelet Volume 11.1 fL (9.4-12.4); Monocytes # 0.9 K/mcL (0.0-1.3); Monocytes % 7.9 %; Neutrophils # 5.5 K/mcL (1.6-8.9); Platelet Count 272 K/mcL (140-400); Red Blood Count 4.63 M/mcL (3.82-4.97); Segmented Neutrophils % 48.5 %
[2018-12-06 05:16] LABS: BUN/Creatinine Ratio 24 (6-26); Blood Urea Nitrogen 19 mg/dL (6-20); Calcium 9.2 mg/dL (8.6-10.3); Carbon Dioxide 26 mEq/L (23-29); Chloride 106 mEq/L (98-107); Glucose 176 mg/dL (70-105); Magnesium 1.8 mg/dL (1.6-2.6); Osmolality,Calculated 291 (280-300); Potassium 3.8 mEq/L (3.5-5.1); Sodium 137 mEq/L (136-145); eGFR For Non-African Americans > 60 (> 60)
[2018-12-06] MEDS: Insulin LISPRO 300 UNITS/3 ML VIAL SQ SCH ×4 (07:52→22:23)
[2018-12-06] MEDS: Aspirin 81 MG TAB.CHEW PO SCH (07:53)
--- NOTE | 2018-12-06 09:26 | Cardiothoracic Progress Note ---
Date of Encounter: 12/06/18 Time of Encounter: 09:22 - Assessment and plan (1) CAD (coronary artery disease) Current Visit: Yes Status: Acute The patient is awaiting Plavix washout and is scheduled for surgery on Saturday. Operative consent was obtained. Risks of surgery include , infection, bleeding, stroke, myocardial infarction, clots around the heart, renal or respiratory failure, acute or chronic graft closure, phrenic nerve injury and sternal dehiscence. The procedure, its risks, benefits and alternatives were explained and she does wish to proceed. She has no questions. Qualifiers: Coronary Disease-Associated Artery/Lesion type: [place] artery [place] vs. transplanted heart: [place] heart Associated angina: with unspecified angina Qualified Code(s): I25.119 - Atherosclerotic heart disease of [place] coronary artery with unspecified angina pectoris - Subjective Interval history: The patient has had no chest pain and has no complaints. Vital Signs, Last 4 Hours Temp Pulse Resp BP Pulse Ox 12/06/18 07:34 97.7 F 57 16 118/73 93 Clinical Data, last 8 Hours Output, Urine Amount 0 Weight 12/04/18 12/05/18 12/06/18 23:59 23:59 23:59 Weight 88.1 kg 88.1 kg 88.7 kg Lungs are clear to percussion and auscultation. Heart is in a regular rate and rhythm. - Labs 12/06/18 04:07 12/06/18 04:07 Lab Results, Last 24 hours 12/05/18 12/06/18 12/06/18 09:21 04:07 04:07 WBC 11.4 H Hgb 13.0 Hct 41.4 Plt Count 272 INR 1.0 APTT 34.7 Sodium 137 Potassium 3.8 Chloride 106 Carbon Dioxide 26 BUN 19 Creatinine 0.79 Glucose 176 H Calcium 9.2 Magnesium 1.8 Consult Discharge Plan - Plan Referrals: Evangelina Mehta MD [Partnered Physician] -
--- NOTE | 2018-12-06 10:27 | Internal Med Progress Note ---
Hospitalist Progress Note - Encounter Date of Encounter: 12/06/18 Time of Encounter: 08:15 - Subjective Interval History: No acute events overnight. Awaiting for CABG tentatively scheduled on Saturday next week. Patient denies any recurrence of chest pain, shortness of breath, nausea/vomiting, or diaphoresis. No fever/chills - Exam Vitals: Temp Pulse Resp BP Pulse Ox 97.7 F 57 16 118/73 93 12/06/18 07:34 12/06/18 07:34 12/06/18 07:34 12/06/18 07:34 12/06/18 07:34 Exam: Gen.: Alert and oriented 3, no acute distress Heart: Regular rate and rhythm, no murmurs Lungs: Clear to auscultation bilaterally, no rales, rhonchi, wheezes Abdomen: Soft, nontender, nondistended. Normoactive bowel sounds Neuro: CN 2-12 intact, no focal deficits. - Assessment and Plan (1) CAD (coronary artery disease) Current Visit: Yes Status: Acute Assessment and Plan: underwent LHC yesterday which showed 100% pRCA stenosis with collaterals, pLAD 90%, mid-distal LAD 70%, LCX 70% Cardiothoracic input appreciated, for CABG next week after being off on plavix for 5 days carotid doppler done, pending offical report continue ASA, statin, bb (2) Abnormal stress test Current Visit: Yes Status: Acute Assessment and Plan: as above (3) Chest pain Current Visit: Yes Status: Acute Assessment and Plan: as above (4) HTN (hypertension) Current Visit: Yes Status: Chronic Assessment and Plan: Blood pressure stable. Continue home medications. (5) HLD (hyperlipidemia) Current Visit: Yes Status: Acute Assessment and Plan: Continue statin therapy. (6) Tobacco dependence Current Visit: No Status: Acute Assessment and Plan: Encourage cessation (7) Diabetes mellitus Current Visit: Yes Status: Chronic Assessment and Plan: A1c 7.2 low dose sliding scale metformin upon discharge (8) DVT prophylaxis Current Visit: Yes Status: Acute Assessment and Plan: EPCD - Time Spent with Patient Total time spent is greater than 50% in coordination of care (as documented) at patient's floor/unit and/or counseling patient: Plan of Care Discussed with: patient Internal Medicine: Result - Labs CBC & Chem 7: 12/06/18 04:07 12/06/18 04:07 Labs: Short CBC 12/06/18 Range/Units 04:07 WBC 11.4 H (4.3-11.1) K/mcL Hgb 13.0 (11.5-15.4) g/dL Hct 41.4 (35.3-44.9) % Plt Count 272 (140-400) K/mcL Neutrophils # 5.5 (1.6-8.9) K/mcL BMP 12/06/18 04:07 Sodium 137 Potassium 3.8 Chloride 106 Carbon Dioxide 26 BUN 19 Creatinine 0.79 Glucose 176 H Calcium 9.2 Urine 12/05/18 Range/Units 11:00 Urine Color Yellow (Yellow) Urine Clarity Clear (Clear) Urine pH 7.0 (5.0-8.0) pH Units Ur Specific [place] 1.017 (1.010-1.025) Urine Protein Negative (Neg-Trace) mg/dL Urine Glucose (UA) Normal (Normal) mg/dL - ABG Interpretation ABG results: PT/INR, D-dimer PT 11.2 Seconds (9.4-12.1) 12/05/18 09:21 Consult Discharge Plan - Plan Referrals: Evangelina Mehta MD [Partnered Physician] - (1) CAD (coronary artery disease) Qualifiers: Coronary Disease-Associated Artery/Lesion type: [place] artery [place] vs. transplanted heart: [place] heart Associated angina: with unspecified angina Qualified Code(s): I25.119 - Atherosclerotic heart disease of [place] coronary artery with unspecified angina pectoris (3) Chest pain Qualifiers: Chest pain type: unspecified Qualified Code(s): R07.9 - Chest pain, uns pecified (4) HTN (hypertension) Qualifiers: Hypertension type: essential hypertension Qualified Code(s): I10 - Essential (primary) hypertension (5) HLD (hyperlipidemia) Qualifiers: Hyperlipidemia type: unspecified Qualified Code(s): E78.5 - Hyperlipidemia, unspecified (7) Diabetes mellitus Qualifiers: Diabetes mellitus type: type 2 Diabetes mellitus rodent exterminator insulin use: without rodent exterminator use Diabetes mellitus complication status: without complication Qualified Code(s): E11.9 - Type 2 diabetes mellitus without complications
[2018-12-06] MEDS ORDERED: *HR* Promethazine 25 MG/ML VIAL IVP PRN (21:04)
[2018-12-06] MEDS: *HR* OxyCODONE Immed Rel 5 MG TABLET PO PRN (22:21)
[2018-12-07] MEDS: *HR* HYDROcodone/Acet 5/325 mg TABLET PO PRN (05:01)
[2018-12-07] MEDS: Insulin LISPRO 300 UNITS/3 ML VIAL SQ SCH ×4 (08:19→21:40)
[2018-12-07] MEDS: Aspirin 81 MG TAB.CHEW PO SCH (08:19)
--- NOTE | 2018-12-07 09:12 | Cardiothoracic Progress Note ---
Date of Encounter: 12/07/18 Time of Encounter: 09:11 - Assessment and plan (1) CAD (coronary artery disease) Current Visit: Yes Status: Acute I will order a Dulcolax suppository for mild constipation. The patient is scheduled for surgery on Saturday. Qualifiers: Coronary Disease-Associated Artery/Lesion type: [place] artery [place] vs. transplanted heart: [place] heart Associated angina: with unspecified angina Qualified Code(s): I25.119 - Atherosclerotic heart disease of [place] coronary artery with unspecified angina pectoris - Subjective Interval history: The patient has no chest pain. She complains of mild constipation and requests a suppository. Vital Signs, Last 4 Hours Temp Pulse Resp BP Pulse Ox 12/07/18 07:14 98.4 F 65 18 106/62 95 Weight 12/05/18 12/06/18 12/07/18 23:59 23:59 23:59 Weight 88.1 kg 89.2 kg Lungs are clear to percussion and auscultation. Heart is in a regular rate and rhythm. - Labs 12/06/18 04:07 12/06/18 04:07 Consult Discharge Plan - Plan Referrals: Evangelina Mehta MD [Partnered Physician] -
[2018-12-07] MEDS: Bisacodyl 10 MG RECTAL SUPPOSITORY RC PRN (10:38)
--- NOTE | 2018-12-07 10:56 | Internal Med Progress Note ---
Hospitalist Progress Note - Encounter Date of Encounter: 12/07/18 Time of Encounter: 08:15 - Subjective Interval History: Pt is complaining of severe R groin pain. NOt able to feel any underlying mass. Denies any R LE weakness/numbness. Awaiting for CABG tentatively scheduled on Saturday next week. Patient denies any recurrence of chest pain, shortness of breath, nausea/vomiting, or diaphoresis. No fever/chills - Exam Vitals: Temp Pulse Resp BP Pulse Ox 98.4 F 65 18 106/62 95 12/07/18 07:14 12/07/18 07:14 12/07/18 07:14 12/07/18 07:14 12/07/18 07:14 Exam: Gen.: Alert and oriented 3, no acute distress Heart: Regular rate and rhythm, no murmurs Lungs: Clear to auscultation bilaterally, no rales, rhonchi, wheezes Abdomen: Soft. Tender on R groin. Normoactive bowel sounds Pulse: R femoral and dorsalis pedis palpable. No pulsatile mass appreciated on R groin Neuro: CN 2-12 intact, no focal deficits. - Assessment and Plan (1) CAD (coronary artery disease) Current Visit: Yes Status: Acute Assessment and Plan: underwent LHC on 12/04 which showed 100% pRCA stenosis with collaterals, pLAD 90%, mid-distal LAD 70%, LCX 70% Cardiothoracic input appreciated, for CABG next Sat after being off on plavix for 5 days carotid doppler: R Chris with 40-59% stenosis, L Chris 60-79% developed R groin pain and tenderness, unable to appreciate any pulsatile mass. Neurovascularly intact distally. Check US groin continue ASA, statin, bb (2) Abnormal stress test Current Visit: Yes Status: Acute Assessment and Plan: as above (3) Chest pain Current Visit: Yes Status: Acute Assessment and Plan: as above (4) HTN (hypertension) Current Visit: Yes Status: Chronic Assessment and Plan: Blood pressure stable. Continue home medications. (5) HLD (hyperlipidemia) Current Visit: Yes Status: Acute Assessment and Plan: Continue statin therapy. (6) Tobacco dependence Current Visit: No Status: Acute Assessment and Plan: Encourage cessation (7) Diabetes mellitus Current Visit: Yes Status: Chronic Assessment and Plan: A1c 7.2 low dose sliding scale metformin upon discharge (8) DVT prophylaxis Current Visit: Yes Status: Acute Assessment and Plan: EPCD - Time Spent with Patient Total time spent is greater than 50% in coordination of care (as documented) at patient's floor/unit and/or counseling patient: Plan of Care Discussed with: patient Internal Medicine: Result - Labs CBC & Chem 7: 12/06/18 04:07 12/06/18 04:07 - ABG Interpretation ABG results: PT/INR, D-dimer PT 11.2 Seconds (9.4-12.1) 12/05/18 09:21 Consult Discharge Plan - Plan Referrals: Evangelina Mehta MD [Partnered Physician] - (web request sent on 12/07/18) ___ (1) CAD (coronary artery disease) Qualifiers: Coronary Disease-Associated Artery/Lesion type: [place] artery [place] vs. transplanted heart: [place] heart Associated angina: with unspecified angina Qualified Code(s): I25.119 - Atherosclerotic heart disease of [place] coronary artery with unspecified angina pectoris (3) Chest pain Qualifiers: Chest pain type: unspecified Qualified Code(s): R07.9 - Chest pain, unspecified (4) HTN (hypertension) Qualifiers: Hypertension type: essential hypertension Qualified Code(s): I10 - Essential (primary) hypertension (5) HLD (hyperlipidemia) Qualifiers: Hyperlipidemia type: unspecified Qualified Code(s): E78.5 - Hyperlipidemia, unspecified (7) Diabetes mellitus Qualifiers: Diabetes mellitus type: type 2 Diabetes mellitus usp insulin use: without end matcher use Diabetes mellitus complication status: without complication Qualified Code(s): E11.9 - Type 2 diabetes mellitus without complications
[2018-12-07] MEDS: *HR* OxyCODONE Immed Rel 5 MG TABLET PO PRN (20:36)
[2018-12-08] MEDS: *HR* OxyCODONE Immed Rel 5 MG TABLET PO PRN ×3 (05:24→17:46)
--- NOTE | 2018-12-08 07:02 | Cardiothoracic Progress Note ---
Date of Encounter: 12/08/18 Time of Encounter: 07:00 - Assessment and plan (1) CAD (coronary artery disease) Current Visit: Yes Status: Acute The patient is scheduled for surgery on Saturday and has no questions. Qualifiers: Coronary Disease-Associated Artery/Lesion type: [place] artery [place] vs. transplanted heart: [place] heart Associated angina: with unspecified angina Qualified Code(s): I25.119 - Atherosclerotic heart disease of [place] coronary artery with unspecified angina pectoris - Subjective Interval history: The patient has had no chest pain. She complains of pain in the area of her r ight groin where the cardiac catheterization was done. Vital Signs, Last 4 Hours Temp Pulse Resp BP Pulse Ox 12/08/18 04:27 98.9 F 80 17 123/75 94 Weight 12/06/18 12/07/18 12/08/18 23:59 23:59 23:59 Weight 89.2 kg 89 kg Lungs are clear to percussion and auscultation. Heart is in a regular rate and rhythm. She does have a small hard area in the area of her right groin c atheter. This either represents small clot or scar tissue. There is no fluctuance and no surrounding cellulitis. No pulsation. - Labs 12/06/18 04:07 12/06/18 04:07 Consult Discharge Plan - Plan Referrals: Evangelina Mehta MD [Partnered Physician] - (web request sent on 12/07/18)
[2018-12-08] MEDS: Insulin LISPRO 300 UNITS/3 ML VIAL SQ SCH ×4 (08:05→21:25)
[2018-12-08] MEDS: Ondansetron 4 MG/2 ML VIAL IVP PRN (09:43)
[2018-12-08] MEDS: Aspirin 81 MG TAB.CHEW PO SCH (09:43)
--- NOTE | 2018-12-08 11:22 | Internal Med Progress Note ---
Hospitalist Progress Note - Encounter Date of Encounter: 12/08/18 Time of Encounter: 08:30 - Subjective Interval History: R groin pain largely unchanged. Denies any R LE weakness/numbness. Awaiting for CABG tentatively scheduled on Saturday. Patient denies any recurrence of chest pain, shortness of breath, nausea/vomiting, or diaphoresis. No fever/chills - Exam Vitals: Temp Pulse Resp BP Pulse Ox 98.6 F 61 16 136/73 93 12/08/18 07:18 12/08/18 07:18 12/08/18 07:18 12/08/18 07:18 12/08/18 07:18 Exam: Gen.: Alert and oriented 3, no acute distress Heart: Regular rate and rhythm, no murmurs Lungs: Clear to auscultation bilaterally, no rales, rhonchi, wheezes Abdomen: Soft. Tender on R groin. Normoactive bowel sounds Pulse: R femoral and dorsalis pedis palpable. No pulsatile mass appreciated on R groin Neuro: CN 2-12 intact, no focal deficits. - Assessment and Plan (1) CAD (coronary artery disease) Current Visit: Yes Status: Acute Assessment and Plan: underwent LHC on 12/04 which showed 100% pRCA stenosis with collaterals, pLAD 90%, mid-distal LAD 70%, LCX 70% Cardiothoracic input appreciated, for CABG next Sat after being off on plavix fo r 5 days carotid doppler: R Chris with 40-59% stenosis, L Crhis 60-79% developed R groin pain and tenderness, unable to appreciate any pulsatile mass. Neurovascularly intact distally. Check US groin continue ASA, statin, bb (2) Abnormal stress test Current Visit: Yes Status: Acute Assessment and Plan: as above (3) Chest pain Current Visit: Yes Status: Acute Assessment and Plan: as above (4) HTN (hypertension) Current Visit: Yes Status: Chronic Assessment and Plan: Blood pressure stable. Continue home medications. (5) HLD (hyperlipidemia) Current Visit: Yes Status: Acute Assessment and Plan: Continue statin therapy. (6) Tobacco dependence Current Visit: No Status: Acute Assessment and Plan: Encourage cessation (7) Diabetes mellitus Current Visit: Yes Status: Chronic Assessment and Plan: A1c 7.2 low dose sliding scale metformin upon discharge (8) DVT prophylaxis Current Visit: Yes Status: Acute Assessment and Plan: EPCD - Time Spent with Patient Total time spent is greater than 50% in coordination of care (as documented) at patient's floor/unit and/or counseling patient: Plan of Care Discussed with: patient Internal Medicine: Result - Labs CBC & Chem 7: 12/06/18 04:07 12/06/18 04:07 - ABG Interpretation ABG results: PT/INR, D-dimer PT 11.2 Seconds (9.4-12.1) 12/05/18 09:21 Consult Discharge Plan - Plan Referrals: Evangelina Mehta MD [Partnered Physician] - (web request sent on 12/07/18) (1) CAD (coronary artery disease) Qualifiers: Coronary Disease-Associated Artery/Lesion type: [place] artery [place] vs. transplanted heart: [place] heart Associated angina: with unspecified angina Qualified Code(s): I25.119 - Atherosclerotic heart disease of [place] coronary artery with unspecified angina pectoris (3) Chest pain Qualifiers: Chest pain type: unspecified Qualified Code(s): R07.9 - Chest pain, unspecified (4) HTN (hypertension) Qualifiers: Hypertension type: essential hypertension Qualified Code(s): I10 - Essential (primary) hypertension (5) HLD (hyperlipidemia) Qualifiers: Hyperlipidemia type: unspecified Qualified Code(s): E78.5 - Hyperlipidemia, unspecified (7) Diabetes mellitus Qualifiers: Diabetes mellitus type: type 2 Diabetes mellitus snf insulin use: without intermediate card tender use Diabetes mellitus complication status: without complication Qualified Code(s): E11.9 - Type 2 diabetes mellitus without complications
--- NOTE | 2018-12-09 07:03 | Cardiothoracic Progress Note ---
Date of Encounter: 12/09/18 Time of Encounter: 07:01 - Assessment and plan (1) CAD (coronary artery disease) Current Visit: Yes Status: Acute The patient is scheduled for open heart surgery tomorrow. She has no questions. She is at somewhat increased risk of stroke due to her carotid disease. At this point, her carotid disease will be treated with a baby aspirin a day. Qualifiers: Coronary Disease-Associated Artery/Lesion type: [place] artery [place] vs. transplanted heart: [place] heart Associated angina: with unspecified angina Qualified Code(s): I25.119 - Atherosclerotic heart disease of [place] coronary artery with unspecified angina pectoris - Subjective Interval history: The patient has had no chest pain. The sore spot in her right groin cardiac catheterization site is somewhat improved. Carotid duplex revealed a right 40- 59% block and a left 60-79% blocked. Vital Signs, Last 4 Hours Temp Pulse Resp BP Pulse Ox 12/09/18 03:31 99.0 F 75 16 119/70 94 Weight 12/07/18 12/08/18 12/09/18 23:59 23:59 23:59 Weight 89 kg 89.528 kg Lungs are clear to percussion and auscultation. Heart is in a regular rate and rhythm. - Labs 12/06/18 04:07 12/06/18 04:07 Consult Discharge Plan - Plan Referrals: Evangelina Mehta MD [Partnered Physician] - (web request sent on 12/07/18)
[2018-12-09] MEDS: *HR* HYDROcodone/Acet 5/325 mg TABLET PO PRN ×2 (07:50→13:27)
[2018-12-09] MEDS: Aspirin 81 MG TAB.CHEW PO SCH (07:50)
[2018-12-09] MEDS: Ondansetron 4 MG/2 ML VIAL IVP PRN ×2 (07:50→22:17)
[2018-12-09] MEDS: Insulin LISPRO 300 UNITS/3 ML VIAL SQ SCH ×4 (08:00→22:18)
--- NOTE | 2018-12-09 09:50 | Internal Med Progress Note ---
Hospitalist Progress Note - Encounter Date of Encounter: 12/09/18 Time of Encounter: 08:00 - Subjective Interval History: No acute events overnight. Was emotional about operation tomorrow. Patient denies any chest pain, shortness of breath, nausea/vomiting, or diaphoresis. No fever/chills - Exam Vitals: Temp Pulse Resp BP Pulse Ox 98.5 F 69 16 133/77 95 12/09/18 07:13 12/09/18 07:13 12/09/18 07:13 12/09/18 07:13 12/09/18 07:13 Exam: Gen.: Alert and oriented 3, no acute distress Heart: Regular rate and rhythm, no murmurs Lungs: Clear to auscultation bilaterally, no rales, rhonchi, wheezes Abdomen: Soft. Tender on R groin. Normoactive bowel sounds Pulse: R femoral and dorsalis pedis palpable. No pulsatile mass appreciated on R groin Neuro: CN 2-12 intact, no focal deficits. - Assessment and Plan (1) CAD (coronary artery disease) Current Visit: Yes Status: Acute Assessment and Plan: underwent LHC on 12/04 which showed 100% pRCA stenosis with collaterals, pLAD 90%, mid-distal LAD 70%, LCX 70% carotid doppler: R Chris with 40-59% stenosis, L Chris 60-79% developed R groin pain and tenderness, unable to appreciate any pulsatile mass. Neurovascularly intact distally. no evidence of pseudoaneurysm on imaging continue ASA, statin, bb Cardiothoracic input appreciated, for CABG tomorrow (2) Abnormal stress test Current Visit: Yes Status: Acute Assessment and Plan: as above (3) Chest pain Current Visit: Yes Status: Acute Assessment and Plan: as above (4) HTN (hypertension) Current Visit: Yes Status: Chronic Assessment and Plan: Blood pressure stable. Continue home medications. (5) HLD (hyperlipidemia) Current Visit: Yes Status: Acute Assessment and Plan: Continue statin therapy. (6) Tobacco dependence Current Visit: No Status: Acute Assessment and Plan: Encouraged cessation (7) Diabetes mellitus Current Visit: Yes Status: Chronic Assessment and Plan: A1c 7.2 low dose sliding scale metformin upon discharge (8) DVT prophylaxis Current Visit: Yes Status: Acute Assessment and Plan: EPCD - Time Spent with Patient Total time spent is greater than 50% in coordination of care (as documented) at patient's floor/unit and/or counseling patient: Plan of Care Discussed with: patient Internal Medicine: Result - Labs CBC & Chem 7: 12/06/18 04:07 12/06/18 04:07 - ABG Interpretation ABG results: PT/INR, D-dimer PT 11.2 Seconds (9.4-12.1) 12/05/18 09:21 Consult Discharge Plan - Plan Referrals: Evangelina Mehta MD [Partnered Physician] - (web request sent on 12/07/18) _ (1) CAD (coronary artery disease) Qualifiers: Coronary Disease-Associated Artery/Lesion type: [place] artery [place] vs. transplanted heart: [place] heart Associated angina: with unspecified angina Qualified Code(s): I25.119 - Atherosclerotic heart disease of [place] coronary artery with unspecified angina pectoris (3) Chest pain Qualifiers: Chest pain type: unspecified Qualified Code(s): R07.9 - Chest pain, unspecified (4) HTN (hypertension) Qualifiers: Hypertension type: essential hypertension Qualified Code(s): I10 - Essential (primary) hypertension (5) HLD (hyperlipidemia) Qualifiers: Hyperlipidemia type: unspecified Qualified Code(s): E78.5 - Hyperlipidemia, unspecified (7) Diabetes mellitus Qualifiers: Diabetes mellitus type: type 2 Diabetes mellitus usp insulin use: without predatory animal exterminator use Diabetes mellitus complication status: without com plication Qualified Code(s): E11.9 - Type 2 diabetes mellitus without comp lications
--- NOTE | 2018-12-09 14:31 | Event Note ---
Date of Encounter: 12/09/18 Time of Encounter: 14:30 - Cardiology Event Note Asked by Dr. Zarco to eval R groin site. R groin tender to palpation. Approximately nickel sized slightly pulsatile mass noted. R DP and PT pulses 1+ palp, warm to touch. No bleeding no ecchymosis. Closure Device: MynxGrip. Imaging from yesterday: Impressions: The right distal external iliac, common femoral and proximal superficial femoral artery are patent. No pseudoaneurysm detected. Clinically appear stable, consider repeat imaging if develops any significant worsening symptoms.
[2018-12-09] MEDS ORDERED: Insulin Human Regular 100 UNIT in 0.9 % Sodium Chloride 100 ML IV PRN (16:00)
[2018-12-09] MEDS ORDERED: Norepinephrine 4 MG in D5% in Water 250 ML IVC PRN ×2 (16:00)
[2018-12-09] MEDS ORDERED: Dextrose 50 % in Water (Vial) 30 ML, Sodium Bicarbonate 20 MEQ, Potassium Chloride 15 M... TH ONE (16:00)
[2018-12-09] MEDS: *HR* OxyCODONE Immed Rel 5 MG TABLET PO PRN (22:12)
[2018-12-09] MEDS: Chlorhexidine Rinse 15 ML MOUTHWASH MM SCH (22:13)
[2018-12-10] MEDS ORDERED: Heparin 15,000 UNIT in 0.9 % Sodium Chloride 500 ML IV ONE ×4 (02:00)
[2018-12-10] MEDS ORDERED: Dextrose 50 % in Water (Vial) 30 ML, Sodium Bicarbonate 20 MEQ, Lidocaine 1% 5 ML, Insu... TH ONE ×6 (02:00)
[2018-12-10] MEDS ORDERED: Dextrose 50 % in Water (Vial) 30 ML, Sodium Bicarbonate 20 MEQ, Potassium Chloride 15 M... TH ONE (02:00)
[2018-12-10] MEDS: Chlorhexidine Rinse 15 ML MOUTHWASH MM SCH ×2 (05:42→21:28)
[2018-12-10] MEDS: Bisacodyl 10 MG RECTAL SUPPOSITORY RC PRN (05:44)
[2018-12-10] MEDS ORDERED: Vancomycin 1,000 MG, Sodium Chloride IRRigation 1,000 ML IR ONE (06:00)
[2018-12-10] MEDS ORDERED: Aspirin 81 MG TAB.CHEW PO ONE (06:00)
[2018-12-10] MEDS ORDERED: NiCARdipine 2.5 MG/10 ML Syringe IVPB ONE (06:18)
[2018-12-10] MEDS ORDERED: Nitroglycerin 25 MG/250 ML INFUS..BTL IVC ONE (06:18)
[2018-12-10] MEDS ORDERED: *HR* Rocuronium Bromide 50 MG/5 ML VIAL ONE (06:22)
[2018-12-10] MEDS ORDERED: *HR* PHENYLEPHRINE 1,000 MCG/10 ML SYRINGE IVP ONE (06:22)
[2018-12-10] MEDS ORDERED: *HR* Etomidate 20 MG/10 ML AMPUL IVP ONE (06:23)
[2018-12-10] MEDS ORDERED: Famotidine 20 MG/2 ML VIAL ONE (06:23)
[2018-12-10] MEDS ORDERED: Tranexamic Acid 1,000 MG/10 ML VIAL ONE ×2 (06:25→10:25)
[2018-12-10] MEDS ORDERED: Protamine Sulfate 250 MG/25 ML VIAL IVP ONE (06:25)
[2018-12-10] MEDS ORDERED: *HR* Midazolam HCl 5 MG/5 ML VIAL IVP ONE (06:27)
[2018-12-10] MEDS ORDERED: *HR* FentaNYL (PF) 1,000 MCG/20 ML VIAL ONE (06:27)
--- NOTE | 2018-12-10 06:40 | Anesthesia Evaluation PreOp ---
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) Anesthesia History: Past Anesthesia (urine stents, wisdom teeth, LIVIER), Problems (slow awakening and PONV) : No Alcohol Use: none Drug use: none Medications and Allergies Aspirin [Lo-Dose Aspirin EC] 81 mg PO DAILY 01/17/18 [History] Allergy/AdvReac Type Severity Reaction Status Date / Time codeine AdvReac Vomiting Verified 12/01/18 07:44 anesthesia AdvReac Drowsy Uncoded 12/01/18 07:44 - Meds/Allergy Pre-op Review Medications Reviewed: Yes Allergies Reviewed: Yes Beta Blockers on Current Med List: Yes If Beta Blockers taken, Date/Time (Last Dose taken): today 0542 Anesthesia Results - Labs 12/10/18 05:52 12/10/18 05:52 - Imaging Additional studies: cath: Indications: Abnormal Test - Stress Suspected CAD Impressions: There is severe three vessel coronary artery disease with long 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 Aggressive risk factor modification. Suggest patient have elective coronary artery bypass surgery - intermediate SYNTAX score LV Ventriculography Ejection Method: LV Gram Ejection Fraction: 70% Wall Motion: [place]ONQU[place]O Anterobasal Severe Hypokinesis Anterolateral Severe Hypokinesis Apical: Severe Hypokinesis Inferoapical Severe Hypokinesis Inferobasal Severe Hypokinesis Coronary Dominance: right Lesion Findings/Interventions No left Main * Left Anterior Descending There is a 90% stenosis in the Proximal LAD. There is a 70% stenosis in the Mid LAD. * Circumflex There is a 20% stenosis in the Proximal Circumflex. There is a 50% stenosis in the Mid Circumflex. There is a 70% stenosis in the 1st Marginal. * Right Coronary Artery There is a 100% stenosis in the Proximal RCA. PLAQUE MAKER. Ambiguous cap with side branch carotid: Impressions: Findings: Right mid ICA has a moderate, 40-59% stenosis. Findings: Left mid ICA has a severe, 60-79% stenosis. stress test: Impression: Pharmacologic stress ECG is negative for ischemia at level of heart rate achieved. Gated EF = 50%. Small sized, moderate intensity, reversible basal inferoseptal defect consistent with ischemia. Anesthesia Exam Selected Entries 12/10/18 03:41 Temperature 99.2 F Pulse Rate 76 Respiratory Rate 16 Blood Pressure 138/72 O2 Sat by Pulse Oximetry 94 Oxygen Delivery Method Room Air Weight: 90kg NPO (# of Hours): 8 - HEENT Pupil (Motor): EOMI Mallampati: II Teeth: Edentulous (upper), Poor dentition Denture Type: Upper: Complete, Lower: Partial Oral Opening: Greater than 3 - ANTIQUE FURNITURE RESTORER LOC: Oriented ANTIQUE FURNITURE RESTORER Motor: Normal RUE, Normal LUE, Normal RLE, Normal LLE, Normal Face ANTIQUE FURNITURE RESTORER Sensory: Normal: RUE, LUE, RLE, LLE, Face - Cardiac Rhythm: Regular Murmur: None - Pulmonary Breath Sounds: bilateral Clear Respiratory Effort: Symmetrical Anesthesia Assess/Plan ASA Score: 4 Level of consciousness: Cooperative, Oriented Anesthetic Plan: General Monitoring Plan: Standard Monitors, A-Line, PAC, MORGAN Recovery Plan: ICU (agrees to GA, lines, MORGAN and blood)
[2018-12-10] MEDS ORDERED: Verapamil 5 MG/2 ML VIAL ONE (06:46)
[2018-12-10 07:27] LABS: BUN/Creatinine Ratio 16 (6-26); Basophils # 0.1 K/mcL (0.0-0.2); Basophils % 0.4 %; Blood Urea Nitrogen 14 mg/dL (6-20); Calcium 9.3 mg/dL (8.6-10.3); Carbon Dioxide 26 mEq/L (23-29); Chloride 102 mEq/L (98-107); Eosinophils # 0.6 K/mcL (0.0-0.6); Eosinophils % 4.3 %; Glucose 172 mg/dL (70-105); Hematocrit 39.6 % (35.3-44.9); Immature Granulocytes % 0.4 % (0-4); Lymphocytes # 4.2 K/mcL (0.6-4.6); Lymphocytes % 29.2 %; Mean Corpuscular HGB Conc 32.8 g/dL (31.6-35.5); Mean Corpuscular Volume 88.2 fL (83.0-100.0); Mean Platelet Volume 11.7 fL (9.4-12.4); Monocytes # 1.1 K/mcL (0.0-1.3); Monocytes % 7.3 %; Neutrophils # 8.3 K/mcL (1.6-8.9); Osmolality,Calculated 289 (280-300); Platelet Count 297 K/mcL (140-400); Red Blood Count 4.49 M/mcL (3.82-4.97); Segmented Neutrophils % 58.4 %; Sodium 137 mEq/L (136-145); eGFR For Non-African Americans > 60 (> 60)
[2018-12-10 07:36] LABS: Prothrombin Time 11.1 Seconds (9.4-12.1)
[2018-12-10] MEDS ORDERED: Lidocaine 2% Syringe 100 MG/5 ML IV ONE (08:04)
[2018-12-10] MEDS ORDERED: *HR* Magnesium Sulfate 2 GM/50 ML PIGGYBACK IVPB ONE (08:04)
[2018-12-10] MEDS ORDERED: *HR* Phenylephrine 10 MG/ML VIAL IVC ONE (08:04)
[2018-12-10] MEDS ORDERED: *HR* Heparin 10,000 UNIT/10 ML VIAL IV ONE (08:04)
[2018-12-10] MEDS ORDERED: Tranexamic Acid 1,000 MG/10 ML VIAL IVPB ONE (08:04)
[2018-12-10] MEDS ORDERED: Heparin 1,000 UNITS/500 mL IV.SOLN IR ONE (08:04)
[2018-12-10] MEDS ORDERED: D5% in Water 250 ML IV BAG IV ONE (08:04)
[2018-12-10] MEDS ORDERED: Sodium Bicarbonate 50 MEQ/50 ML VIAL IVC ONE (08:04)
[2018-12-10] MEDS ORDERED: Mannitol 25% vial 12.5 GM/50 ML VIAL IVP ONE (08:04)
[2018-12-10] MEDS ORDERED: Albumin Human 25% 25 GM/100 ML IV.SOLN IV ONE (08:04)
--- NOTE | 2018-12-10 08:45 | Event Note ---
Date of Encounter: 12/10/18 Time of Encounter: 08:00 - Cardiology Event Note I received a message last night that patient was still experiencing R groin pain. After discussion with nursing staff, symptoms appeared to be worse from previous day where imaging was completed and negative for pseudoaneurysm (). 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 Daly aware per vascular lab. I discussed findings with Dr. Zarco with CT surgery this morning.
[2018-12-10] MEDS ORDERED: CeFAZolin Syr 2,000MG/20 ML 2,000 MG/20 ML SYRINGE IVPB ONE (08:56)
[2018-12-10 09:13] LABS: ABG Base Excess 0 mEq/L (-2 to 3); ABG Chloride 102 mEq/L (98-107); ABG Glucose 138 mg/dL (60-95); ABG HCO3 26 mEq/L (21-27); ABG Ionized Calcium 1.21 mmol/L (1.15-1.35); ABG Oxygen Saturation 100 % (95-98); ABG PCO2 45 mmHg (35-45); ABG PH 7.37 pH Units (7.32-7.45); ABG PO2 260 mmHg (85-104); ABG TCO2 27 mEq/L (20-26)
--- NOTE | 2018-12-10 09:46 | Anesthesia Procedures ---
Date of Encounter: 12/10/18 Time of Encounter: 08:40 Procedures: Anesthesia - Arterial Line Consent obtained: written consent Time out performed: Yes Sedation: Versed (mg): 2 Sedation: Fentanyl (mcg): 100 Supplemental Oxygen via Nasal Cannula (L/min): 2 Local Anesthetic: Lidocaine 1% Amount of Anesthetic used (mls): 1 Size (Gauge): 20 Length (inches): 5 Technique Used: sterile prep, guide wire technique, direct puncture technique Post-Procedure: line taped into place, dry sterile dressing placed Patient tolerated procedure: well, no complications Complications: none Site: Radial R Comments: attempted first in left radial, able to access artery but unable to advance guidewire. Attempt right radial and placed successfully - Central Line Placement Right IJ Consent obtained: written consent Time out performed: Yes Patient placed on monitor/pulse ox: Yes prep: mask, gown, gloves Central line prep: Chlorhexidine scrub Ultrasound used for placement: Yes Technique: Seldinger Lumen Inserted: Introducer Post procedure: sutured in place, good blood return, all ports aspirated, flushed, capped, sterile dressing applied Patient tolerated procedure: well, no complications Complications: none Comments: introducer placed easily, swan placed without arrythmia, wedge at 50 cm
[2018-12-10 10:31] LABS: ABG Base Excess -1 mEq/L (-2 to 3); ABG Chloride 107 mEq/L (98-107); ABG Glucose 149 mg/dL (60-95); ABG HCO3 23 mEq/L (21-27); ABG Ionized Calcium 1.03 mmol/L (1.15-1.35); ABG Oxygen Saturation 97 % (95-98); ABG PCO2 35 mmHg (35-45); ABG PH 7.42 pH Units (7.32-7.45); ABG PO2 90 mmHg (85-104); ABG TCO2 24 mEq/L (20-26)
[2018-12-10] MEDS ORDERED: Albumin Human 5% 37.5 GM/750 ML VIAL ONE (10:41)
[2018-12-10 10:55] LABS: ABG Base Excess 1 mEq/L (-2 to 3); ABG Chloride 101 mEq/L (98-107); ABG Glucose 216 mg/dL (60-95); ABG HCO3 25 mEq/L (21-27); ABG Ionized Calcium 0.97 mmol/L (1.15-1.35); ABG Oxygen Saturation 100 % (95-98); ABG PCO2 39 mmHg (35-45); ABG PH 7.43 pH Units (7.32-7.45); ABG PO2 477 mmHg (85-104); ABG TCO2 27 mEq/L (20-26)
[2018-12-10 11:33] LABS: ABG Base Excess 2 mEq/L (-2 to 3); ABG Chloride 99 mEq/L (98-107); ABG Glucose 203 mg/dL (60-95); ABG HCO3 27 mEq/L (21-27); ABG Ionized Calcium 1.14 mmol/L (1.15-1.35); ABG Oxygen Saturation 100 % (95-98); ABG PCO2 42 mmHg (35-45); ABG PH 7.41 pH Units (7.32-7.45); ABG PO2 369 mmHg (85-104); ABG TCO2 28 mEq/L (20-26)
[2018-12-10 12:10] LABS: ABG Base Excess 1 mEq/L (-2 to 3); ABG Chloride 99 mEq/L (98-107); ABG Glucose 180 mg/dL (60-95); ABG HCO3 26 mEq/L (21-27); ABG Ionized Calcium 1.36 mmol/L (1.15-1.35); ABG Oxygen Saturation 97 % (95-98); ABG PCO2 40 mmHg (35-45); ABG PH 7.41 pH Units (7.32-7.45); ABG PO2 90 mmHg (85-104); ABG TCO2 27 mEq/L (20-26)
[2018-12-10] MEDS ORDERED: Norepinephrine 4 MG in D5% in Water 250 ML IVC SCH (12:30)
[2018-12-10] MEDS ORDERED: Potassium Chloride 40 MEQ/200 ML BAG IVPB PRN (12:30)
[2018-12-10] MEDS ORDERED: Insulin Regular, Human 100 UNIT/ML IV PRN (12:30)
[2018-12-10] MEDS ORDERED: *HR* Dextrose 50 % in Water (Syg) 50 ML SYRINGE IVP PRN (12:30)
[2018-12-10 13:07] LABS: ABG Base Excess 3 mEq/L (-2 to 3); ABG HCO3 27 mEq/L (21-27); ABG Oxygen Saturation 97 % (95-98); ABG PCO2 37 mmHg (35-45); ABG PH 7.46 pH Units (7.32-7.45); ABG PO2 81 mmHg (85-104); ABG TCO2 28 mEq/L (20-26); Blood Gas Modality ASSIST CONTROL; Blood Gas PEEP 5 cm H2O; Blood Gas Respiration Rate 12; Blood Gas VT 600 cc
[2018-12-10 13:22] LABS: Basophils # 0.1 K/mcL (0.0-0.2); Basophils % 0.2 %; Eosinophils # 0.4 K/mcL (0.0-0.6); Eosinophils % 1.6 %; Hematocrit 33.6 % (35.3-44.9); Immature Granulocytes % 1.1 % (0-4); Lymphocytes # 5.7 K/mcL (0.6-4.6); Lymphocytes % 23.3 %; Mean Corpuscular HGB Conc 33.6 g/dL (31.6-35.5); Mean Corpuscular Hemoglobin 29.1 pg (28.0-33.3); Mean Corpuscular Volume 86.6 fL (83.0-100.0); Mean Platelet Volume 10.9 fL (9.4-12.4); Monocytes # 0.7 K/mcL (0.0-1.3); Monocytes % 2.8 %; Platelet Count 187 K/mcL (140-400); Red Blood Count 3.88 M/mcL (3.82-4.97); Red Cell Distribution Width 12.9 % (11.5-14.5)
[2018-12-10 13:25] LABS: Hemoglobin 11.3 g/dL (11.5-15.4); Neutrophils # 17.5 K/mcL (1.6-8.9)
[2018-12-10 13:29] LABS: INR 1.3
[2018-12-10 13:32] LABS: Activated Partial Thrombo Time 35.2 Seconds (26.0-36.0)
[2018-12-10 13:36] LABS: Prothrombin Time 14.1 Seconds (9.4-12.1)
[2018-12-10] MEDS: 0.9 % Sodium Chloride 1,000 ML IVC SCH (13:38)
[2018-12-10 13:39] LABS: BUN/Creatinine Ratio 14 (6-26); Blood Urea Nitrogen 13 mg/dL (6-20); Calcium 9.4 mg/dL (8.6-10.3); Carbon Dioxide 26 mEq/L (23-29); Chloride 105 mEq/L (98-107); Glucose 122 mg/dL (70-105); Magnesium 2.4 mg/dL (1.6-2.6); Osmolality,Calculated 291 (280-300); Potassium 3.6 mEq/L (3.5-5.1); Sodium 140 mEq/L (136-145); eGFR For Non-African Americans > 60 (> 60)
--- NOTE | 2018-12-10 13:43 | Operative Note ---
Date of procedure: 12/10/18 Pre-op diagnosis: Coronary artery disease Post-op diagnosis: same Procedure: Coronary artery bypass grafting 2 with the left internal mammary artery to the LAD and a saphenous vein graft to the obtuse marginal branch #1 of the circumflex. Anesthesia: MAC Surgeon: Ger Zarco Was there an printing bindery assistant present: Yes Landscape Architecture Teacher: Aravind Champion Estimated blood loss (cc): 750 Specimen: none Condition: critical Disposition: ICU Procedure in Detail: The patient is a 48-year-old female who has had stents in the past. Cardiac catheterization revealed severe coronary artery disease and she was referred for surgery. She was brought to the operating room where she was prepped and draped in standard fashion. We first harvested the right greater saphenous vein from the right knee to the right upper thigh, but this was somewhat large and was not used. Next, we harvested the right greater saphenous vein from the right ankle to the right upper calf. Later, these incisions were subs and closed with a deep layer of 0 Vicryl and a 2-0 Vicryl subcuticular stitch. A standard median sternotomy was performed. Pericardium was opened in the midline and suspended with 2-0 silk stay sutures. A double pursestring of 200 [place] was placed in the aorta for the aortic cannulation site. A pursestring of 20 Surgilon was placed in the right atrial appendage for the venous uptake. The patient was heparinized. The aorta was cannulated without difficulty. 2 stage venous uptake cannula was inserted through the right atrial appendage. A pursestring of 3-0 silk was placed in the aorta and the cardioplegia needle was inserted th rough here. This was also used is an active and passive aortic vent. The patient was placed on cardiopulmonary bypass and cooled to 34.9 degrees. At this point, the aorta was crossclamped and a liter of antegrade cardioplegia was given. Topical cooling with iced saline slush was also used. Attention was first turned to the right coronary artery. The main right coronary artery in the posterior descending branches were too small and diffusely diseased for grafting. Attention was next turned to the circumflex. The obtuse marginal branch was dissected free with the Pechanga blade and opened with a Pechanga blade and the Gaines scissors. It had a lumen of 1-1/2 mm and was relatively free of disease. A standard end-to-side anastomosis was constructed using the saphenous vein and a 7-0 Prolene. When this was completed, the patient received the last dose of antegrade cardioplegia. Attention was turned to the LAD. The LAD had moderate to severe diffuse disease throughout its entire course. It was opened with a Pechanga blade and the Gaines scissors and had a lumen of 1-1/2 mm with moderate plaquing along all hills. A standard end-to-side anastomosis was constructed using the mammary artery and a 7-0 Prolene. When this is completed, the previously placed bulldog clamp was removed and hemostasis was good. Pedicles tacked to the surface of the heart using 2 interrupted 5-0 silk camacho tures. Cross-clamp was removed and rewarming was begun. Total cross-clamp time was 38 minutes. A side-biting clamp was placed on the aorta and the cardioplegia needle was removed. A hole was made in the aorta using a Pechanga blade and the 4.4 mm aortic punch. A standard end-to-side anastomosis was constructed using the saphenous vein and a 6-0 Prolene. This is completed, the side-biting clamp was removed. The graft was de-aired use #25-gauge needle and the previously placed bulldog clamp was removed. Distal anastomoses were inspected and found to be hemostatic. The proximal anastomoses were marked with the marker from a Ray-Talisha sponge. A pair of ventricular pacing wires was left. A 32 angle chest tube to the left pleural space. A 32 chest tube to the pericardial well. A 42 mediastinal chest tube. The patient was weaned from bypass and decannulated. Protamine was given. Pericardium was loosely closed with interrupted 2-0 silk sutures. Sternum was closed with #7 sternal wires in simple and [id number] fashion. Fascia was run with #1 Vicryl. Subcutaneous tissues with a 2-0 Vicryl. Skin was closed with a 3-0 Vicryl subcuticular stitch. The patient tolerated procedure well and was returned to intensive care unit in satisfactory and stable condition. Total bypass time was 63 minutes. Total cross-clamp time was 38 minutes. She had been cooled to 34.9 degrees.
[2018-12-10] MEDS: *HR* FentaNYL (PF) 100 MCG/2 ML VIAL IVP PRN ×5 (13:58→23:10)
--- NOTE | 2018-12-10 13:58 | Internal Med Progress Note ---
Hospitalist Progress Note - Encounter Date of Encounter: 12/10/18 Time of Encounter: 13:40 - Subjective Interval History: Pt seen post-op in the ICU. Currently sedated and intubated. - Exam Vitals: Temp Pulse Resp BP Pulse Ox 98.5 F 75 12 155/78 96 12/10/18 06:58 12/10/18 06:58 12/10/18 12:45 12/10/18 06:58 12/10/18 12:45 Exam: General: sedated and intubated Heart: S1S2 Lungs: CTA Abdomen: Soft. non-tender - Assessment and Plan (1) CAD (coronary artery disease) Current Visit: Yes Status: Acute Assessment and Plan: underwent LHC on 12/04 which showed 100% pRCA stenosis with collaterals, pLAD 90%, mid-distal LAD 70%, LCX 70% carotid doppler: R Chris with 40-59% stenosis, L Chris 60-79% s/p CABG today post-op mx per CTS, will sign off. Please reconsult if needed (2) Abnormal stress test Current Visit: Yes Status: Acute Assessment and Plan: as above (3) Chest pain Current Visit: Yes Status: Acute Assessment and Plan: as above (4) HTN (hypertension) Current Visit: Yes Status: Chronic Assessment and Plan: mx per CTS post-op - Time Spent with Patient Total time spent is greater than 50% in coordination of care (as documented) at patient's floor/unit and/or counseling patient: Plan of Care Discussed with: nurse Internal Medicine: Result - Labs CBC & Chem 7: 12/10/18 13:05 12/10/18 13:05 Labs: Short CBC 12/10/18 12/10/18 Range/Units 05:52 13:05 WBC 14.3 H 24.6 H D (4.3-11.1) K/mcL Hgb 13.0 11.3 L D (11.5-15.4) g/dL Hct 39.6 33.6 L (35.3-44.9) % Plt Count 297 187 (140-400) K/mcL Neutrophils # 8.3 17.5 H (1.6-8.9) K/mcL BMP 12/10/18 12/10/18 05:52 13:05 Sodium 137 140 Potassium 4.0 3.6 Chloride 102 105 Carbon Dioxide 26 26 BUN 14 13 Creatinine 0.89 0.95 Glucose 172 H 122 H Calcium 9.3 9.4 - ABG Interpretation ABG results: ABG ABG pH 7.46 pH Units (7.32-7.45) H 12/10/18 13:05 ABG pCO2 37 mmHg (35-45) 12/10/18 13:05 ABG pO2 81 mmHg (85-104) L 12/10/18 13:05 ABG O2 Saturation 97 % (95-98) 12/10/18 13:05 PT/INR, D-dimer PT 14.1 Seconds (9.4-12.1) H 12/10/18 13:05 - Impressions Impressions Chest X-Ray 12/10/18 12:30 IMPRESSION: 1. Status post open heart surgery with lines and tubes as described. 2. Lower lung volumes with mild edema. 3. No pneumothorax. D/ / 12/10/2018 13:36:15 Michelle Staton MD / fanny Interpreting Provider: Michelle Staton MD Consult Discharge Plan - Plan Referrals: Evangelina Mehta MD [Partnered Physician] - 12/17/18 1:00 pm (Please follow up as schedule...) (1) CAD (coronary artery disease) Qualifiers: Coronary Disease-Associated Artery/Lesion type: [place] artery [place] vs. transplanted heart: [place] heart Associated angina: with unspecified angina Qualified Code(s): I25.119 - Atherosclerotic heart disease of [place] coronary artery with unspecified angina pectoris (3) Chest pain Qualifiers: Chest pain type: unspecified Qualified Code(s): R07.9 - Chest pain, unspecified (4) HTN (hypertension) Qualifiers: Hypertension type: essential hypertension Qualified Code(s): I10 - Essential (primary) hypertension
[2018-12-10] MEDS: Aspirin 81 MG TAB.CHEW PO SCH (14:14)
[2018-12-10] MEDS: Nitroglycerin 25 MG/250 ML INFUS..BTL IVC SCH ×2 (14:30→23:08)
--- NOTE | 2018-12-10 14:57 | Electrocardiograph Report ---
[address] [place], [place] [address] Test Date: 2018-12-10 Pat Name: Benita Youssef Department: 109 Room: [facility] Gender: Pharmacy Informatics Specialist: SUSANA : 1970 Requested By: [id number] Order Number: [id number] Reading MD: Phong Saldivar Measurements Intervals [place] Rate: 102 P: DE: 0 QRS: -1 QRSD: 113 T: 52 QT: 370 QTc: 429 Interpretive Statements Sinus tachycardia Possible inerior infarction, age undetermined Electronically Signed On 12-10-2018 14:55:30 EST by Phong Saldivar
[2018-12-10] MEDS: Acetaminophen 325 MG TABLET PO PRN (15:36)
--- NOTE | 2018-12-10 16:16 | Vascular/Endovasc Consult Note ---
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 (2) CAD (coronary artery disease) Current Visit: Yes Status: Acute Patient for open-heart bypass grafting with Dr. Zarco today. Qualifiers: Coronary Disease-Associated Artery/Lesion type: [place] artery [place] vs. transplanted heart: [place] heart Associated angina: with unspecified angina Qualified Code(s): I25.119 - Atherosclerotic heart disease of [place] coronary artery with unspecified angina pectoris (3) Diabetes mellitus Current Visit: Yes Status: Chronic Patient has chronic diabetes Qualifiers: Diabetes mellitus type: type 2 Diabetes mellitus custodial insulin use: without custodial use Diabetes mellitus complication status: without com plication Qualified Code(s): E11.9 - Type 2 diabetes mellitus without complications - History of Present Illness Consult date: 12/10/18 Requesting physician: Ger Zarco Consult reason: Right femoral pseudoaneurysm Chief complaint: Right groin pain History of present illness: Ms. Youssef is a 48 year old female Fluid undergone a cardiac catheterization last Saturday. The patient had had a previous femoral duplex scan 2 days ago which was negative for pseudoaneurysm. However the patient had an exacerbation of the right groin pain and discomfort which led to a repeat duplex scan performed late last night. This revealed a femoral pseudoaneurysm. I have personally reviewed the images and concur with the diagnosis of the right femoral pseudoaneurysm. However the patient is scheduled for open heart bypass grafting today with Dr. Zarco. Due to the need for high-dose heparin she is not a candidate for ultrasound-guided thrombin injection. The pain is also significant and with active coronary disease she is not a candidate for compression therapy. Therefore the patient will need open repair of the right femoral pseudoaneurysm in surgery concurrent with open heart bypass grafting. Past Med Surg Social Fam HX - Past Medical History Medical history: coronary artery disease, diabetes, hyperlipidemia, hypertension, myocardial infarction Additional medical history: [place] disease Psychiatric history: no psych history - Past Surgical History Surgical History: angioplasty/stent Additional surgical history: multiple urinary stent placement. wisdom teeth removal - Social History Smoking Status: Never smoker Packs per day: 1 Smokeless Tobacco Status: No Alcohol use: none Drug use: none - Family History Father Living Status: Hx Family Cardiac Disorders: Yes Mother Living Status: Hx Family Cardiac Disorders: Yes Hx Family Respiratory Disorders: Yes Medications and Allergies Aspirin [Lo-Dose Aspirin EC] 81 mg PO DAILY 01/17/18 [History] Allergy/AdvReac Type Severity Reaction Status Date / Time codeine AdvReac Vomiting Verified 12/01/18 07:44 anesthesia AdvReac Drowsy Uncoded 12/01/18 07:44 All Systems Review: The remainder of the systems were reviewed and are negative Exam Vital Signs, Last 4 Hours Resp Pulse Ox 12/10/18 12:45 12 96 General: Present: Conversant, No Apparent Distress, Well developed, Well nourished HEENT: Present: Atraumatic, Normocephaly Neck: Absent: JVD Cardiac: Present: Reg Rate and Rhythm Neuro: Present: Alert and responsive Abdomen: Present: Soft, Non-tender. Absent: Masses Vascular: Present: Pulse, normal, Color/Temperature (Color and temperature of lower extremities is normal.), Other (Patient has a tender right groin with a localized pulsatile mass.) Skin: Present: No rashes noted on visualized skin Consult Discharge Plan - Plan Referrals: Evangelina Mehta MD [Partnered Physician] - 12/17/18 1:00 pm (Please follow up as schedule...)
--- NOTE | 2018-12-10 16:23 | Operative Note ---
Date of procedure: 12/10/18 Pre-op diagnosis: Right femoral pseudoaneurysm Post-op diagnosis: same Procedure: Repair of right femoral pseudoaneurysm Complications: None Anesthesia: GETA Surgeon: Tito Daly Was there an life science research assistant present: No Estimated blood loss (cc): 15 Specimen: None Condition: stable Disposition: ICU Procedure in Detail: History Mrs. Youssef is a 48-year-old white female who was found to have symptomatic coronary artery disease and was recommended to undergo open heart bypass grafting. She had had a cardiac catheterization this past Saturday. The patient developed pain and swelling in the right groin leading to a repeat duplex scan performed late last night. This duplex scan was positive for a right femoral pseudoaneurysm. Due to the high-dose heparin the patient will receive during open heart bypass grafting she was recommended to undergo concurrent repair of this lesion with her bypass grafting. Procedure Patient was taken to the operating room and appropriately prepared and prepped and draped per the open heart bypass grafting protocol. Dr. Zarco performed open heart bypass grafting. An appropriate time I was notified and I came to the operating room. A timeout protocol was observed for my procedure. An incision was made in the right groin. Dissection was carried down to the femoral sheath. Marked inflammation was encountered with significant fat inflammation and adherence to the femoral vessels. The pseudoaneurysm was identified anterior to the femoral artery. Control was obtained of the artery proximally distally. The periadventitial inflammatory tissue was then dissected away including the pseudo aneurysm from the anterior surface of the vessel. The puncture site from the cardiac catheterization was identified. This was then closed using a running 6-0 Prolene suture. After appropriate backbleeding and flushing the artery was opened. Excellent pulsatile flow was noted by palpation and with Doppler evaluation. The right groin was then irrigated with antibiotic containing solution. Hemostasis was achieved. The wound was then closed in layers using absorbable suture. A dry sterile dressing was applied. The patient was then taken from the operating room to the intensive care unit per the open heart bypass grafting protocol.
[2018-12-10 16:51] LABS: ABG Base Excess 3 mEq/L (-2 to 3); ABG HCO3 27 mEq/L (21-27); ABG Oxygen Saturation 98 % (95-98); ABG PCO2 36 mmHg (35-45); ABG PH 7.48 pH Units (7.32-7.45); ABG PO2 91 mmHg (85-104); ABG TCO2 28 mEq/L (20-26); Blood Gas Modality ASSIST CONTROL; Blood Gas PEEP 5 cm H2O; Blood Gas Respiration Rate 12; Blood Gas VT 600 cc
[2018-12-10] MEDS: niCARdipine 40 MG/200 ML MLS IVC SCH ×3 (19:17→21:28)
[2018-12-10] MEDS: Insulin LISPRO 300 UNITS/3 ML VIAL SQ SCH (19:18)
[2018-12-10] MEDS: Insulin Human Regular 100 UNIT in 0.9 % Sodium Chloride 100 ML IVC SCH (19:19)
[2018-12-10] MEDS: Ondansetron 4 MG/2 ML VIAL IVP PRN (19:25)
[2018-12-10 21:06] LABS: ABG Base Excess 2 mEq/L (-2 to 3); ABG HCO3 28 mEq/L (21-27); ABG Oxygen Saturation 97 % (95-98); ABG PCO2 46 mmHg (35-45); ABG PH 7.39 pH Units (7.32-7.45); ABG PO2 88 mmHg (85-104); ABG TCO2 29 mEq/L (20-26); Blood Gas Modality CPAP/PS; Blood Gas PEEP 5 cm H2O; Blood Gas Pressure Support 5 cm H2O
[2018-12-10] MEDS: *HR* OxyCODONE/APAP 5/325 TABLET PO PRN (22:06)
[2018-12-11] MEDS: *HR* OxyCODONE/APAP 5/325 TABLET PO PRN ×4 (02:09→20:38)
[2018-12-11] MEDS: *HR* FentaNYL (PF) 100 MCG/2 ML VIAL IVP PRN ×2 (03:23→07:20)
[2018-12-11] MEDS: 0.9 % Sodium Chloride 1,000 ML IVC SCH (03:24)
[2018-12-11 04:09] LABS: Basophils # 0.1 K/mcL (0.0-0.2); Basophils % 0.3 %; Eosinophils # 0.1 K/mcL (0.0-0.6); Eosinophils % 0.4 %; Hematocrit 28.9 % (35.3-44.9); Immature Granulocytes % 0.7 % (0-4); Lymphocytes # 1.5 K/mcL (0.6-4.6); Lymphocytes % 9.4 %; Mean Corpuscular HGB Conc 32.5 g/dL (31.6-35.5); Mean Corpuscular Hemoglobin 29.1 pg (28.0-33.3); Mean Corpuscular Volume 89.5 fL (83.0-100.0); Mean Platelet Volume 11.1 fL (9.4-12.4); Monocytes # 1.3 K/mcL (0.0-1.3); Monocytes % 8.2 %; Neutrophils # 12.6 K/mcL (1.6-8.9); Platelet Count 189 K/mcL (140-400); Red Blood Count 3.23 M/mcL (3.82-4.97); Red Cell Distribution Width 13.2 % (11.5-14.5)
[2018-12-11 04:16] LABS: INR 1.2; Prothrombin Time 13.4 Seconds (9.4-12.1)
[2018-12-11 04:19] LABS: Activated Partial Thrombo Time 30.5 Seconds (26.0-36.0)
[2018-12-11 04:22] LABS: Hemoglobin 9.4 g/dL (11.5-15.4)
[2018-12-11 04:30] LABS: BUN/Creatinine Ratio 16 (6-26); Blood Urea Nitrogen 14 mg/dL (6-20); Carbon Dioxide 26 mEq/L (23-29); Chloride 107 mEq/L (98-107); Glucose 146 mg/dL (70-105); Magnesium 1.9 mg/dL (1.6-2.6); Osmolality,Calculated 289 (280-300); Potassium 4.5 mEq/L (3.5-5.1); Sodium 138 mEq/L (136-145); eGFR For Non-African Americans > 60 (> 60)
[2018-12-11] MEDS: Nitroglycerin 25 MG/250 ML INFUS..BTL IVC SCH (05:09)
--- NOTE | 2018-12-11 07:02 | Cardiothoracic Progress Note ---
Date of Encounter: 12/11/18 Time of Encounter: 07:00 - Assessment and plan (1) CAD (coronary artery disease) Current Visit: Yes Status: Acute We will discontinue the IV fluids, arterial line and [place] catheter. We will leave the Espino catheter until tomorrow per the patient's request. We will write transfer orders. I will place her on Lopressor 50 mg by mouth twice a day. Qualifiers: Coronary Disease-Associated Artery/Lesion type: [place] artery [place] vs. transplanted heart: [place] heart Associated angina: with unspecified angina Qualified Code(s): I25.119 - Atherosclerotic heart disease of [place] coronary artery with unspecified angina pectoris - Subjective Interval history: The patient has mild postoperative pain. Vital Signs, Last 4 Hours Temp Pulse Resp BP Pulse Ox 12/11/18 06:00 98.5 F 105 18 120/72 95 12/11/18 05:00 98 F 109 20 136/70 94 12/11/18 04:00 97.9 F 112 18 129/65 92 12/11/18 03:37 12 92 Oxgyen Flow Rate Oxygen Flow Rate (LPM) 3 Clinical Data, last 8 Hours Output, Chest Tube Drainage 4 Amount [Mediastinal #1] Output, Chest Tube Drainage 4 Amount [Mediastinal #1] Output, Chest Tube Drainage 0 Amount [Mediastinal #1] Output, Chest Tube Drainage 0 Amount [Mediastinal #1] Output, Chest Tube Drainage 0 Amount [Mediastinal #1] Output, Chest Tube Drainage 12 Amount [Mediastinal #1] Output, Chest Tube Drainage 0 Amount [Mediastinal #1] Output, Chest Tube Drainage 6 Amount [Mediastinal #2] Output, Chest Tube Drainage 8 Amount [Mediastinal #2] Output, Chest Tube Drainage 6 Amount [Mediastinal #2] Output, Chest Tube Drainage 10 Amount [Mediastinal #2] Output, Chest Tube Drainage 2 Amount [Mediastinal #2] Output, Chest Tube Drainage 12 Amount [Mediastinal #2] Output, Chest Tube Drainage 7 Amount [Mediastinal #2] Output, Chest Tube Drainage 6 Amount [Mediastinal #3] Output, Chest Tube Drainage 6 Amount [Mediastinal #3] Output, Chest Tube Drainage 4 Amount [Mediastinal #3] Output, Chest Tube Drainage 6 Amount [Mediastinal #3] Output, Chest Tube Drainage 2 Amount [Mediastinal #3] Output, Chest Tube Drainage 6 Amount [Mediastinal #3] Output, Chest Tube Drainage 6 Amount [Mediastinal #3] Output, Urine Amount 45 Weight 12/09/18 12/10/18 12/11/18 23:59 23:59 23:59 Weight 90 kg 90.4 kg Lungs are clear to percussion and auscultation. Heart is in a normal sinus rhythm. All incisions are healing well without signs of infection and the sternum is stable. Chest tube drainage is minimal and there is no air leak. - Labs 12/11/18 03:58 12/11/18 03:58 Lab Results, Last 24 hours 12/10/18 12/10/18 12/10/18 05:52 05:52 05:52 WBC 14.3 H Hgb 13.0 Hct 39.6 Plt Count 297 INR 1.0 APTT Sodium 137 Potassium 4.0 Chloride 102 Carbon Dioxide 26 BUN 14 Creatinine 0.89 Glucose 172 H Calcium 9.3 Magnesium 12/10/18 12/10/18 12/10/18 13:05 13:05 13:05 WBC 24.6 H D Hgb 11.3 L D Hct 33.6 L Plt Count 187 INR 1.3 APTT 35.2 Sodium 140 Potassium 3.6 Chloride 105 Carbon Dioxide 26 BUN 13 Creatinine 0.95 Glucose 122 H Calcium 9.4 Magnesium 2.4 12/11/18 12/11/18 12/11/18 03:58 03:58 03:58 WBC 15.6 H Hgb 9.4 L D Hct 28.9 L Plt Count 189 INR 1.2 APTT 30.5 Sodium 138 Potassium 4.5 Chloride 107 Carbon Dioxide 26 BUN 14 Creatinine 0.90 Glucose 146 H Calcium 8.0 L Magnesium 1.9 - VTE Documentation of Mechanical Device: Graduated compression elastic hosiery Consult Discharge Plan - Plan Referrals: Evangelina Mehta MD [Partnered Physician] - 12/17/18 1:00 pm (Please follow up as schedule...)
[2018-12-11] MEDS: *HR* HYDROcodone/Acet 5/325 mg TABLET PO PRN (07:53)
[2018-12-11] MEDS ORDERED: Heparin 1,000 UNITS/500 mL 500 ML ONE (09:02)
[2018-12-11] MEDS: Aspirin 81 MG TAB.CHEW PO SCH (09:41)
[2018-12-11] MEDS: Chlorhexidine Rinse 15 ML MOUTHWASH MM SCH ×2 (09:41→20:39)
[2018-12-11] MEDS: Insulin Human Regular 100 UNIT in 0.9 % Sodium Chloride 100 ML IVC SCH (09:48)
[2018-12-11] MEDS ORDERED: D5% in Water 1,000 ML IVC PRN (09:54)
[2018-12-11] MEDS ORDERED: Dextrose Gel 15 GM/37.5 ML TUBE PO PRN ×2 (09:54)
[2018-12-11] MEDS ORDERED: Naloxone 0.4 MG/ML INJ IVP PRN (09:54)
[2018-12-11] MEDS ORDERED: Nitroglycerin 0.4 MG TAB.SUBL SL PRN (09:54)
[2018-12-11] MEDS ORDERED: *HR* FentaNYL (PF) 100 MCG/2 ML VIAL IVP PRN (09:54)
[2018-12-11] MEDS ORDERED: *HR* Dextrose 50 % in Water (Syg) 50 ML SYRINGE IVP PRN (09:54)
--- NOTE | 2018-12-11 10:18 | Anesthesia Evaluation Post Op ---
Date of Encounter: 12/11/18 Time of Encounter: 06:30 - Vital Signs Vital Signs: Selected Entries 12/11/18 06:00 Temperature 98.5 F Pulse Rate 105 Respiratory Rate 18 Blood Pressure 120/72 O2 Sat by Pulse Oximetry 95 Oxygen Flow Rate (LPM) 3 Oxygen Delivery Method Nasal Cannula - Lungs Lungs: Clear Ascult./Percussion - Airway Airway: Non-obstructed - Cardiovascular Regular Rate - Mental Status Mental Status: Alert & Oriented, Answers Appropriately - Pain Pain Scale: 3 Pain Scale used: Numeric (1 - 10) - Nausea Vomiting Nausea Vomiting: Not Present - Hydration Hydration: Tolerates oral liquids, Espino catheter Notes: 12/11/18 10:18 POD #1 CABG, no apparent anesthesia problems
[2018-12-11] MEDS: Insulin LISPRO 300 UNITS/3 ML VIAL SQ SCH ×4 (11:01→21:42)
[2018-12-11] MEDS: Ondansetron 4 MG/2 ML VIAL IVP PRN (13:55)
[2018-12-11] MEDS: *HR* Heparin 5,000 UNIT/ML VIAL SQ SCH (17:18)
--- NOTE | 2018-12-11 22:39 | Vascular/Endovas Progress Note ---
Date of Encounter: 12/11/18 Time of Encounter: 20:20 - Assessment and plan (1) Femoral artery pseudoaneurysm complicating cardiac catheterization Current Visit: Yes Status: Acute The patient is healing well after repair of her right femoral pseudoaneurysm. SHe may follow-up with Dr. Daly after discharge. - Subjective Interval history: The patient is alert and comfortable. She reports adequate pain control. She denies chest pain or shortness of breath. Vital Signs, Last 4 Hours Temp Pulse Resp BP Pulse Ox 12/11/18 20:35 98 12/11/18 20:22 14 96 12/11/18 18:57 97.9 F 101 20 107/68 96 - Physical Examination General: Present: Conversant HEENT: Present: Pupils equal Cardiac: Present: Reg Rate and Rhythm Lungs: Present: Normal Breath Sounds Neuro: Present: No focal deficits noted Vascular: Present: Normal capillary refill, Surgical incisions (right inguinal incision clean and dry, no erythema, no hematoma, no pulsatile mass.). Absent: Edema - VTE Documentation of Mechanical Device: Graduated compression elastic hosiery Results 12/11/18 03:58 12/11/18 03:58 Lab Results, Last 24 hours 12/11/18 12/11/18 12/11/18 03:58 03:58 03:58 WBC 15.6 H Hgb 9.4 L D Hct 28.9 L Plt Count 189 INR 1.2 APTT 30.5 Sodium 138 Potassium 4.5 Chloride 107 Carbon Dioxide 26 BUN 14 Creatinine 0.90 Glucose 146 H Calcium 8.0 L Magnesium 1.9 Consult Discharge Plan - Plan Referrals: Evangelina Mehta MD [Partnered Physician] - 12/17/18 1:00 pm (Please follow up as schedule...)
[2018-12-12] MEDS: *HR* OxyCODONE/APAP 5/325 TABLET PO PRN ×6 (00:17→23:53)
[2018-12-12 04:18] LABS: Basophils # 0.1 K/mcL (0.0-0.2); Basophils % 0.3 %; Eosinophils # 0.4 K/mcL (0.0-0.6); Eosinophils % 2.2 %; Hematocrit 27.3 % (35.3-44.9); Hemoglobin 8.9 g/dL (11.5-15.4); Immature Granulocytes % 0.6 % (0-4); Lymphocytes # 3.3 K/mcL (0.6-4.6); Lymphocytes % 18.9 %; Mean Corpuscular HGB Conc 32.6 g/dL (31.6-35.5); Mean Corpuscular Hemoglobin 29.5 pg (28.0-33.3); Mean Corpuscular Volume 90.4 fL (83.0-100.0); Mean Platelet Volume 11.1 fL (9.4-12.4); Monocytes # 1.4 K/mcL (0.0-1.3); Monocytes % 7.7 %; Neutrophils # 12.4 K/mcL (1.6-8.9); Platelet Count 198 K/mcL (140-400); Red Blood Count 3.02 M/mcL (3.82-4.97); Red Cell Distribution Width 13.3 % (11.5-14.5); Segmented Neutrophils % 70.3 %
[2018-12-12 04:35] LABS: BUN/Creatinine Ratio 18 (6-26); Blood Urea Nitrogen 15 mg/dL (6-20); Calcium 8.4 mg/dL (8.6-10.3); Carbon Dioxide 26 mEq/L (23-29); Chloride 105 mEq/L (98-107); Glucose 162 mg/dL (70-105); Osmolality,Calculated 286 (280-300); Potassium 4.7 mEq/L (3.5-5.1); Sodium 136 mEq/L (136-145); eGFR For Non-African Americans > 60 (> 60)
[2018-12-12] MEDS: *HR* Heparin 5,000 UNIT/ML VIAL SQ SCH ×2 (05:04→16:58)
--- NOTE | 2018-12-12 06:45 | Cardiothoracic Progress Note ---
Date of Encounter: 12/12/18 Time of Encounter: 06:44 - Assessment and plan (1) CAD (coronary artery disease) Current Visit: Yes Status: Acute We will discontinue the patient's Espino catheter. We will check a stat portable chest x-ray. Qualifiers: Coronary Disease-Associated Artery/Lesion type: [place] artery [place] vs. transplanted heart: [place] heart Associated angina: with unspecified angina Qualified Code(s): I25.119 - Atherosclerotic heart disease of [place] coronary artery with unspecified angina pectoris - Subjective Interval history: The patient complains of mild postoperative pain. Vital Signs, Last 4 Hours Temp Pulse Resp BP Pulse Ox 12/12/18 05:00 88 12/12/18 04:28 14 95 12/12/18 04:05 98.0 F 87 18 111/71 95 Oxgyen Flow Rate Oxygen Flow Rate (LPM) 2 Clinical Data, last 8 Hours Output, Chest Tube Drainage 10 Amount [Mediastinal #1] Output, Chest Tube Drainage 10 Amount [Mediastinal #1] Output, Chest Tube Drainage 0 Amount [Mediastinal #2] Output, Chest Tube Drainage 28 Amount [Mediastinal #2] Output, Chest Tube Drainage 20 Amount [Mediastinal #3] Output, Chest Tube Drainage 20 Amount [Mediastinal #3] Weight 12/10/18 12/11/18 12/12/18 23:59 23:59 23:59 Weight 90 kg 90.4 kg 88.7 kg Lungs are clear to percussion and auscultation. Heart is in a normal sinus rhythm. All incisions are healing well without signs of infection and the sternum is stable. Chest tube drainage is minimal and there is no air leak. The chest tubes and pacing wires were removed. - Labs 12/12/18 03:54 12/12/18 03:54 Lab Results, Last 24 hours 12/12/18 12/12/18 03:54 03:54 WBC 17.6 H Hgb 8.9 L Hct 27.3 L Plt Count 198 Sodium 136 Potassium 4.7 Chloride 105 Carbon Dioxide 26 BUN 15 Creatinine 0.82 Glucose 162 H Calcium 8.4 L - VTE Documentation of Mechanical Device: Graduated compression elastic hosiery Consult Discharge Plan - Plan Referrals: Evangelina Mehta MD [Partnered Physician] - 12/17/18 1:00 pm (Please follow up as schedule...)
[2018-12-12] MEDS: Chlorhexidine Rinse 15 ML MOUTHWASH MM SCH ×2 (07:33→20:19)
[2018-12-12] MEDS: Aspirin 81 MG TAB.CHEW PO SCH (07:33)
[2018-12-12] MEDS: Insulin LISPRO 300 UNITS/3 ML VIAL SQ SCH ×4 (07:37→20:19)
[2018-12-12] MEDS: *HR* Promethazine 25 MG/ML VIAL IVP PRN (11:06)
[2018-12-12] MEDS: Acetaminophen 325 MG TABLET PO PRN (11:07)
--- NOTE | 2018-12-12 18:15 | Vascular/Endovas Progress Note ---
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 Her wound is healing well. She may follow-up with Dr. Daly after discharge. We will sign off on the patient. Reconsult if necessary. - Subjective Interval history: The patient states that she is counseled today. She denies any fevers or chills. She denies chest pain or shortness of breath. Vital Signs, Last 4 Hours Temp Pulse Resp BP Pulse Ox 12/12/18 16:34 98.2 F 99 18 121/77 100 12/12/18 16:30 18 96 - Physical Examination Cardiac: Present: Reg Rate and Rhythm Lungs: Present: Normal Breath Sounds Vascular: Present: Surgical incisions (Incision clean, dry and intact without erythema or drainage.) - VTE Documentation of Mechanical Device: Graduated compression elastic hosiery Results 12/12/18 03:54 12/12/18 03:54 Lab Results, Last 24 hours 12/12/18 12/12/18 03:54 03:54 WBC 17.6 H Hgb 8.9 L Hct 27.3 L Plt Count 198 Sodium 136 Potassium 4.7 Chloride 105 Carbon Dioxide 26 BUN 15 Creatinine 0.82 Glucose 162 H Calcium 8.4 L Consult Discharge Plan - Plan Referrals: Evangelina Mehta MD [Partnered Physician] - 12/17/18 1:00 pm (Please follow up as schedule...)
[2018-12-13] MEDS: *HR* Heparin 5,000 UNIT/ML VIAL SQ SCH ×2 (04:32→17:30)
[2018-12-13] MEDS: *HR* OxyCODONE/APAP 5/325 TABLET PO PRN ×5 (04:32→21:47)
[2018-12-13 06:18] LABS: Basophils # 0.1 K/mcL (0.0-0.2); Basophils % 0.4 %; Eosinophils # 0.7 K/mcL (0.0-0.6); Eosinophils % 4.6 %; Hematocrit 28.4 % (35.3-44.9); Hemoglobin 8.9 g/dL (11.5-15.4); Immature Granulocytes % 0.5 % (0-4); Lymphocytes # 4.3 K/mcL (0.6-4.6); Lymphocytes % 29.7 %; Mean Corpuscular HGB Conc 31.3 g/dL (31.6-35.5); Mean Corpuscular Hemoglobin 28.7 pg (28.0-33.3); Mean Corpuscular Volume 91.6 fL (83.0-100.0); Mean Platelet Volume 11.1 fL (9.4-12.4); Neutrophils # 8.5 K/mcL (1.6-8.9); Platelet Count 233 K/mcL (140-400); Red Cell Distribution Width 13.5 % (11.5-14.5); Segmented Neutrophils % 57.8 %
[2018-12-13 06:32] LABS: BUN/Creatinine Ratio 21 (6-26); Blood Urea Nitrogen 15 mg/dL (6-20); Calcium 8.7 mg/dL (8.6-10.3); Carbon Dioxide 25 mEq/L (23-29); Chloride 104 mEq/L (98-107); Glucose 125 mg/dL (70-105); Osmolality,Calculated 290 (280-300); Potassium 3.9 mEq/L (3.5-5.1); Sodium 139 mEq/L (136-145); eGFR For Non-African Americans > 60 (> 60)
[2018-12-13] MEDS: Aspirin 81 MG TAB.CHEW PO SCH (08:29)
[2018-12-13] MEDS: Insulin LISPRO 300 UNITS/3 ML VIAL SQ SCH ×4 (08:30→20:03)
[2018-12-13] MEDS: Chlorhexidine Rinse 15 ML MOUTHWASH MM SCH ×2 (08:30→20:01)
[2018-12-13] MEDS: Ondansetron 4 MG/2 ML VIAL IVP PRN ×2 (08:34→17:30)
--- NOTE | 2018-12-13 09:55 | Cardiothoracic Progress Note ---
Date of Encounter: 12/13/18 Time of Encounter: 09:52 - Assessment and plan (1) CAD (coronary artery disease) Current Visit: Yes Status: Acute The assessment and plan as outlined above was discussed with the patient and/or family members who expressed understanding and agreement. All questions were answered. check chest xray in am. Qualifiers: Coronary Disease-Associated Artery/Lesion type: [place] artery [place] vs. transplanted heart: [place] heart Associated angina: with unspecified angina Qualified Code(s): I25.119 - Atherosclerotic heart disease of [place] coronary artery with unspecified angina pectoris - Subjective Interval history: no f/c/s/n/v. clear sputum production. pain at incision Vital Signs, Last 4 Hours Temp Pulse Resp BP Pulse Ox 12/13/18 08:00 108 12/13/18 07:58 15 87 12/13/18 07:25 98.2 F 108 15 112/75 87 Oxgyen Flow Rate Oxygen Flow Rate (LPM) 3 Clinical Data, last 8 Hours Output, Urine Amount 300 Output, Urine Amount 0 Weight 12/11/18 12/12/18 12/13/18 23:59 23:59 23:59 Weight 90.4 kg 88.7 kg 87 kg - Physical Examination General: Conversant, No Apparent Distress HEENT: Atraumatic, Normocephaly Cardiac: Reg Rate and Rhythm, Normal S1 and S2 Sternum: Stable, Other (gauze over sternum is dry ) Lungs: Other (slight rhonchi in midline that clears with cough ) Neuro: Alert and responsive, No focal deficits noted Vascular: Normal capillary refill Abdomen: Soft, Non-tender, Other (reports flatus but no bm. bs present. ) - Labs 12/13/18 05:05 12/13/18 05:05 Lab Results, Last 24 hours 12/13/18 12/13/18 05:05 05:05 WBC 14.6 H Hgb 8.9 L Hct 28.4 L Plt Count 233 Sodium 139 Potassium 3.9 Chloride 104 Carbon Dioxide 25 BUN 15 Creatinine 0.70 Glucose 125 H Calcium 8.7 - VTE Documentation of Mechanical Device: Graduated compression elastic hosiery Consult Discharge Plan - Plan Referrals: Evangelina Mehta MD [Partnered Physician] - 12/17/18 1:00 pm (Please follow up as schedule...)
[2018-12-13] MEDS: Bisacodyl 10 MG RECTAL SUPPOSITORY RC PRN (17:30)
[2018-12-13] MEDS: Acetaminophen 325 MG TABLET PO PRN (19:59)
[2018-12-14] MEDS: *HR* OxyCODONE/APAP 5/325 TABLET PO PRN ×5 (03:52→21:31)
[2018-12-14] MEDS: *HR* Heparin 5,000 UNIT/ML VIAL SQ SCH ×2 (06:30→17:47)
[2018-12-14] MEDS: Chlorhexidine Rinse 15 ML MOUTHWASH MM SCH ×2 (07:33→20:38)
[2018-12-14] MEDS: Aspirin 81 MG TAB.CHEW PO SCH (07:33)
[2018-12-14] MEDS: Insulin LISPRO 300 UNITS/3 ML VIAL SQ SCH ×4 (07:42→20:57)
[2018-12-14] MEDS: Ondansetron 4 MG/2 ML VIAL IVP PRN ×2 (09:11→17:47)
--- NOTE | 2018-12-14 09:44 | Cardiothoracic Progress Note ---
Date of Encounter: 12/14/18 Time of Encounter: 09:42 - Assessment and plan (1) CAD (coronary artery disease) Current Visit: Yes Status: Acute The assessment and plan as outlined above was discussed with the patient and/or family members who expressed understanding and agreement. All questions were answered. xray good. patient encouraged by me and nurse to ambulate, hold her own i/s and use it, otherwise risks of pneumonia and readmission. Qualifiers: Coronary Disease-Associated Artery/Lesion type: [place] artery [place] vs. transplanted heart: [place] heart Associated angina: with unspecified angina Qualified Code(s): I25.119 - Atherosclerotic heart disease of [place] coronary artery with unspecified angina pectoris - Subjective Interval history: pain at incision. ambulated in the room. patient stated she should ambulate in the halls today. Vital Signs, Last 4 Hours Temp Pulse Resp BP Pulse Ox 12/14/18 07:38 98.3 F 102 18 127/80 92 12/14/18 07:24 16 95 12/14/18 07:00 96 Oxgyen Flow Rate Oxygen Flow Rate (LPM) 0 Clinical Data, last 8 Hours Output, Urine Amount 300 Weight 12/12/18 12/13/18 12/14/18 23:59 23:59 23:59 Weight 88.7 kg 87 kg 87.6 kg - Physical Examination General: Conversant, No Apparent Distress, Other (flat affect. patient will not work well with nursing staff per nurse. ) HEENT: Atraumatic, Normocephaly, Trachea midline Cardiac: Reg Rate and Rhythm, Normal S1 and S2, No Murmur Incision: No signs of infection, Dry/intact dressing Lungs: Normal Breath Sounds Abdomen: Soft, Non-tender Extremities: No Clubbing, No Edema, Normal Pulses - Labs 12/13/18 05:05 12/13/18 05:05 - Imaging Chest Xray: image reviewed - VTE Documentation of Mechanical Device: Graduated compression elastic hosiery Consult Discharge Plan - Plan Referrals: Evangelina Mehta MD [Partnered Physician] - 12/17/18 1:00 pm (Please follow up as schedule...)
[2018-12-15] MEDS: *HR* OxyCODONE/APAP 5/325 TABLET PO PRN ×4 (02:32→17:33)
[2018-12-15] MEDS: *HR* Heparin 5,000 UNIT/ML VIAL SQ SCH ×2 (05:31→17:28)
[2018-12-15] MEDS: Insulin LISPRO 300 UNITS/3 ML VIAL SQ SCH ×4 (07:53→20:13)
[2018-12-15] MEDS: Aspirin 81 MG TAB.CHEW PO SCH (08:15)
[2018-12-15] MEDS: Chlorhexidine Rinse 15 ML MOUTHWASH MM SCH ×2 (08:16→20:07)
[2018-12-15] MEDS: *HR* Promethazine 25 MG/ML VIAL IVP PRN ×2 (08:16→14:43)
--- NOTE | 2018-12-15 09:36 | Cardiothoracic Progress Note ---
Date of Encounter: 12/15/18 Time of Encounter: 09:35 - Assessment and plan (1) CAD (coronary artery disease) Current Visit: Yes Status: Acute The patient is recovering well from her CABG2. She began ambulating in the hallways yesterday without difficulty. She does complain of nausea this morning; however, the antiemetic medication appears to be helping. The assessment and plan as outlined above was discussed with the patient and/or family members who expressed understanding and agreement. All questions were answered. Qualifiers: Coronary Disease-Associated Artery/Lesion type: [place] artery [place] vs. transplanted heart: [place] heart Associated angina: with unspecified angina Qualified Code(s): I25.119 - Atherosclerotic heart disease of [place] coronary artery with unspecified angina pectoris - Subjective Procedure(s) Performed: POD#5 S/P CABG2 Interval history: The patient remained hemodynamically stable overnight. She complains of nausea this morning. Vital Signs, Last 4 Hours Temp Pulse Resp BP Pulse Ox 12/15/18 07:28 98.6 F 90 18 123/78 96 Oxgyen Flow Rate Oxygen Flow Rate (LPM) 2 Clinical Data, last 8 Hours Output, Urine Amount 200 Output, Urine Amount 100 Weight 12/13/18 12/14/18 12/15/18 23:59 23:59 23:59 Weight 87 kg 87.6 kg 87.3 kg - Physical Examination General: Conversant, No Apparent Distress Neck: No JVD, Normal carotid pulses Cardiac: Reg Rate and Rhythm, Normal S1 and S2, No Murmur Incision: No signs of infection, Dry/intact dressing Sternum: Stable Lungs: Normal Breath Sounds, No Wheeze, Rales, Rhonchi Neuro: Alert and responsive, No focal deficits noted Vascular: Normal capillary refill Extremities: No Clubbing, No Cyanosis, No Edema - Labs 12/13/18 05:05 12/13/18 05:05 - VTE Documentation of Mechanical Device: Graduated compression elastic hosiery Consult Discharge Plan - Plan Referrals: Evangelina Mehta MD [Partnered Physician] - 12/17/18 1:00 pm (Please follow up as schedule...)
[2018-12-15] MEDS: Ondansetron 4 MG/2 ML VIAL IVP PRN (12:20)
[2018-12-15] MEDS: Bisacodyl 10 MG RECTAL SUPPOSITORY RC PRN (14:42)
[2018-12-15] MEDS: Acetaminophen 325 MG TABLET PO PRN (14:43)
[2018-12-16] MEDS: *HR* OxyCODONE/APAP 5/325 TABLET PO PRN ×3 (00:04→10:55)
[2018-12-16] MEDS: *HR* Heparin 5,000 UNIT/ML VIAL SQ SCH (06:07)
[2018-12-16 07:50] VITALS: BP 122/84
[2018-12-16] MEDS: Insulin LISPRO 300 UNITS/3 ML VIAL SQ SCH (07:57)
--- NOTE | 2018-12-16 08:03 | Discharge Summary ---
Orders not resulted at time of discharge: Pending orders 12/05/18 09:21 Red Blood Cells [BBK] Routine Type and Screen [BBK] Routine Date of Encounter: 12/16/18 Time of Encounter: 08:03 - Discharge Diagnosis (1) CAD (coronary artery disease) Priority: Primary Status: Acute Qualifiers: Coronary Disease-Associated Artery/Lesion type: [place] artery [place] vs. transplanted heart: [place] heart Associated angina: with unspecified angina Qualified Code(s): I25.119 - Atherosclerotic heart disease of [place] coronary artery with unspecified angina pectoris - Hospital Course Hospital course: Ms. Youssef is a 48 year old type II diabetic, hypertensive lady with known CAD, known cerebrovascular disease, and hypercholesterolemia. She awoke with substernal chest pain and took 2 sublingual nitroglycerin tablets at home without relief. During her transport to [facility] she had spontaneous resolution of her pain. She was admitted to [facility] for further cardiac workup given her presenting symptoms and past medical history. The patient underwent cardiac catheterization on 12/04/2017 and was found to have severe 3 vessel CAD and it LVEF 50% (by nuclear stress test). In particular, the patient had a 90% proximal LAD lesion, a 70% mid LAD lesion, a 50% mid LCx lesion, a 70% proximal OM1 lesion, and a completely occluded proximal RCA. She was recommended for CABG; however, this was delayed for 5 days since the patient had been on Plavix. After the cardiac catheterization, she developed a right femoral artery pseudoaneurysm and noninvasive techniques were used to repair this condition. This was unsuccessful and the patient underwent CABG 2 and right renal artery pseudoaneurysm repair on 12/10/2018. Her postoperative course was uncomplicated and she was ambulating in the halls without difficulty. The patient was discharged home on POD#6. - Time Spent with Patient Total time spent providing and/or coordinating discharge services: - Discharge Medications Prescriptions: OxyCODONE/APAP 5/325 [Percocet 5/325 MG] 1 each PO Q4HR PRN 7 Days #42 tablet PRN Reason: Severe Pain Atorvastatin [Lipitor] 40 mg PO HS #30 tablet Metoprolol [Lopressor] 50 mg PO BID #60 tablet Home Medications: Aspirin [Lo-Dose Aspirin EC] 81 mg PO DAILY 01/17/18 [History] Atorvastatin [Lipitor] 40 mg PO HS #30 tablet 12/16/18 [Rx] Metoprolol [Lopressor] 50 mg PO BID #60 tablet 12/16/18 [Rx] OxyCODONE/APAP 5/325 [Percocet 5/325 MG] 1 each PO Q4HR PRN 7 Days #42 tablet 12/16/18 [Rx] Allergies/Adverse Reactions: Allergy/AdvReac Type Severity Reaction Status Date / Time codeine AdvReac Vomiting Verified 12/01/18 07:44 anesthesia AdvReac Drowsy Uncoded 12/01/18 07:44 Date of admission: 12/08/18 15:16 Primary care physician: PCP NONE Consults: 12/02/18 08:26 Consult to Lab Support Service Tech [CONS] Routine Reason for SW Consult: Patient not taking cardiac medications due to financial issues 12/03/18 11:55 Consult to Cardiology [CONS] Routine Comment: Consulting Provider: Cardiology [place] Reason for Consult: Abnormal stress test Call Completed: Yes 12/04/18 13:49 Consult to Cardiothoracic Surgery [CONS] Routine Consulting Provider: Cardiothoracic Surgery Branch Reason for Consult: open heart Call Completed: Yes 12/10/18 12:30 Consult to Cardiac Rehabilitation-Phase1 [CONS] Routine Comment: Reason for Consult: Post open heart Call Completed: Yes Consult to Lab Support Service Tech [CONS] Routine Reason for SW Consult: open heart 12/11/18 09:54 Consult for Pharmacy Education [CONS] Routine Reason for Consult: Post-Op Heart Call Completed: Yes Consult to Occupational Therapy [CONS] Routine Comment: Evaluate, develop and implement POC Reason for Consult: Post-Op Heart Does patient have active BEDREST order?: No Is patient medically & hemodynamically stable?: Yes Consult to Physical Therapy [CONS] Routine Comment: Evaluate, develop and implement POC Reason for Consult: Post open heart Does patient have active BEDREST order?: No Is patient medically & hemodynamically stable?: Yes Procedure(s) Performed: 1. Cardiac catheterization performed 12/04/2018. 2. CABG 2 (L CHRIST[place] to LAD, SVG to OM1) performed 12/10/2018. 3. Endoscopic vein harvesting, greater saphenous vein from right lower extremity performed 12/10/2018. 4. Right femoral artery pseudoaneurysm repair performed 12/10/2018. Discharging clinician: Tawanna Martinez Anticipated date of discharge: 12/16/18 Physical Examination Vital Signs, Last 4 Hours Temp Pulse Resp BP Pulse Ox 12/16/18 07:36 98.4 F 97 18 122/84 96 12/16/18 04:35 16 95 12/16/18 04:10 98.1 F General: Conversant, No Apparent Distress HEENT: Atraumatic, Normocephaly, Trachea midline Neck: No JVD, Normal carotid pulses Cardiac: Reg Rate and Rhythm, Normal S1 and S2, No Murmur Lungs: Normal Breath Sounds, No Wheeze, Rales, Rhonchi Neuro: Alert and responsive, No focal deficits noted Vascular: Normal capillary refill Abdomen: Soft, Non-tender Skin: No rashes noted on visualized skin Extremities: No Clubbing, No Cyanosis, No Edema, Normal Pulses - Patient Status Disposition: Home Health Service Condition: Good Functional capacity at discharge: independent ambulation Overall status at discharge: patient is progressing back to baseline - Discharge Instructions Follow Up With: Evangelina Mehta MD [Partnered Physician] - 12/24/18 1:00 pm (Please follow up as schedule...) Héctor Rush, [employer] EQUIPMENT OPERATOR [Advanced Practice Nurse] - (Office to call patient at home with follow up appointment) Ger Zarco MD [Partnered Physician] - 01/08/19 1:15 pm Tito Daly MD [Partnered Physician] - 12/31/18 10:45 am - Diet and Activity Activity: sternal precautions, no driving for four weeks, no lifting greater than 10 pounds for eight weeks Diet: diabetic diet [facility] Aspirin Cont/Prescribed at DC: Yes Beta Osman Cont/Prescribed at DC: Yes Statin Cont/Prescribed at DC: Yes TRAVIS/ARB Cont/Prescribed at DC: Not indicated (LVEF greater than 50%) - VTE Documentation of Mechanical Device: Graduated compression elastic hosiery
[2018-12-16] MEDS: Aspirin 81 MG TAB.CHEW PO SCH (08:08)
[2018-12-16] MEDS: Chlorhexidine Rinse 15 ML MOUTHWASH MM SCH (08:08)
--- NOTE | 2018-12-16 08:19 | Physician Discharge Referral ---
Home Health/Hosp Referral Info Transfer to: Home Health Attending Provider: Ger Zarco M.D. Provider in Charge Post Discharge: PCP - Diagnosis (1) CAD (coronary artery disease) Priority: Primary Status: Acute - Respiratory Orders Smoking Cessation: Smoking cessation has been advised. For more information, call the [place] Tobacco Quit Line at 5-413-LTKI-NOW. - Diet/Nutrition Diet/Nutrition Orders: Cardiac - Activity Activity Orders: Up ad joana, Ambulate - Services Needed Following services are medically necessary services: Physical Therapy, Occupational Therapy - Transfer Medications Prescriptions: OxyCODONE/APAP 5/325 [Percocet 5/325 MG] 1 each PO Q4HR PRN 7 Days #42 tablet PRN Reason: Severe Pain Atorvastatin [Lipitor] 40 mg PO HS #30 tablet Metoprolol [Lopressor] 50 mg PO BID #60 tablet Home Medications: Aspirin [Lo-Dose Aspirin EC] 81 mg PO DAILY 01/17/18 [History] Atorvastatin [Lipitor] 40 mg PO HS #30 tablet 12/16/18 [Rx] Metoprolol [Lopressor] 50 mg PO BID #60 tablet 12/16/18 [Rx] OxyCODONE/APAP 5/325 [Percocet 5/325 MG] 1 each PO Q4HR PRN 7 Days #42 tablet 12/16/18 [Rx] Allergies/Adverse Reactions: Allergy/AdvReac Type Severity Reaction Status Date / Time codeine AdvReac Vomiting Verified 12/01/18 07:44 anesthesia AdvReac Drowsy Uncoded 12/01/18 07:44 Certification: Further, I certify that my clinical findings support that this patient is homebound (i.e. absences from home require considerable and taxing effort and are for medical reasons or uatsdin services or infrequently or short duration when for other reasons) because: Homebound Reason: Post-surgery restriction and or conditions limit ability to leave home Attestation: My signature below is to certify that this patient is under my care and that I, or nurse practitioner, or a physician's project construction assistant manager working with me, has a [id number] encounter with this patient.
[2018-12-16] MEDS: Acetaminophen 325 MG TABLET PO PRN (09:33)
== END 2018-12-16 12:14 | disposition home health service (06) | DRG 234 ==
LOC: EMEROOARM 04:12 → 2SOUTHHOLD 04:12 → SUATTDRO 06:31 → 2SOUTHHOLD 07:08 → 2ANU 12-04 21:44 → ICNU 12-10 08:28 → 2NNU 12-11 18:15
PROVIDERS: ADMIT Internal Medicine; ATTEND Internal Medicine

== ENCOUNTER 2019-02-15 23:07 | Observation (INO) ==
--- NOTE | 2019-02-15 23:25 | Emergency Department Note ---
Disposition Clinical Impression: Dermatitis Disposition: Home, Self-Care Condition: Good Instructions: Dermatitis, Distribution Center Assistant (GEN) Reasons to Return/Additional Instructions: Follow-up with her primary care provider as discussed tomorrow morning Time of Disposition: 23:30 General Adult HPI - General Chief complaint: ED Chest Pain Stated complaint: cp nausea Time Seen by Provider: 02/15/19 23:11 Source: family Limitations: no limitations Nursing Notes Reviewed: Yes Vital Signs Reviewed: Yes - History of Present Illness HPI Narrative: 48-year-old female presents with her spouse according to the nurse's note for nausea and chest pain she says she does not have the symptoms that was gone for a few days ago the main reason she is here is this rash on her anterior abdominal wall that is burning and itching. Patient weeks ago had a laparoscopic cholecystectomy and then noticed that this rash the thought that this was cellulitis and she was she is now on her second course of antibiotics it spreads and goes away she shared cell phone pictures which shows the nature of its evanescence. No shortness of breath no weakness no recent fever or chills no recent weeping no recent new exposures other than the antibiotic she is on which she says she is not allergic to. No history of atopy in the past. Pain Scale: 8 - Related Data Home Medications Medication Instructions Recorded Confirmed Aspirin [Lo-Dose Aspirin EC] 81 mg PO DAILY 01/17/18 01/12/19 Metoprolol Tartrate 50 mg PO BID 01/12/19 01/12/19 Previous Rx's Medication Instructions Recorded Atorvastatin [Lipitor] 40 mg PO HS #30 tablet 12/16/18 Ticagrelor [Brilinta] 90 mg PO BID 60 Days #120 tablet 01/13/19 Allergies Allergy/AdvReac Type Severity Reaction Status Date / Time codeine AdvReac "PROJECTILE Verified 01/12/19 20:57 VOMITING" anesthesia AdvReac "PROJECTILE Uncoded 01/12/19 20:57 VOMITING" All systems ED: reviewed and negative except as stated. Integumentary: Reports: rash, pruritus, other (Burning sensation) Past Medical History - Past Medical History Attestation: Yes The following information was validated with the patient. Source: patient Medical history: Reports: coronary artery disease, diabetes, hyperlipidemia, hypertension, myocardial infarction, TIA Surgical history: Reports: angioplasty/stent, appendectomy, carotid endarterectomy, coronary bypass (CABG) Psychiatric history: Reports: no psych history SEAMER OPERATOR history: Reports: no SEAMER OPERATOR history - Social History Smoking Status: Former smoker Smokeless Tobacco Status: No Alcohol use: Reports: none Drug use: Reports: none Physical Exam - General Limitations: no limitations General appearance: alert, in no apparent distress - Head Head exam: atraumatic, normocephalic - Eye Eye exam: Present: normal appearance - ENT ENT exam: normal exam - Neck Neck exam: Present: normal inspection - Chest Chest inspection: Present: normal inspection - Respiratory Respiratory exam: Present: normal lung sounds bilaterally - Cardiovascular Cardiovascular exam: Present: regular rate, normal rhythm - Abdominal Exam Abdominal exam: Present: soft, Non-Tender, other (Central serpiginous border blanchable what appears to be confluent urticarial wheals. No signs of cellulitis or abscess formation tissue necrosis or crusting/weeping) - Extremities Exam Extremities exam: Present: normal inspection, full ROM - Expanded Lower Extremity Exam Neurovascular/Tendon exam: Present: normal capillary refill Gait: observed and normal - Back Exam Back exam: Present: normal inspection, full ROM - Neurological Exam Neurological exam: Present: alert, oriented X3 - Psychiatric Psychiatric exam: Present: normal affect - Skin Skin exam: Present: warm, dry, rash (As described previously) Course - Reevaluation(s) Reevaluation #1: Start from the rash patient's physical examination is benign its blanchable evanescent and urticarial in nature do not feel this is a cellulitis. The patient is ready been on pulse dose steroid she is on day 2 of 5 we will give the patient 50 of Benadryl orally 40 mg IM Kenalog patient discontinue her prednisone otherwise. Patient has a follow-up appointment tomorrow on February 16. I advised to keep this appointment. Questions answered reassurance given discharged in improved condition Time: 23:26 Vital Signs Temperature 98.7 F 02/15/19 23:13 Pulse Rate 93 02/15/19 23:13 Respiratory Rate 21 02/15/19 23:13 Blood Pressure 137/89 02/15/19 23:13 O2 Sat by Pulse Oximetry 98 02/15/19 23:13 Temperature 98.7 F 02/15/19 23:13 Pulse Rate 93 02/15/19 23:13 Respiratory Rate 21 02/15/19 23:13 Blood Pressure 137/89 02/15/19 23:13 O2 Sat by Pulse Oximetry 98 02/15/19 23:13 Oxygen Delivery Oxygen Delivery Room Air Medical Decision Making - EKG Data EKG #1 EKG attestation: Yes I reviewed and interpreted this EKG. EKG results narrative: Twelve-lead EKG interpreted without the benefit Cardiologic assistance shows sinus at 93 bpm normal [place] QRS and QT corrected. No acute ischemic changes are noted. Nonspecific ST-T changes appear to be present from a prior EKG dated 01/17/2019.
[2019-02-15] MEDS ORDERED: Nitroglycerin 1 INCH/GM PACKET TP ONE (23:43)
[2019-02-15] MEDS ORDERED: *HR* Morphine 2 MG/ML SYRINGE IVP ONE (23:43)
[2019-02-15] MEDS ORDERED: Ondansetron 4 MG/2 ML VIAL IVP ONE (23:43)
--- NOTE | 2019-02-15 23:57 | Emergency Department Note ---
Disposition Clinical Impression: Dermatitis Disposition: Home, Self-Care Condition: Good Instructions: Dermatitis, Wholesale Agronomist (GEN) Reasons to Return/Additional Instructions: Follow-up with her primary care provider as discussed tomorrow morning Forms: ED Satisfaction Letter Chest Pain HPI - General Chief Complaint: ED Chest Pain Stated Complaint: cp nausea Time Seen by Provider: 02/15/19 23:11 Source: family Limitations: no limitations Vital Signs Reviewed: Yes Nursing Notes Reviewed: Yes - History of Present Illness HPI Narrative: 48-year-old female former smoker had open heart surgery in November and December she got a stent she had 2 stents before open-heart surgery and presents with chest pain shortness of breath nausea and diaphoresis since 9:15 this evening while resting at home. Patient says that she tried taking some of her long acting and sublingual nitroglycerin but no change in her symptoms. Patient says that she had some loose stools yesterday but that is resolved. Patient says the pains about a 5 out of 10 at this time no radiation to the neck or arm. There is no diaphoresis visible. Patient's clinical technician is Dr. URBINA Severity scale (1-10): 8 - Related Data Home Medications Medication Instructions Recorded Confirmed Aspirin [Lo-Dose Aspirin EC] 81 mg PO DAILY 01/17/18 01/12/19 Metoprolol Tartrate 50 mg PO BID 01/12/19 01/12/19 Previous Rx's Medication Instructions Recorded Atorvastatin [Lipitor] 40 mg PO HS #30 tablet 12/16/18 Ticagrelor [Brilinta] 90 mg PO BID 60 Days #120 tablet 01/13/19 Allergies Allergy/AdvReac Type Severity Reaction Status Date / Time codeine AdvReac "PROJECTILE Verified 01/12/19 20:57 VOMITING" anesthesia AdvReac "PROJECTILE Uncoded 01/12/19 20:57 VOMITING" All systems ED: reviewed and negative except as stated. Constitutional: Reports: fever, chills Cardiovascular: Reports: chest pain, dyspnea on exertion Respiratory: Reports: dyspnea Gastrointestinal: Reports: nausea. Denies: vomiting Integumentary: Reports: rash, pruritus, other (Burning sensation) Chest Pain PMH - Past Medical History Medical history: Reports: coronary artery disease, diabetes, hyperlipidemia, hypertension, myocardial infarction, TIA Surgical history: Reports: angioplasty/stent, appendectomy, carotid endarterectomy, coronary bypass (CABG) Psychiatric history: Reports: no psych history SUGAR REFINERY SUPERVISOR history: Reports: no SUGAR REFINERY SUPERVISOR history - Social History Smoking Status: Former smoker Alcohol use: Reports: none Drug use: Reports: none Physical Exam - General Limitations: no limitations General appearance: alert, in no apparent distress - Head Head exam: atraumatic, normocephalic - Eye Eye exam: Present: normal appearance, PERRL - ENT ENT exam: normal exam, normal oropharynx - Neck Neck exam: Present: normal inspection, full ROM - Chest Chest inspection: Present: normal inspection, symmetric chest wall rise - Respiratory Respiratory exam: Present: normal lung sounds bilaterally - Cardiovascular Cardiovascular exam: Present: regular rate, normal rhythm - Abdominal Exam Abdominal exam: Present: soft, Non-Tender - Extremities Exam Extremities exam: Present: normal inspection, full ROM - Expanded Lower Extremity Exam Neurovascular/Tendon exam: Present: normal capillary refill Gait: observed and normal - Back Exam Back exam: Present: normal inspection, full ROM - Neurological Exam Neurological exam: Present: alert, oriented X3 - Psychiatric Psychiatric exam: Present: normal affect, normal mood - Skin Skin exam: Present: warm, dry, intact Course - Reevaluation(s) Reevaluation #1: Patient's physical examination is benign. EKG shows no acute ischemic changes. We will obtain chest x-ray screening labs including troponin. Patient is on Brilinta. Patient will be given one-inch Nitropaste to the anterior chest wall be given 4 mg parenteral morphine for pain control and a milligrams of Zofran for nausea control. Anticipated disposition is admission with Cardiologic consultation. Patient's HEART score is 5 Time: 23:58 Vital Signs Temperature 98.7 F 02/15/19 23:13 Pulse Rate 93 02/15/19 23:13 Respiratory Rate 21 02/15/19 23:13 Blood Pressure 137/89 02/15/19 23:13 O2 Sat by Pulse Oximetry 98 02/15/19 23:13 Temperature 98.7 F 02/15/19 23:13 Pulse Rate 93 02/15/19 23:13 Respiratory Rate 21 02/15/19 23:13 Blood Pressure 137/89 02/15/19 23:13 O2 Sat by Pulse Oximetry 98 02/15/19 23:13 Oxygen Delivery Oxygen Delivery Room Air Chest Pain - Medical Records Medical records reviewed: Yes I reviewed the patient's medical records. - Lab Data Lab results reviewed: Yes I reviewed the patient's lab results. - Radiology Data Radiology results reviewed: Yes I reviewed the patient's radiology results. - EKG Data EKG attestation: Yes I reviewed and interpreted this EKG. EKG results narrative: Twelve-lead EKG interpreted without the benefit of Cardiologic assistance shows sinus rhythm at [address]-T changes normal HI QRS and QT corrected. No acute changes in weight morphologies compared to a prior EKG dated 2318 Heart Score - Score History: Moderately Suspicious EKG: Non Specific repolarisation Disturbance Age: 45-65 Risk Factors: Equal/Greater than 3 risk factor or history of atherosclerotic disease Troponin: Less than normal limit (Patient understands that she will be admitted tonight and be seen by cardiology in the morning) HEART Score Total: 5
[2019-02-16 00:03] LABS: Basophils % 0.3 %; Eosinophils # 0.6 K/mcL (0.0-0.6); Eosinophils % 4.5 %; Hematocrit 36.5 % (35.3-44.9); Hemoglobin 11.6 g/dL (11.5-15.4); Immature Granulocytes % 0.4 % (0-4); Lymphocytes # 3.2 K/mcL (0.6-4.6); Lymphocytes % 25.3 %; Mean Corpuscular HGB Conc 31.8 g/dL (31.6-35.5); Mean Corpuscular Hemoglobin 28.3 pg (28.0-33.3); Mean Platelet Volume 10.8 fL (9.4-12.4); Monocytes # 0.9 K/mcL (0.0-1.3); Monocytes % 6.8 %; Platelet Count 291 K/mcL (140-400); Red Cell Distribution Width 13.6 % (11.5-14.5); Segmented Neutrophils % 62.7 %
[2019-02-16 00:11] LABS: Prothrombin Time 11.5 Seconds (9.4-12.1)
[2019-02-16 00:13] LABS: Activated Partial Thrombo Time 29.6 Seconds (26.0-36.0)
[2019-02-16 00:53] LABS: BUN/Creatinine Ratio 15 (6-26); Blood Urea Nitrogen 12 mg/dL (6-20); Carbon Dioxide 20 mEq/L (23-29); Chloride 106 mEq/L (98-107); Glucose 294 mg/dL (70-105); Osmolality,Calculated 295 (280-300); Potassium 3.8 mEq/L (3.5-5.1); Sodium 137 mEq/L (136-145); eGFR For Non-African Americans > 60 (> 60)
[2019-02-16 00:59] LABS: Troponin I 0.44 ng/mL (< 0.04)
--- NOTE | 2019-02-16 01:01 | Emergency Department Note ---
Disposition Clinical Impression: NSTEMI (non-ST elevated myocardial infarction) Disposition: Admitted As Inpatient Condition: Good Reasons to Return/Additional Instructions: Follow-up with her primary care provider as discussed tomorrow morning Referrals: Evangelina Mehta MD [Primary Care Provider] - Forms: ED Satisfaction Letter Time of Disposition: 01:16 Chest Pain HPI - General Chief Complaint: ED Chest Pain Stated Complaint: cp nausea Time Seen by Provider: 02/15/19 23:11 Source: family Limitations: no limitations - History of Present Illness Severity scale (1-10): 8 - Related Data Home Medications Medication Instructions Recorded Confirmed Aspirin [Lo-Dose Aspirin EC] 81 mg PO DAILY 01/17/18 02/16/19 Metoprolol Tartrate 50 mg PO BID 01/12/19 02/16/19 Isosorbide MONOnitrate [Isosorbide 30 mg PO DAILY 02/16/19 02/16/19 Mononitrate ER] Levothyroxine [Synthroid] 75 mcg PO 0630 02/16/19 02/16/19 Nitroglycerin [Nitrostat] 0.4 mg SL Q5M PRN 02/16/19 02/16/19 Omeprazole [PriLOSEC] 40 mg PO DAILY 02/16/19 02/16/19 Previous Rx's Medication Instructions Recorded Atorvastatin [Lipitor] 40 mg PO HS #30 tablet 12/16/18 Ticagrelor [Brilinta] 90 mg PO BID 60 Days #120 tablet 01/13/19 Allergies Allergy/AdvReac Type Severity Reaction Status Date / Time codeine AdvReac "PROJECTILE Verified 02/16/19 00:33 VOMITING" anesthesia AdvReac "PROJECTILE Uncoded 02/16/19 00:33 VOMITING" Constitutional: Reports: fever, chills Cardiovascular: Reports: chest pain, dyspnea on exertion Respiratory: Reports: dyspnea Gastrointestinal: Reports: nausea. Denies: vomiting Integumentary: Reports: rash, pruritus, other (Burning sensation) Chest Pain PMH - Past Medical History Medical history: Reports: coronary artery disease, diabetes, hyperlipidemia, hyp ertension, myocardial infarction, TIA Surgical history: Reports: angioplasty/stent, appendectomy, carotid endarterectomy, coronary bypass (CABG) Psychiatric history: Reports: no psych history VELVET WEAVER history: Reports: no VELVET WEAVER history - Social History Smoking Status: Former smoker Alcohol use: Reports: none Drug use: Reports: none Physical Exam - General Limitations: no limitations General appearance: alert, in no apparent distress Course - Reevaluation(s) Reevaluation #1: ED workup is complete. Chest x-ray read by radiology no acute process CBC and chemistry panel within normal limits PT INR within normal limits however critically elevated troponin 0.44 this higher than 1 taken previously which was 0.33. Patient's symptoms and troponin level are consistent with a non-ST elevation ME. Anticoagulation is being considered patient is on Brilinta. Hospitalist has been paged. Providing 45 minutes critical care service for this patient. Time: 01:00 Reevaluation #2: ED workup is completed. Presented the case to the hospitalist Dr. Cain who agreed with heparinization. Reexamine the patient she is actually sleeping she said her pain was 3 out of 10 clinical another dose of 4 mg of IV morphine. Heparin drip is been ordered. Patient is being admitted with the diagnosis of non-ST elevation ME. Cardiology consultation has been placed in the computer. Patient to be admitted in stable condition Time: 01:16 Vital Signs Temperature 98.7 F 02/15/19 23:13 Pulse Rate 93 02/15/19 23:13 Respiratory Rate 21 02/15/19 23:13 Blood Pressure 137/89 02/15/19 23:13 O2 Sat by Pulse Oximetry 98 02/15/19 23:13 Temperature 98.7 F 02/15/19 23:13 Pulse Rate 89 02/16/19 01:00 Respiratory Rate 14 02/16/19 01:00 Blood Pressure 106/69 02/16/19 01:00 O2 Sat by Pulse Oximetry 96 02/16/19 01:00 Oxygen Delivery Oxygen Delivery Room Air Chest Pain - Lab Data Result diagrams: 02/15/19 23:52 02/15/19 23:52 Lab Results 02/15/19 02/15/19 02/15/19 Range/Units 23:52 23:52 23:52 WBC 12.8 H (4.3-11.1) K/mcL RBC 4.10 (3.82-4.97) M/mcL Hgb 11.6 (11.5-15.4) g/dL Hct 36.5 (35.3-44.9) % MCV 89.0 (83.0-100.0) fL MCH 28.3 (28.0-33.3) pg MCHC 31.8 (31.6-35.5) g/dL RDW 13.6 (11.5-14.5) % Plt Count 291 (140-400) K/mcL MPV 10.8 (9.4-12.4) fL Immature Gran % 0.4 (0-4) % Seg Neutrophils % 62.7 % Lymphocytes % 25.3 % Monocytes % 6.8 % Eosinophils % 4.5 % Basophils % 0.3 % Neutrophils # 8.0 (1.6-8.9) K/mcL Lymphocytes # 3.2 (0.6-4.6) K/mcL Monocytes # 0.9 (0.0-1.3) K/mcL Eosinophils # 0.6 (0.0-0.6) K/mcL Basophils # 0.0 (0.0-0.2) K/mcL PT 11.5 (9.4-12.1) Seconds INR 1.0 APTT 29.6 (26.0-36.0) Seconds Sodium 137 (136-145) mEq/L Potassium 3.8 (3.5-5.1) mEq/L Chloride 106 (98-107) mEq/L Carbon Dioxide 20 L (23-29) mEq/L BUN 12 (6-20) mg/dL Creatinine 0.78 (0.60-1.20) mg/dL Est GFR ( Amer) > 60 (> 60) Est GFR (Non-Af Amer) > 60 (> 60) BUN/Creatinine Ratio 15 (6-26) Glucose 294 H (70-105) mg/dL Calculated Osmolality 295 (280-300) Calcium 9.0 (8.6-10.3) mg/dL Troponin I 0.44 H* (< 0.04) ng/mL
[2019-02-16] MEDS ORDERED: *HR* Heparin 5,000 UNIT/ML VIAL IVP PRN ×2 (01:08)
[2019-02-16] MEDS ORDERED: *HR* Heparin 5,000 UNIT/ML VIAL IVP ONE (01:08)
[2019-02-16] MEDS ORDERED: *HR* Morphine 2 MG/ML SYRINGE IVP ONE (01:17)
[2019-02-16 02:22] LABS: Hematocrit 34.5 % (35.3-44.9); Hemoglobin 11.5 g/dL (11.5-15.4); Mean Corpuscular HGB Conc 33.3 g/dL (31.6-35.5); Mean Corpuscular Volume 87.1 fL (83.0-100.0); Mean Platelet Volume 10.5 fL (9.4-12.4); Platelet Count 285 K/mcL (140-400); Red Blood Count 3.96 M/mcL (3.82-4.97); Red Cell Distribution Width 13.7 % (11.5-14.5)
[2019-02-16 02:26] LABS: Prothrombin Time 11.2 Seconds (9.4-12.1)
[2019-02-16] MEDS: Heparin 25,000 UNIT/250 ML D5W 25,000 UNIT/250 ML IV.SOLN IVC SCH (02:44)
--- NOTE | 2019-02-16 08:38 | Internal Med History&Physical ---
<Santosh Andres - Last Filed: 02/16/19 09:05> Date of Encounter: 02/16/19 Time of Encounter: 09:05 Internal Medicine - H&P: HPI Chief complaint: Chest pain Admitted From: Emergency Dept Plans for Post Hospital Care: Home History of present illness: Ms. Youssef is a 48 year old female with past medical history of hypertension, hyperlipidemia, Ormund's syndrom (retroperitoneal firbosis) CAD status post 2 vessel CABG and multiple stents in 01/13 who presented to the ED in the late evening due to chest pain, nausea, shortness of breath and diaphoresis that started at 9 PM last night while lying. The patient states that she was lying flat at rest when the chest pain started. The chest pain was substernal with radiation to her left arm. She has had these symptoms multiple times in the past and they have often related to heart attacks so she came to the ED. Nothing seemed to make the pain better or worse. She does have nitroglycerin at home however she said that she took it and it was not helpful. Rest did not seem to help. She said that she had a few episodes of vomiting on her ride to the ED. She admits to 24 hours of profuse watery diarrhea prior to this episode. Otherwise she has no acute complaints. In the ED the patient did receive nitro paste, and labs were essentially unremarkable with the exception of a troponin which was 0.44 with a peak of 0.55. The patient was started on a heparin drip and admitted to hospitalist service for rule out of ACS. Past Med Surg Social Fam HX - Past Medical History Medical history: coronary artery disease, diabetes, hyperlipidemia, hypertension, myocardial infarction, TIA Additional medical history: Ormands disease Psychiatric history: no psych history - Past Surgical History Surgical History: angioplasty/stent, appendectomy, carotid endarterectomy, coronary bypass (CABG) Additional surgical history: Multiple urinary stent placement. [place] teeth rem oval. CABG (double bypass). PRK - Social History Smoking Status: Former smoker Smokeless Tobacco Status: No Alcohol use: none Drug use: none - Family History Brother Family Member Ethnicity: Non- Living Status: Still Living Father Family Member Ethnicity: Non- Living Status: Hx Family Cardiac Disorders: Yes Mother Family Member Ethnicity: Non- Living Status: Hx Family Cardiac Disorders: Yes (Heart disease) Hx Family Respiratory Disorders: Yes (Emphysema) Hx Family Endocrine Disorder: Yes (DM) Sister Family Member Ethnicity: Non- Living Status: Still Living Internal Medicine - H&P: Meds RX: Aspirin [Lo-Dose Aspirin EC] 81 mg PO DAILY 01/17/18 [History] RX: Atorvastatin [Lipitor] 40 mg PO HS #30 tablet 12/16/18 [Rx] RX: Metoprolol Tartrate 50 mg PO BID 01/12/19 [History] RX: Ticagrelor [Brilinta] 90 mg PO BID 60 Days #120 tablet 01/13/19 [Rx] Isosorbide MONOnitrate [Isosorbide Mononitrate ER] 30 mg PO DAILY 02/16/19 [History] Levothyroxine [Synthroid] 75 mcg PO 0630 02/16/19 [History] Nitroglycerin [Nitrostat] 0.4 mg SL Q5M PRN 02/16/19 [History] Omeprazole [PriLOSEC] 40 mg PO DAILY 02/16/19 [History] Allergy/AdvReac Type Severity Reaction Status Date / Time codeine AdvReac "PROJECTILE Verified 02/16/19 00:33 VOMITING" anesthesia AdvReac "PROJECTILE Uncoded 02/16/19 00:33 VOMITING" All Systems PM: A 10-system review of systems was performed and is negative for pertinent findings except as documented above in the HPI. Review of systems: Constitutional: Denies fevers, chills, weight loss, generalized fatigue Head/Neck: Denies BLANC, neck stiffness EENT: Denies vision changes/blurriness, rhinorrhea, congestion, sore throat CVS: Denies MIGUEL, orthopnea, edema, PND. Admits to chest pains, diaphoresis Pulm: Denies SOB, cough, sputum, hemoptysis, wheezing GI: Denies abdominal pain, constipation, melena, hematemasis. Admits to diarrhea for 24 hours prior to chest pains and nausea and vomiting at the time of the chest pain : Denies dysuria, increased frequency, urgency, hematuria Heme: Denies ease of bleeding or bruising MSK: Denies joint pain, limited ROM Skin: Denies rashes, ulcers, color changes Neuro: Denies BLANC, paresthesias, focal deficits, ataxia - Constitutional Vitals: Temp Pulse Resp BP Pulse Ox 99.0 F 79 17 125/78 95 02/16/19 07:34 02/16/19 07:34 02/16/19 07:34 02/16/19 07:34 02/16/19 07:34 Exam: Gen: Vitals noted. No acute distress. Eyes: anicteric sclerae, moist conjunctivae; no lid-lag; Pupils equal and reactive to light HENT: Atraumatic; oropharynx clear with moist mucous membranes and no mucosal ulcerations; normal hard and soft palate Neck: Trachea midline; supple, no thyromegaly or lymphadenopathy Cardiac: RRR, no murmur, +S1/S2 Pulmonary: CTA bilaterally, no wheezes, rales or rhonchi, equal chest expansion Abdomen: soft, nontender, no guarding. No masses or hepatosplenomegaly MSK: ROM intact, no joint swelling noted Extremities: no BLE edema, nontender calf, no cyanosis or clubbing Skin: Normal temperature, turgor and texture; no rash, ulcers or subcutaneous nodules Neuro: moves all extremities, no focal deficits. Psych: Appropriate mood and behavior. A&Ox3 Internal Med - H&P Results - Labs CBC & Chem 7: 02/16/19 02:08 02/15/19 23:52 Labs: Short CBC 02/15/19 02/16/19 Range/Units 23:52 02:08 WBC 12.8 H 12.0 H (4.3-11.1) K/mcL Hgb 11.6 11.5 (11.5-15.4) g/dL Hct 36.5 34.5 L (35.3-44.9) % Plt Count 291 285 (140-400) K/mcL Neutrophils # 8.0 (1.6-8.9) K/mcL BMP 02/15/19 23:52 Sodium 137 Potassium 3.8 Chloride 106 Carbon Dioxide 20 L BUN 12 Creatinine 0.78 Glucose 294 H Calcium 9.0 Cardiac Enzymes 02/15/19 02/16/19 Range/Units 23:52 05:28 Troponin I 0.44 H* 0.55 H* (< 0.04) ng/mL - Impressions ITS Impressions Chest X-Ray 02/15/19 23:44 IMPRESSION: Pulmonary nodule in the left apex. Nonemergent chest CT is recommended for further evaluation. D/ / Darius Ledesma MD / Darius Ledesma MD Interpreting Provider: Darius Ledesma MD - Assessment and Plan (1) NSTEMI (non-ST elevated myocardial infarction) Current Visit: Yes Status: Acute Assessment and plan: History of Severe 3 vessel disease, s/p 2v CABG w/ patent grafts [facility] 01/13 with PTCA/KAVITA to Distal ODOM Presented with Chest pain, elevated trop peak of 0.55, on heparin drip Repeat EKG this morning NPO pending cardiology consult Cardiology consultation (2) CAD (coronary artery disease) Current Visit: Yes Status: Chronic Assessment and plan: Severe multivessel disease as above Continue ASA, Statin, BB, Imdur, NTG, Brilinta Qualifiers: Coronary Disease-Associated Artery/Lesion type: unspecified vessel or lesion type [place] vs. transplanted heart: [place] heart Associated angina: with unstable angina Qualified Code(s): I25.110 - Atherosclerotic heart disease of [place] coronary artery with unstable angina pectoris (3) Diabetes mellitus Current Visit: Yes Status: Chronic Assessment and plan: DM with hyperglycemia, BG 290 Q6h Accucheck with SSI Check a1c Qualifiers: Diabetes mellitus type: type 2 Diabetes mellitus care home insulin use: without termite treater use Diabetes mellitus complication status: without complication Qualified Code(s): E11.9 - Type 2 diabetes mellitus without complications (4) Obesity (BMI 30.0-34.9) Current Visit: Yes Status: Chronic (5) HLD (hyperlipidemia) Current Visit: No Status: Chronic Assessment and plan: Continue statin Qualifiers: Hyperlipidemia type: unspecified Qualified Code(s): E78.5 - Hyperlipidemia, unspecified (6) Hypothyroidism Current Visit: No Status: Chronic Assessment and plan: Continue synthroid Qualifiers: Hypothyroidism type: unspecified Qualified Code(s): E03.9 - Hypothyroidism, unspecified (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 Youssef is a 48 year old female All Systems PM: A 10-system review of systems was performed and is negative for pertinent findings except as documented above in the HPI. - Constitutional Vitals: Temp Pulse Resp BP Pulse Ox 98.4 F 95 99 169/102 95 02/16/19 11:37 02/16/19 18:20 02/16/19 18:20 02/16/19 18:20 02/16/19 11:37 Internal Med - H&P Results - Labs CBC & Chem 7: 02/16/19 02:08 02/15/19 23:52 Labs: Short CBC 02/15/19 02/16/19 Range/Units 23:52 02:08 WBC 12.8 H 12.0 H (4.3-11.1) K/mcL Hgb 11.6 11.5 (11.5-15.4) g/dL Hct 36.5 34.5 L (35.3-44.9) % Plt Count 291 285 (140-400) K/mcL Neutrophils # 8.0 (1.6-8.9) K/mcL BMP 02/15/19 23:52 Sodium 137 Potassium 3.8 Chloride 106 Carbon Dioxide 20 L BUN 12 Creatinine 0.78 Glucose 294 H Calcium 9.0 Cardiac Enzymes 02/15/19 02/16/19 Range/Units 23:52 05:28 Troponin I 0.44 H* 0.55 H* (< 0.04) ng/mL - Impressions ITS Impressions Chest X-Ray 02/15/19 23:44 IMPRESSION: Pulmonary nodule in the left apex. Nonemergent chest CT is recommended for further evaluation. D/ / Darius Ledesma MD / Darius Ledesma MD Interpreting Provider: Darius Ledesma MD - Assessment and Plan (1) NSTEMI (non-ST elevated myocardial infarction) Current Visit: Yes Status: Acute (2) CAD (coronary artery disease) Current Visit: Yes Status: Chronic Qualifiers: Coronary Disease-Associated Artery/Lesion type: unspecified vessel or lesion type [place] vs. transplanted heart: [place] heart Associated angina: with unstable angina Qualified Code(s): I25.110 - Atherosclerotic heart disease of [place] coronary artery with unstable angina pectoris (3) HTN (hypertension) Current Visit: No Status: Chronic Qualifiers: Hypertension type: essential hypertension Qualified Code(s): I10 - E ssential (primary) hypertension (4) HLD (hyperlipidemia) Current Visit: No Status: Chronic Qualifiers: Hyperlipidemia type: unspecified Qualified Code(s): E78.5 - Hyperlipidemia, unspecified (5) Diabetes mellitus Current Visit: Yes Status: Chronic Qualifiers: Diabetes mellitus type: type 2 Diabetes mellitus care home insulin use: without care home use Diabetes mellitus complication status: without complication Qualified Code(s): E11.9 - Type 2 diabetes mellitus without complications (6) Hx-TIA (transient ischemic attack) Current Visit: No Status: Chronic (7) Hypothyroidism Current Visit: No Status: Chronic Qualifiers: Hypothyroidism type: unspecified Qualified Code(s): E03.9 - Hypothyroidism, unspecified (8) Obesity (BMI 30.0-34.9) Current Visit: Yes Status: Chronic (9) Mt's disease Current 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 I agree with the documented findings, disposition and treatment plan as described except to the extent set forth below.
[2019-02-16] MEDS ORDERED: Naloxone 0.4 MG/ML INJ IVP PRN (08:41)
--- NOTE | 2019-02-16 08:48 | Cardiology Consult Note ---
<William Sapp - Last Filed: 02/16/19 10:23> Date of Encounter: 02/16/19 Time of Encounter: 08:39 Assessment and Plan (1) NSTEMI (non-ST elevated myocardial infarction) Current Visit: Yes Status: Acute 48 year old female with a history of severe three vessel coronary artery disease s/p CABG 2 of 2 patent bypass grafts and recent successful PTCA/Drug-Eluting Stent placement in the distal ODOM on 01/12/19 presented complaining of chest pain, nausea, shortness of breath, and diaphoresis. Symptoms improved with nitroglycerin paste and Morphine in the ED. Serial troponins peaked at 0.55 and patient was started on a heparin drip. EKG revealed new T wave inversions in lead V2 NPO, anticipate LHC today. (2) CAD (coronary artery disease) Current Visit: Yes Status: Chronic LHC 01/12/19: Severe three vessel coronary artery disease s/p CABG 2 of 2 patent bypass grafts. Patient had successful PTCA/Drug-Eluting Stent placement in the distal ODOM. Continue aspirin, Brilinta, beta mireille, statin, Imdur, and nitroglycerin. Aggressive risk factor modification. Qualifiers: Coronary Disease-Associated Artery/Lesion type: unspecified vessel or lesion type [place] vs. transplanted heart: [place] heart Associated angina: with unstable angina Qualified Code(s): I25.110 - Atherosclerotic heart disease of [place] coronary artery with unstable angina pectoris (3) HTN (hypertension) Current Visit: No Status: Chronic Blood pressure controlled. Continue beta mireille and Imdur. Qualifiers: Hypertension type: essential hypertension Qualified Code(s): I10 - Essential (primary) hypertension (4) HLD (hyperlipidemia) Current Visit: No Status: Chronic Continue statin. Qualifiers: Hyperlipidemia type: unspecified Qualified Code(s): E78.5 - Hyperlipidemia, unspecified (5) Diabetes mellitus Current Visit: Yes Status: Chronic Management per primary team. 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 (8) Hypothyroidism Current Visit: No Status: Chronic Management per primary team. Qualifiers: Hypothyroidism type: unspecified Qualified Code(s): E03.9 - Hypothyroidism, unspecified (9) Obesity (BMI 30.0-34.9) Current Visit: Yes Status: Chronic Lifestyle modification. Discussion w patient/family: The assessment and plan as outlined above was discussed with the patient and/or family members who expressed understanding and agreement. All questions were answered. Thank you for involving us in the care of your patient. Please call with any questions. History of Present Illness Consult date: 02/16/19 Requesting physician: Ahmet Roberts Consult reason: NSTEMI,PERSISTENT PAIN. TROP 0.44, CONSIDER CARDIAC CATH Chief complaint: Chest pain History of present illness: Ms. Youssef is a 48 year old female with a past medical history of hypertension, hyperlipidemia, CAD s/p two-vessel CABG in November 2018 and cardiac KAVITA in December 2018, carotid endarterectomy, TIA, and Retroperitoneal fibrosis (Mt's disease) who presented to the ED complaining of chest pain, nausea, vomiting, shortness of breath, and diaphoresis since 9 PM last night. Symptoms did not improving with nitroglycerin. She was started on nitroglycerin paste and Morphine in the ED with improvement in symptoms. EKG revealed new T wave inversions in V2. Serial troponins peaked at 0.55 and patient was started on a heparin drip. Previous testing: [facility] 01/12/19: Severe three vessel coronary artery disease s/p CABG 2 of 2 patent bypass grafts. Patient had successful PTCA/Drug-Eluting Stent placement in the distal ODOM. She was previously evaluated at [facility] after recent hospitalization and sees Dr. Ruiz as an outpatient. Past Med Surg Social Fam HX - Past Medical History Medical history: coronary artery disease, diabetes, hyperlipidemia, hypertension, myocardial infarction, TIA Additional medical history: Ormands disease Psychiatric history: no psych history - Past Surgical History Surgical History: angioplasty/stent, appendectomy, carotid endarterectomy, coronary bypass (CABG) Additional surgical history: Multiple urinary stent placement. [place] teeth removal. CABG (double bypass). PRK - Social History Smoking Status: Former smoker Smokeless Tobacco Status: No Alcohol use: none Drug use: none - Family History Father Family Member Ethnicity: Non- Living Status: Age at : 42 Cause of : MS Hx Family Cardiac Disorders: Yes (MS) Mother Family Member Ethnicity: Non- Living Status: Cause of : Leukemia Hx Family Cardiac Disorders: Yes (Heart disease) Hx Family Respiratory Disorders: Yes (Emphysema) Hx Family Cancer: Yes (Leukemia) Hx Family Endocrine Disorder: Yes (DM) Brother Family Member Ethnicity: Non- Living Status: Still Living Sister Family Member Ethnicity: Non- Living Status: Still Living Medications and Allergies Aspirin [Lo-Dose Aspirin EC] 81 mg PO DAILY 01/17/18 [History] Atorvastatin [Lipitor] 40 mg PO HS #30 tablet 12/16/18 [Rx] Metoprolol Tartrate 50 mg PO BID 01/12/19 [History] Ticagrelor [Brilinta] 90 mg PO BID 60 Days #120 tablet 01/13/19 [Rx] Isosorbide MONOnitrate [Isosorbide Mononitrate ER] 30 mg PO DAILY 02/16/19 [History] Levothyroxine [Synthroid] 75 mcg PO 0630 02/16/19 [History] Nitroglycerin [Nitrostat] 0.4 mg SL Q5M PRN 02/16/19 [History] Omeprazole [PriLOSEC] 40 mg PO DAILY 02/16/19 [History] Allergy/AdvReac Type Severity Reaction Status Date / Time codeine AdvReac "PROJECTILE Verified 02/16/19 00:33 VOMITING" anesthesia AdvReac "PROJECTILE Uncoded 02/16/19 00:33 VOMITING" All Systems Review: The remainder of the systems were reviewed and are negative - Constitutional Constitutional: no chills, no fever(s), no headache(s) - EENT Nose, mouth and throat: no dysphagia, no sore throat - Cardiovascular Cardiovascular: chest pain at rest, chest pain with exertion, diaphoresis, dyspnea at rest, dyspnea on exertion - Respiratory Respiratory: dyspnea, no cough - Gastrointestinal Gastrointestinal: nausea, no abdominal pain - Genitourinary Genitourinary: no dysuria, no hematuria - Musculoskeletal Musculoskeletal: no back pain, no myalgias - Neurological Neurological: no dizziness, no numbness, no tingling - Psychiatric Psychiatric: no anxiety, no depression - Hematological/Lymphatic Hematologic/Lymphatic: no easy bleeding, no easy bruising Physical Examination Vital Signs, Last 4 Hours Temp Pulse Resp BP Pulse Ox 03/25/19 07:34 99.0 F 79 17 125/78 95 General: Conversant, No Apparent Distress HEENT: Atraumatic, Normocephaly Neck: No JVD Cardiac: Reg Rate and Rhythm, Normal S1 and S2 Lungs: Normal Breath Sounds, No Wheeze, Rales, Rhonchi Neuro: Alert and responsive, No focal deficits noted Abdomen: Soft, Non-Tender Skin: No rashes noted on visualized skin Musculoskeletal: No Chest Wall Tenderness Extremities: No Clubbing, No Cyanosis, No Edema, Normal Pulses Results 02/16/19 02:08 02/15/19 23:52 Lab Results 02/15/19 02/15/19 02/15/19 23:52 23:52 23:52 WBC 12.8 H Hgb 11.6 Hct 36.5 Plt Count 291 INR 1.0 APTT 29.6 Sodium 137 Potassium 3.8 Chloride 106 Carbon Dioxide 20 L BUN 12 Creatinine 0.78 Glucose 294 H Calcium 9.0 Troponin I 0.44 H* 02/16/19 02/16/19 02/16/19 02:08 02:08 05:28 WBC 12.0 H Hgb 11.5 Hct 34.5 L Plt Count 285 INR 1.0 APTT Sodium Potassium Chloride Carbon Dioxide BUN Creatinine Glucose Calcium Troponin I 0.55 H* - Imaging and Cardiology Chest Xray: report reviewed - EKG Interpretation EKG results cardiology: personally reviewed (Sinus rhythm heart rate 93, New T wave inversions in V2 compared to previous EKG 01/17/19) Consult Discharge Plan - Plan Referrals: Evangelina Mehta MD [Primary Care Provider] - <Helen Villalobos - Last Filed: 02/16/19 14:39> Date of Encounter: 02/16/19 - Attending Attestation I independently examined this patient and my medical decision-making was reviewed with the Resident Physician. I agree with the documented findings, disposition and treatment plan. Ms. Youssef presents with NSTEMI, troponin now 0.55. Recent CABG in November and then LHC in December with severe disease ODOM-LAD s/p PCI. Denies missing any doses of DAPT. Discussed case with Dr. Ruiz who knows her well. Recommend [facility] today. R/B/A of [facility] discussed with patient who expresses understanding and agreement to proceed. Assessment and Plan Discussion w patient/family: The assessment and plan as outlined above was discussed with the patient and/or family members who expressed understanding and agreement. All questions were answered. Thank you for involving us in the care of your patient. Please call with any questions. History of Present Illness History of present illness: Ms. Youssef is a 48 year old female All Systems Review: The remainder of the systems were reviewed and are negative Physical Examination Vital Signs, Last 4 Hours Temp Pulse Resp BP Pulse Ox 02/16/19 11:37 98.4 F 72 16 117/65 95 Results 02/16/19 02:08 02/15/19 23:52 Lab Results 02/15/19 02/15/19 02/15/19 23:52 23:52 23:52 WBC 12.8 H Hgb 11.6 Hct 36.5 Plt Count 291 INR 1.0 APTT 29.6 Sodium 137 Potassium 3.8 Chloride 106 Carbon Dioxide 20 L BUN 12 Creatinine 0.78 Glucose 294 H Calcium 9.0 Troponin I 0.44 H* 02/16/19 02/16/19 02/16/19 02:08 02:08 05:28 WBC 12.0 H Hgb 11.5 Hct 34.5 L Plt Count 285 INR 1.0 APTT Sodium Potassium Chloride Carbon Dioxide BUN Creatinine Glucose Calcium Troponin I 0.55 H*
[2019-02-16] MEDS ORDERED: *HR* Dextrose 50 % in Water (Syg) 50 ML SYRINGE IVP PRN (08:49)
[2019-02-16] MEDS ORDERED: Dextrose Gel 15 GM/37.5 ML TUBE PO PRN ×2 (08:49)
[2019-02-16] MEDS ORDERED: D5% in Water 1,000 ML IVC PRN (08:49)
[2019-02-16] MEDS ORDERED: Isosorbide MONOnitrate (24 HR) 30 MG TAB.ER.24H PO SCH (09:00)
[2019-02-16] MEDS: Aspirin Enteric Coated 81 MG Tablet PO SCH (09:47)
[2019-02-16] MEDS: *HR* Ticagrelor 90 MG TABLET PO SCH ×2 (09:51→20:34)
[2019-02-16 09:53] LABS: Estimated Average Glucose 177 mg/dl; Hemoglobin A1C 7.8 %
[2019-02-16] MEDS: Insulin LISPRO 300 UNITS/3 ML VIAL SQ SCH ×2 (12:02→18:03)
[2019-02-16] MEDS ORDERED: *HR* Heparin 10,000 UNIT/10 ML VIAL ONE (15:56)
[2019-02-16] MEDS ORDERED: Heparin 1,000 UNITS/500 mL 500 ML ONE (15:57)
[2019-02-16] MEDS ORDERED: 0.9 % Sodium Chloride 1,000 ML ONE ×2 (15:57)
[2019-02-16] MEDS ORDERED: *HR* Midazolam HCl 2 MG/2 ML VIAL ONE (16:05)
[2019-02-16] MEDS ORDERED: *HR* FentaNYL (PF) 100 MCG/2 ML VIAL ONE (16:05)
[2019-02-16] MEDS ORDERED: Nitroglycerin 1,000 MCG/10 ML VIAL IV ONE (16:29)
--- NOTE | 2019-02-16 17:35 | Invasive Diagnostic Lab Proc ---
Name: Benita Youssef Date of Study: 02/16/2019 Date: 1970 Ht: 65.0in Medical Record#: [id number] Age: 48 Wt: 191.80lb Gender: Female BSA: 1.94 Order #: [id number] BMI: 31.96 Physicians Procedure Physician: Cheryle Ruiz MD Referring MD: Referring MD: Staff Name Position Time In Jaime Messer RN Monitor 04:02 PM Sandra West RT (R) Scrub 04:02 PM Kevin Shen RN Assistant Site Manager 04:02 PM Gene Allen RN Assistant Site Manager 04:02 PM Indications Indication Non-Stemi Procedures Performed Procedure L HRT ART/GRFT ANGIO Pre-Procedure Checklist Informed consent is complete signed and on chart. H&P is on chart. ID band is on and ID verified with patient. Patient NPO for procedure The procedure was described for the patient and questions were answered. ECG is on chart. Plan of Care Patient will tolerate the procedure without complications. Adequate level of comfort will be maintained. Hemodynamics will remain stable Patient will recover from procedure without complications. Respiratory function will be maintained. Cardiac rhythm will remain stable. Patient temperature will be maintained. Patient and/or family have verbalized understanding of the procedure. Patient Education Chief Complaint/Reason for Test: Cardiac Cath Developmental Category: Adult (18-64 years) Developmentally Appropriate for Age: Yes Learning Barriers: None Education Needs: Plan of Care Education Method: Verbal Information Taught: Cardiac Cath Educational Evaluation: Able to repeat information Intravenous Access Time IV Size Location DC'd Fluid/Drip Rate Units RN 20g 1 11/28" Patent On Arrival 0.9NaCl ml/hr Allergies codeine anesthesia Vital Signs Time BP (mmHg) HR (bpm) O2 Sat. RR (bpm) LOC 04:01 PM / % 5 = Fully awake and oriented or at pre-proc level 04:01 PM / % 5 = Fully awake and oriented or at pre-proc level 04:07 PM / % 4 = Oriented but drowsy 04:22 PM / % 04:09 PM 129 / 66 81 96 % 11 04:14 PM 116 / 68 74 95 % 20 04:19 PM 104 / 55 77 95 % 11 04:24 PM 110 / 60 77 99 % 11 04:30 PM 134 / 80 76 98 % 10 04:34 PM 118 / 69 82 98 % 8 04:39 PM 117 / 66 84 98 % 8 04:44 PM 128 / 83 86 97 % 9 05:24 PM 109 / 66 71 95 % 14 5 = Fully awake and oriented or at pre-proc level Procedural Medications Time Medication Dose Units Method Given By 04:07 PM Oxygen 2 L/min nasal cannula Gene Allen RN 04:14 PM Versed 1 mg Intravenous Gene Allen RN 04:15 PM Fentanyl 50 mcg Intravenous Gene Allen RN 04:22 PM Lidocaine 2% 19 ml Subcutaneous Cheryle Ruiz MD 04:23 PM Fentanyl 25 mcg Intravenous Gene Allen RN 04:29 PM Versed 0.5 mg Intravenous Gene Allen RN 04:30 PM Nitroglycerin 200 mcg Intracoronary Sterling Ruiz MD 04:31 PM Nitroglycerin 200 mcg Intracoronary Sterling Ruiz MD 04:34 PM Nitroglycerin 100 mcg Intracoronary Sterling Ruiz MD Bart Score Preprocedure Postprocedure Activity 2- Moves 4 extremities sustained head lift Activity 2- Moves 4 extremities sustained head lift Circulation 2- SBP +/= 20 points of pre-anesthetic level Circulation 2- SBP +/= 20 points of pre-anesthetic level Consciousness 2- Awake and alert oriented x 3 Consciousness 2- Awake and alert oriented x 3 O2 Saturation 2- Able to maintain O2 satruation of 92% on room air O2 Saturation 2- Able to maintain O2 satruation of 92% on room air Respiratory 2- Able to deep breathe and cough well Respiratory 2- Able to deep breathe and cough well Total Score 10 Total Score 10 Contrast Agent: Isovue Diagnostic Contrast: 57 ml Total Contrast: 57 ml Fluoro Dose: 37 mGy Activated Clotting Time Time Seconds to Clot 04:51 PM 125 Procedure Log Time Note Enter By 04:01 PM Pt arrived to prosthetics lab technician 1 at 16:01 betsy 04:01 PM Patient charges- Angio tray pack, Navilyst 3mm J, Pulse Oximetry and ACIST tubing and transducer betsy 04:01 PM Case Delayed no betsy 04:01 PM Time: 16:01 Patient comfortable and pain free: Yes betsy 04:01 PM Time: 16:01LOC: 5 = Fully awake and oriented or at pre-proc level betsy 04:02 PM Physician arrived 16:02 joryan 04: PM Meet and greet completed [facility] 04: PM Sign in performed according to hospital policy. Informed consent was obtained. 04: PM Procedure start 16:: PM Jaime Messer RN Position: Monitor Time in: : 04:02 PM Jenna Sandra RT (R) Position: Scrub Time in: :[facility] 04: PM Kevin Shen RN Position: Assistant Site Manager Time in: :[facility] 04: PM Gene Allen RN Position: Assistant Site Manager Time in: :[facility]: PM Time: 16:07 Oxygen on at 2 L/min per nasal cannula by Gene Allen RN cedwards 04:07 PM Time: 16:01 Patient comfortable and pain free: Yes cedwards 04:07 PM Time: 16:01LOC: 5 = Fully awake and oriented or at pre-proc level cedwards 04:07 PM Clinical Presentation: Non-STEMI cedwards 04:08 PM Vitals capture started with the following parameters, Patient=Adult, Interval=5 min, Initial Yhfebevz=957 mmHg, Deflation Rate=3 mmHg, Cuff placed on Right Arm 04:08 PM Case Start 04:08 PM CathStat 04:09 PM HR=81 bpm, AMBN=583/66 mmhg, SpO2=96.0 %, Resp=11 B/min, Comment=NSR 04:10 PM Recorded ECG: HR=79 Condition=Condition 1 04:14 PM HR=74 bpm, ERDS=912/68 mmhg, SpO2=95.0 %, Resp=20 B/min, EtCO2=38 mmHg 04:15 PM Time: 16:14 Versed 1 mg Intravenous Given by Gene Allen RN cedwards 04:15 PM Time: 16:15 Fentanyl 50 mcg Intravenous Given by Gene Allen RN cedwards 04:19 PM HR=77 bpm, BOMT=957/55 mmhg, SpO2=95.0 %, Resp=11 B/min, EtCO2=30 mmHg 04:22 PM Time: 16:07 Patient comfortable and pain free: Yes cedwards :22 PM Time: 16:07LOC: 4 = Oriented but drowsy cedwards 04:22 PM Time out was performed according to hospital policy. Conscious sedation and anesthesia was achieved (see medication log with in this report above) cedwards 04:23 PM Time: 16:22 19 ml Lidocaine 2% to right groin Subcutaneous Given by Cheryle Ruiz MD cedwards 04:23 PM Time: 16:23 Fentanyl 25 mcg Intravenous Given by Gene Allen RN cedwards 04:24 PM Micro-Introducer Kit utilized for sheath placement cedwards 04:24 PM HR=77 bpm, ZJKM=041/60 mmhg, SpO2=99.0 %, Resp=11 B/min 04:25 PM Access obtained by percutaneous puncture. 6Fr 10cm Terumo [place] sheath placed in right Femoral artery. [id number] cedwards 04:25 PM 0.035 145cm Navilyst 3mmJ wire [id number] cedwards 04:25 PM 5Fr FR 4 catheter inserted over the wire [facility] cedwards 04:26 PM Recorded Pressure: Ao, HR=80, Condition=Condition 1 (Aorta) Ao 113/69/88 04:26 PM SVG to the 2nd OM angio performed in multiple views. cedwards 04:28 PM Left CHRISTOS to the LAD angio performed in multiple views. cedwards 04:28 PM Recorded Pressure: Ao, HR=80, Condition=Condition 1 (Aorta) Ao 112/76/93 04:29 PM Time: 16:29 Versed 0.5 mg Intravenous Given by Gene Allen RN cedwards 04:30 PM HR=76 bpm, KLOD=949/80 mmhg, SpO2=98.0 %, Resp=10 B/min, EtCO2=32 mmHg 04:30 PM Time: 16:30 Nitroglycerin 200 mcg Intracoronary Given by Sterling Ruiz MD cedwards 04:31 PM Time: 16:31 Nitroglycerin 200 mcg Intracoronary Given by Sterling Ruiz MD cedwards 04:33 PM 0.035 260cm Navilyst 3mmJ wire [id number] cedwards 04:34 PM Recorded Pressure: Ao, HR=83, Condition=Condition 1 (Aorta) Ao 98/72/83 04:34 PM HR=82 bpm, DQBX=688/69 mmhg, SpO2=98.0 %, Resp=8 B/min, EtCO2=32 mmHg 04:34 PM Recorded Pressure: Ao, HR=85, Condition=Condition 1 (Aorta) Ao 95/70/82 04:35 PM Time: 16:34 Nitroglycerin 100 mcg Intracoronary Given by Sterling Ruiz MD cedwards 04:36 PM Wire removed cedwards 04:36 PM Catheter removed cedwards 04:36 PM 5Fr FL 4 catheter inserted over the wire [facility] cedwards 04:37 PM LCA angiography performed in multiple views. cedwards 04:37 PM Time: 16:22 Patient comfortable and pain free: Yes cedwards 04:39 PM Catheter removed cedwards 04:39 PM HR=84 bpm, AAWY=443/66 mmhg, SpO2=98.0 %, Resp=8 B/min 04:39 PM 5Fr Pigtail catheter inserted over the wire DN cedwards 04:39 PM Recorded Pressure: LV, HR=87, Condition=Condition 1 (Left Ventricle) LV 100/6/6 04:40 PM Catheter crossed the aortic valve and was selectively placed in the left ventricle. Pressures recorded on pullback for left heart catheterization. cedwards 04:41 PM Catheter removed cedwards 04:44 PM Catheter removed cedwards 04:44 PM Procedure completed at 16:44 02/16/2019 cedwards 04:44 PM HR=86 bpm, CTGP=037/83 mmhg, SpO2=97.0 %, Resp=9 B/min 04:44 PM Coronary Dominance: Left cedwards 04:44 PM Did you address ANN flow and Dominance? Yes cedwards 04:44 PM Isovue 370 - 200ml,1 Bottle(s) used. cedwards 04:45 PM Sign out completed: Radiation Dose 335.16 mGy, 37.40 Gy/cm2 Fluoro Time: 4 Isovue 370 - 200ml contrast 57 ml given by Cheryle Ruiz MD. Complications: None. The patient was discharged out of the orthodontic lab technician in stable condition. Sedation minutes 29. Cardiac Rehab Consult needed: Yes. Confirmed administered medications: Yes cedwards 04:45 PM Sheath left in place to be pulled on floor/holding areaV+Pad cedwards 04:45 PM Estimated Blood Loss: minimal cedwards 04:45 PM Post ECG NSR cedwards 04:45 PM Post Blood Pressure 128/83 cedwards 04:46 PM Information taught Cardiac Cath and V+ Pad cedwards 04:46 PM Education needs Procedure, Plan of Care, and Disease Process cedwards 04:46 PM Learning barriers :None cedwards 04:46 PM Education Methods Verbal cedwards 04:46 PM Education evaluation Able to repeat information cedwards 04:46 PM Site status No bleeding/hematoma - Rt Groin as reported by Jaime Messer RN at 16:46 cedwards 04:46 PM Opsite applied cedwards 04:46 PM Plavix, Effient or Brilinta given No cedwards 04:46 PM Patient out of room: 16:46 cedwards 04:46 PM Family not available cedwards 04:47 PM Complications: None cedwards 04:50 PM Lesion found in Proximal RCA. Pre Stenosis: 100 Pre ANN Flow: cedwards 04:50 PM Lesion found in Proximal LAD. Pre Stenosis: 100 Pre ANN Flow: cedwards 04:50 PM Lesion found in Proximal Circumflex. Pre Stenosis: 30 Pre ANN Flow: cedwards 04:51 PM At 16:51 the ACT was 125 seconds. cedwards 05:06 PM Arterial sheath pulled using manual compression and V+ Pad for 14 minutes by [facility], Sandra RT (R) tsites 05:23 PM Site status No bleeding/hematoma - Rt Groin as reported by [facility], Sandra RT (R) at 17:23 tsites 05:23 PM Opsite applied tsites 05:23 PM Report given to stacey WEEKS Pt taken to E Room #28. 17:23 tsites Complications Complication None None Hemodynamics Pressures Site Systolic/A Wave Diastolic/V Wave Mean AO 113 69 88 AO 112 76 93 AO 98 72 83 AO 95 70 82 LV 100 6 6 Post Procedure Information Blood Pressure: 128/83 mmHg Rhythm: NSR Post procedural instructions were given Closure Device Time Device Success/Fail 02/16/2019 4:57:00 PM Mechanical Compression Successful Site Checks Time Location Status Staff Sheath In? Note 04:46 PM Rt Groin No bleeding/hematoma Jaime Messer RN 05:23 PM Rt Groin No bleeding/hematoma Sites, Sandra RT (R) Pulses Time Site Pre-Procedure Post-Procedure Note Bilateral DP & PT 2+ 2+ Bilateral radial 2+ Updated by Sandracarol West RT (R) on 02/16/2019 5:24:45 PM Sandra West RT electronically signed on 02/16/2019 5:25:29 PM with status of Final
--- NOTE | 2019-02-16 17:49 | Electrocardiograph Report ---
[address] [place] [address] Test Date: 2019-02-15 Pat Name: Benita Youssef Department: EXAMC2 Room: 2N8 Gender: F Manager Fire: : 1970 Requested By: Ahmet Roberts Order Number: [id number] Reading MD: Helen Villalobos Measurements Intervals Echo Rate: 93 P: 72 WA: 162 QRS: 52 QRSD: 98 T: 126 QT: 369 QTc: 459 Interpretive Statements Sinus rhythm Abnrm T, consider ischemia, anterolateral lds Electronically Signed On 02-16-2019 17:48:14 EDT by Helen Villalobos
[2019-02-16] MEDS ORDERED: *HR* HYDROcodone/Acet 5/325 mg TABLET PO ONE (18:11)
[2019-02-16] MEDS ORDERED: Nitroglycerin 1 INCH/GM PACKET TP ONE (18:51)
[2019-02-16] MEDS ORDERED: Insulin LISPRO 300 UNITS/3 ML VIAL SQ SCH (22:15)
[2019-02-17] MEDS: Heparin 25,000 UNIT/250 ML D5W 25,000 UNIT/250 ML IV.SOLN IVC SCH (05:48)
--- NOTE | 2019-02-17 07:58 | Cardiology Progress Note ---
<William Sapp - Last Filed: 02/17/19 10:27> Date of Encounter: 02/17/19 Time of Encounter: 07:56 Assessment and Plan (1) NSTEMI (non-ST elevated myocardial infarction) Current Visit: Yes Status: Acute 48 year old female with a history of severe three vessel coronary artery disease s/p CABG 2 of 2 patent bypass grafts and recent successful PTCA/Drug-Eluting Stent placement in the distal ODOM on 01/12/19 presented complaining of chest pain, nausea, shortness of breath, and diaphoresis. EKG revealed new T wave inversions in lead V2. Patient denies missing any doses of DAPT. Symptoms improved with nitroglycerin paste and Morphine in the ED. Serial troponins peaked at 0.55 and patient was started on a heparin drip. C revealed severe 2 vessel coronary artery disease with 2 of 2 patent bypass grafts. Increased dose of Imdur from 30 mg to 60 mg daily. Blood pressure stable. Continue medical therapy including aspirin, Brilinta, statin, beta mireille, and Imdur. Will sign off, follow up with cardiology as an outpatient. (2) CAD (coronary artery disease) Current Visit: Yes Status: Chronic [facility] 02/16/19: Severe two vessel coronary artery disease s/p CABG 2 of 2 patent bypass grafts. No intervention. [facility] 01/12/19: Severe three vessel coronary artery disease s/p CABG 2 of 2 patent bypass grafts. Patient had successful PTCA/Drug-Eluting Stent placement in the distal ODOM. Continue aspirin, Brilinta, beta mireille, statin, Imdur, and nitroglycerin. Aggressive risk factor modification. Qualifiers: Coronary Disease-Associated Artery/Lesion type: unspecified vessel or lesion type [place] vs. transplanted heart: [place] heart Associated angina: with unstable angina Qualified Code(s): I25.110 - Atherosclerotic heart disease of [place] coronary artery with unstable angina pectoris (3) HTN (hypertension) Current Visit: No Status: Chronic Blood pressure controlled. Continue beta mireille and Imdur. Qualifiers: Hypertension type: essential hypertension Qualified Code(s): I10 - Essential (primary) hypertension (4) HLD (hyperlipidemia) Current Visit: No Status: Chronic Continue statin. Qualifiers: Hyperlipidemia type: unspecified Qualified Code(s): E78.5 - Hyperlipidemia, unspecified (5) Diabetes mellitus Current Visit: Yes Status: Chronic Management per primary team. 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 (8) Hypothyroidism Current Visit: No Status: Chronic Management per primary team. Qualifiers: Hypothyroidism type: unspecified Qualified Code(s): E03.9 - Hypothyroidism, unspecified (9) Obesity (BMI 30.0-34.9) Current Visit: Yes Status: Chronic Lifestyle modification. Discussion w patient/family: The assessment and plan as outlined above was discussed with the patient and/or family members who expressed understanding and agreement. All questions were an swered. Thank you for involving us in the care of your patient. Please call with any questions. Subjective Principal diagnosis: CP Interval history: Patient seen and examined resting comfortable in bed s/p [facility] yesterday. She did not receive any additional coronary stents yesterday and denies any further chest pain at this time. Patient is tolerating increased dose of Imdur today with stable blood pressures. She agrees to follow up with cardiology as an outpatient. Objective Vital Signs, Last 4 Hours Temp Pulse Resp BP Pulse Ox 02/17/19 07:02 98.0 F 78 14 109/65 97 02/17/19 04:43 98.0 F 80 15 117/69 97 General: Conversant, No Apparent Distress HEENT: Atraumatic, Normocephaly, Mucus Membranes Moist Neck: No JVD, Normal carotid pulses Cardiac: Reg Rate and Rhythm, Normal S1 and S2 Lungs: Normal Breath Sounds, No Wheeze, Rales, Rhonchi Neuro: Alert and responsive, No focal deficits noted Abdomen: Soft, Non-Tender Skin: No rashes noted on visualized skin Musculoskeletal: No Chest Wall Tenderness Extremities: No Clubbing, No Cyanosis, No Edema, Normal Pulses Results 02/16/19 02:08 02/15/19 23:52 Lab Results 02/17/19 02:08 Troponin I 0.44 H* - Imaging and Cardiology Cardiac cath: report reviewed - VTE Reasons for not Prescribing Prophylaxis: Not indicated-Anticoagulated or INR therapeutic Consult Discharge Plan - Plan Referrals: Evangelina Mehta MD [Primary Care Provider] - <Helen Villalobos - Last Filed: 02/17/19 14:12> Date of Encounter: 02/17/19 Assessment and Plan Discussion w patient/family: I examined this patient and my medical decision-making was reviewed with the Resident Physician. I agree with the documented findings, disposition and treatment plan as described. Ms. Youssef is feeling well today. She denies further chest pain. No right groin discomfort. Imdur increased yesterday - coronaries responded well to IC NTG. Blood pressure is tolerating increased Imdur. Recommend ambulating pat ient prior to discharge. If asymptomatic and hemodynamically stable, no further cardiac workup is warranted. Continue cardiac meds. Recommend outpatient follow up with Dr. Ruiz. Signing off. Objective Vital Signs, Last 4 Hours Temp Pulse Resp BP Pulse Ox 02/17/19 11:00 98.2 F 79 14 123/70 97 Results 02/16/19 02:08 02/15/19 23:52 Lab Results 02/17/19 02:08 Troponin I 0.44 H*
[2019-02-17] MEDS: Aspirin Enteric Coated 81 MG Tablet PO SCH (08:02)
[2019-02-17] MEDS: *HR* Ticagrelor 90 MG TABLET PO SCH (08:03)
[2019-02-17] MEDS: Insulin LISPRO 300 UNITS/3 ML VIAL SQ SCH ×3 (08:06→16:22)
[2019-02-17] MEDS ORDERED: Isosorbide MONOnitrate (24 HR) 60 MG TAB.ER.24H PO SCH (09:00)
[2019-02-17 15:40] VITALS: BP 123/73
--- NOTE | 2019-02-17 16:50 | Discharge Summary ---
<Migel Panda - Last Filed: 02/17/19 18:30> - NOTES TO OUTPATIENT PROVIDER Notes to Outpatient Provider: Patient with significant cardiac history was admitted for chest pain. Cardiology evaluated, performed LHC. Demonstrated severe 2 vessel disease, bypass grafts and stents patent. Medical manamgent ninoska mmended. Patient recieved 24hr heparin drip, will discharge with increased Imdur. Orders not resulted at time of discharge: Pending orders 02/16/19 08:41 ECG 12 lead ECG [ECG] Routine Date of Encounter: 02/17/19 Time of Encounter: 08:00 - Discharge Diagnosis (1) NSTEMI (non-ST elevated myocardial infarction) Priority: Primary Status: Acute Assessment and Plan: History of Severe 3 vessel disease, s/p 2v CABG w/ patent grafts C 01/13 with PTCA/KAVITA to Distal ODOM Presented with Chest pain, elevated trop peak of 0.55, on heparin drip Evaluated by cardiology, C performed Recommended 24-hour heparin drip and medical management (2) CAD (coronary artery disease) Priority: Secondary Status: Chronic Assessment and Plan: Severe multivessel disease as above Continue ASA, Statin, BB, Imdur, NTG, Brilinta Qualifiers: Coronary Disease-Associated Artery/Lesion type: unspecified vessel or lesion type [place] vs. transplanted heart: [place] heart Associated angina: with unstable angina Qualified Code(s): I25.110 - Atherosclerotic heart disease of [place] coronary artery with unstable angina pectoris (3) HTN (hypertension) Priority: Secondary Status: Chronic Qualifiers: Hypertension type: essential hypertension Qualified Code(s): I10 - Essential (primary) hypertension (4) HLD (hyperlipidemia) Priority: Secondary Status: Chronic Qualifiers: Hyperlipidemia type: unspecified Qualified Code(s): E78.5 - Hyperlipidemia, unspecified (5) Diabetes mellitus Priority: Secondary Status: Chronic Qualifiers: Diabetes mellitus type: type 2 Diabetes mellitus rat exterminator insulin use: without rat exterminator use Diabetes mellitus complication status: without complication Qualified Code(s): E11.9 - Type 2 diabetes mellitus without complications (6) Hx-TIA (transient ischemic attack) Priority: Secondary Status: Chronic (7) Hypothyroidism Priority: Secondary Status: Chronic Qualifiers: Hypothyroidism type: unspecified Qualified Code(s): E03.9 - Hypothyroidism, unspecified (8) Obesity (BMI 30.0-34.9) Priority: Secondary Status: Chronic (9) Mt's disease Priority: Secondary Status: Chronic Hospital course: Ms. Youssef is a 48 year old female with past medical history of hypertension, hyperlipidemia, Ormund's syndrom (retroperitoneal firbosis) CAD status post 2 vessel CABG and multiple stents in 01/13 who presented to the ED due to chest pain, nausea, shortness of breath and diaphoresis. She was found to have elevated troponins and non-ST elevation EKG changes. She was admitted for an STEMI and ACS rule out. Cardiology evaluated the patient and took her for left heart catheterization. She was found to have patent bypass grafts and stents but severe two-vessel disease. A 24-hour heparin drip and continue medical management was recommended. The patient completed her heparin drip and was c onsidered medically stable for discharge. She was discharged in stable condition with home medications and Imdur was increased from 30 mg to 60 mg. Discharge discussed with: patient - Time Spent with Patient Total time spent providing and/or coordinating discharge services: - Discharge Medications Prescriptions: New RX: Isosorbide MONOnitrate (24 HR) [Imdur] 60 mg PO DAILY 30 Days #30 tab.er.24h Continue RX: Aspirin [Lo-Dose Aspirin EC] 81 mg PO DAILY RX: Atorvastatin [Lipitor] 40 mg PO HS #30 tablet RX: Metoprolol Tartrate 50 mg PO BID RX: Ticagrelor [Brilinta] 90 mg PO BID 60 Days #120 tablet RX: Omeprazole [PriLOSEC] 40 mg PO DAILY RX: Levothyroxine [Synthroid] 75 mcg PO 0630 RX: Nitroglycerin [Nitrostat] 0.4 mg SL Q5M PRN PRN Reason: Chest Pain Discontinued Isosorbide MONOnitrate [Isosorbide Mononitrate ER] 30 mg PO DAILY Home Medications: RX: Aspirin [Lo-Dose Aspirin EC] 81 mg PO DAILY 01/17/18 [History] RX: Atorvastatin [Lipitor] 40 mg PO HS #30 tablet 12/16/18 [Rx] RX: Metoprolol Tartrate 50 mg PO BID 01/12/19 [History] RX: Ticagrelor [Brilinta] 90 mg PO BID 60 Days #120 tablet 01/13/19 [Rx] RX: Levothyroxine [Synthroid] 75 mcg PO 0630 02/16/19 [History] RX: Nitroglycerin [Nitrostat] 0.4 mg SL Q5M PRN 02/16/19 [History] RX: Omeprazole [PriLOSEC] 40 mg PO DAILY 02/16/19 [History] RX: Isosorbide MONOnitrate (24 HR) [Imdur] 60 mg PO DAILY 30 Days #30 tab.er.24h 02/17/19 [Rx] Allergies/Adverse Reactions: Allergy/AdvReac Type Severity Reaction Status Date / Time codeine AdvReac "PROJECTILE Verified 02/16/19 00:33 VOMITING" anesthesia AdvReac "PROJECTILE Uncoded 02/16/19 00:33 VOMITING" Date of admission: 02/16/19 01:23 Primary care physician: Evangelina Mehta Consults: 02/16/19 01:05 Consult to Cardiology [CONS] Routine Comment: Consulting Provider: Helen Villalobos Reason for Consult: NSTEMI,PERSISTENT PAIN. TROP 0.44, CONSIDER CARDIAC CATH Time Notified: 01:06 Call Completed: No 02/16/19 01:56 Consult to Nutrition [CONS] Routine Comment: Consulting Provider: NUTRITION Reason for Dietary Consult: MST Score Discharging clinician: Migel Panda Anticipated date of discharge: 02/17/19 - Constitutional Vitals: Temp Pulse Resp BP Pulse Ox 97.9 F 89 14 123/73 94 02/17/19 15:38 02/17/19 15:38 02/17/19 15:38 02/17/19 15:38 02/17/19 15:38 Exam: Gen: Vitals noted. No acute distress. Eyes: anicteric sclerae, moist conjunctivae; no lid-lag; Pupils equal and reactive to light HENT: Atraumatic; oropharynx clear with moist mucous membranes and no mucosal ulcerations; normal hard and soft palate Neck: Trachea midline; supple, no thyromegaly or lymphadenopathy Cardiac: RRR, no murmur, +S1/S2 Pulmonary: CTA bilaterally, no wheezes, rales or rhonchi, equal chest expansion Abdomen: soft, nontender, no guarding. No masses or hepatosplenomegaly MSK: ROM intact, no joint swelling noted Extremities: no BLE edema, nontender calf, no cyanosis or clubbing Skin: Normal temperature, turgor and texture; no rash, ulcers or subcutaneous nodules Neuro: moves all extremities, no focal deficits. Psych: Appropriate mood and behavior. 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) Follow Up With: Evangelina Mehta MD [Primary Care Provider] - (appt requested) Cheryle Ruiz [Partnered Physician] - (appt requested) Forms: Work/School Release - Diet and Activity Activity: resume usual activities as tolerated Diet: diabetic diet - VTE Reasons for not Prescribing Prophylaxis: Not indicated-Anticoagulated or INR therapeutic <Josesito Mendoza - Last Filed: 02/17/19 18:54> Orders not resulted at time of discharge: Pending orders 02/16/19 08:41 ECG 12 lead ECG [ECG] Routine Date of Encounter: 02/17/19 - Discharge Diagnosis (1) NSTEMI (non-ST elevated myocardial infarction) Status: Acute (2) CAD (coronary artery disease) Status: Chronic Qualifiers: Coronary Disease-Associated Artery/Lesion type: unspecified vessel or lesion type [place] vs. transplanted heart: [place] heart Associated angina: with unstable angina Qualified Code(s): I25.110 - Atherosclerotic heart disease of [place] coronary artery with unstable angina pectoris (3) HTN (hypertension) Status: Chronic Qualifiers: Hypertension type: essential hypertension Qualified Code(s): I10 - Essential (primary) hypertension (4) HLD (hyperlipidemia) Status: Chronic Qualifiers: Hyperlipidemia type: unspecified Qualified Code(s): E78.5 - Hyperlipidemia, unspecified (5) Diabetes mellitus Status: Chronic Qualifiers: Diabetes mellitus type: type 2 Diabetes mellitus rat exterminator insulin use: without residential use Diabetes mellitus complication status: without complication Qualified Code(s): E11.9 - Type 2 diabetes mellitus without complications (6) Hx-TIA (transient ischemic attack) Status: Chronic (7) Hypothyroidism Status: Chronic Qualifiers: Hypothyroidism type: unspecified Qualified Code(s): E03.9 - Hypothyroidism, unspecified (8) Obesity (BMI 30.0-34.9) Status: Chronic (9) Mt's disease Status: Chronic Hospital course: Ms. Youssef is a 48 year old female - Time Spent with Patient Total time spent providing and/or coordinating discharge services: Date of admission: 02/16/19 01:23 Primary care physician: Evangelina Mehta Consults: 02/16/19 01:05 Consult to Cardiology [CONS] Routine Comment: Consulting Provider: Helen Villalobos Reason for Consult: NSTEMI,PERSISTENT PAIN. TROP 0.44, CONSIDER CARDIAC CATH Time Notified: 01:06 Call Completed: No 02/16/19 01:56 Consult to Nutrition [CONS] Routine Comment: Consulting Provider: NUTRITION Reason for Dietary Consult: MST Score - Constitutional Vitals: Temp Pulse Resp BP Pulse Ox 97.9 F 89 14 123/73 94 02/17/19 15:38 02/17/19 15:38 02/17/19 15:38 02/17/19 15:38 02/17/19 15:38 - Attending Attestation I examined this patient and my medical decision-making was reviewed with the Resident Physician. I agree with the documented findings, disposition and treatment plan as described except to the extent set forth below.
== END 2019-02-17 19:00 | disposition home or self-care (01) ==
LOC: 2NENU 23:07 → EMEROOARM 23:07 → 2NENU 02-16 01:37
PROVIDERS: ADMIT Pediatrics; ATTEND Pediatrics